=== PATIENT | male | born 1955 | race Caucasian/White ===

== ENCOUNTER 2022-07-02 11:18 | Emergency (ER) | payer OTHER, SELFPAY ==
--- NOTE | ~2022-07-02 | XR_ITS ---
EXAMINATION: XR finger 1st RT min 2V INDICATION: Right first finger pain status post puncture injury TECHNIQUE: Three views of the right first finger are obtained. COMPARISON: None available FINDINGS: Bone alignment is normal. There is no fracture. There is moderate osteoarthritis at the fir st carpometacarpal joint the first interphalangeal joint, and the second metacarpophalangeal joint. T here is soft tissue swelling of the finger. IMPRESSION: 1. Soft tissue swelling without acute osseous abnormality. Reviewed, dictated and finalized at location A.
[2022-07-02 11:32] VITALS: BP 136/74; PULSE 76; RESP 14; TEMP 37.2; O2SAT 98
[2022-07-02 11:39] VITALS: BP 136/74; PULSE 76; RESP 14; TEMP 37.2; O2SAT 98
--- NOTE | 2022-07-02 13:02 | ED.WOUNDLAC ---
HPI - Wound/Laceration General Chief Complaint: Wound/Laceration Stated Complaint: Laceration to Right Hand Time Seen by Provider: 07/02/22 11:35 Source: patient, family, RN notes reviewed and old records reviewed Mode of arrival: ambulatory Limitations: no limitations History of Present Illness HPI narrative: 66 year old male accompanied by presents to express care with complaints of laceration to right hand at the davey aspect of proximal thumb region which occurred at 1000 today when patient was strapping a trailer and handle broke puncturing the palm of right hand near base of thumb. Patient has good mobility of hand and fingers with no tingling or numbness of thumb.Patient has strong right radial pulse. Patient has 2.5cmx 3cm puncture type of laceration bleeding controlled. Patient reports that his tetanus is up to date. Onset (ago): hour(s) (1000 today) Location: other (right hand) Extremity Location: Right: hand Place: outdoors Patient tetanus UTD: Yes Treatments prior to arrival: bandage Related Data Home Medications Medication Instructions Recorded Confirmed lisinopril 20 mg tablet 20 mg PO DAILY 07/02/22 07/02/22 Allergies Allergy/AdvReac Type Severity Reaction Status Date / Time No Known Allergies Allergy Verified 07/02/22 11:37 Review of Systems Review of Systems: CONSTITUTIONAL: Denies fever, chills, or sweats. EYES: Denies visual changes, redness, or discharge. ENT: Denies rhinorrhea, congestion, sore throat, or otalgia. CARDIOVASCULAR: Denies chest pain, palpitations, or edema. RESPIRATORY: Denies cough or dyspnea. GASTROINTESTINAL: Denies abdominal pain, nausea, vomiting, or diarrhea. GENITOURINARY: Denies dysuria or hematuria. SKIN: large laceration to the right davey aspect of right hand near proximal thumb MUSCULOSKELETAL: Denies back pain, joint pain, or myalgia. NEUROLOGIC: Denies headache, numbness, or weakness. PSYCHIATRIC: Positive fro history of anxiety or depression. All systems reviewed & are unremarkable except as noted in HPI and below PMFSH Past Medical History Medical History (Updated 07/05/22 @ 09:40 by Rossana Bustillos NP) COPD (chronic obstructive pulmonary disease) Hypertension Surgical History Surgical History (Updated 07/05/22 @ 09:41 by Rossana Bustillos NP) History of ankle surgery left ankle ORIF Social History Social History (Updated 07/05/22 @ 09:40 by Rossana Bustillos NP) Tobacco type: smokeless tobacco Additional smoking assessment comments: patient smoked for 45 years quit 6 years ago now chews tobacco Alcohol intake: current Alcohol use details: social Substance use type: does not use Living arrangements: with family Occupation/Education: retired Gender identity (if verbalized by the patient): Male Comments At time of signature, agree with nursing past medical, surgical, social and family history. There is no relevant family history pertinent to the presenting complaint Exam Narrative: GENERAL: Well-appearing, well-nourished, and in no acute distress.reports pain level 6/10 HEAD: Normocephalic, atraumatic. EYES: PERRLA and EOMI. ENT: Nares clear, no rhinorrhea or epistaxis. Mucous membranes moist.TM normal with good light reflex, throat pink with no lesions or swelling yers oNECK: Supple.no lymphadenopathy CHEST: Clear to auscultation. No respiratory distress.SAO2 98% HEART: Regular rate and rhythm. No murmur heard. Normal peripheral pulses. ABDOMEN: Soft, nontender, nondistended, normal active bowel sounds. EXTREMITIES: Normal range of motion. No edema. SKIN: Warm, dry, 2.5cm by 3cm laceration with puncture wound and inner tissue laceration surrounded by strips of laceration each side NEURO: No focal deficits. Alert and oriented x3. Course Course Level of Care: Express Care Visit Vital Signs Vital signs: Vital Signs Temperature 37.2 C 07/02/22 11:32 Pulse Rate 76 07/02/22 11:32 Respiratory Rate 14 07/02/22
== END 2022-07-02 13:14 | disposition home or self-care (01) ==
PROVIDERS: Emergency Provider Registered Nurse; PCP Internal Medicine
DX: S61.411A Laceration without foreign body of right hand, initial encounter (principal); T14.90XA Injury, unspecified, initial encounter
CPT/HCPCS: 12001; 73140; 99213; G0463

== ENCOUNTER 2022-08-20 08:47 | Emergency (ER) | payer MEDICARE, SELFPAY ==
--- NOTE | ~2022-08-20 | XR_ITS ---
EXAMINATION: XR chest 2V DATE: 08/20/2022 09:58 INDICATION: Influenza with coarse right lower lung zones TECHNIQUE: PA and lateral views of the chest were obtained. COMPARISON: None FINDINGS: Mild hyperexpansion of lungs. Mild right apical pleural-parenchymal scarring. Perihilar mild bronchia l wall thickening without focal airspace opacities. No pleural effusion or pneumothorax. The cardiome diastinal silhouette is normal. Mild thoracic spondylosis with mild anterior wedging of a few lower t horacic vertebral bodies. IMPRESSION: 1. Mild perihilar bronchial wall thickening without focal airspace opacities which could be seen with bronchitis, viral pneumonia, mild pulmonary edema or reactive airway disease/asthma. Reviewed, dictated and finalized at location B. [employer] IMPRESSION: 1. Mild perihilar bronchial wall thickening without focal airspace opacities wh ich could be seen with bronchitis, viral pneumonia, mild pulmonary edema or heather ctive airway disease/asthma.
[2022-08-20 08:58] VITALS: BP 140/91; PULSE 81; RESP 16; TEMP 37.6; O2SAT 99
--- NOTE | 2022-08-20 09:44 | ED.URI ---
HPI - URI/Sore Throat General Chief Complaint: Upper Respiratory Infection Stated Complaint: Chest Congestion/Cough Time Seen by Provider: 08/20/22 09:44 Source: patient, RN notes reviewed and old records reviewed Mode of arrival: ambulatory Limitations: no limitations History of Present Illness HPI Narrative: 67 year old male presents to [facility] care with complaints of fevers, chills, cough with nasal congestion and drainage since Thursday.Patient reports that he has coughed so much his abdominal muscles are sore, he does have history of COPD. Patient reports that he has had COVID immunizations and also flu shot this year. Patient reports body aches and generalized weakness. MD elicited complaint: fever, cough, rhinorrhea, nasal congestion and other (body aches) Pertinent past history: COPD Onset (ago): day(s) (5) Able to tolerate fluids by mouth: Yes Treatments prior to arrival: acetaminophen, ibuprofen and other (NyQuil and DayQuil) Related Data Home Medications Medication Instructions Recorded Confirmed lisinopril 20 mg tablet 20 mg PO DAILY 07/02/22 08/20/22 budesonide-formoterol HFA 160 2 puff inhalation BID 08/20/22 08/20/22 mcg-4.5 mcg/actuation aerosol inhaler Allergies Allergy/AdvReac Type Severity Reaction Status Date / Time No Known Allergies Allergy Verified 08/20/22 09:22 Review of Systems Review of Systems: CONSTITUTIONAL: reports malaise, chills, sweats, or fever. EYES: Denies visual changes, redness, or discharge. ENT: Reports rhinorrhea, congestion, sinus pain, no otalgia or sore throat. CARDIOVASCULAR: Denies chest pain, palpitations, or edema. RESPIRATORY: Reports cough.? Denies acute dyspnea. GASTROINTESTINAL: Denies abdominal pain, nausea, vomiting, diarrhea SKIN: Denies rash or itching. MUSCULOSKELETAL: Reports myalgia. NEUROLOGIC: Denies headache. All systems reviewed & are unremarkable except as noted in HPI and below [facility] Past Medical History Medical History (Updated 08/21/22 @ 00:00 by Nisha Freeman) COPD (chronic obstructive pulmonary disease) Hypertension Surgical History Surgical History (Updated 07/05/22 @ 09:41 by Rossana Bustillos NP) History of ankle surgery left ankle ORIF Social History Social History (Updated 11/18/22 @ 10:02 by VITALY Bills Tobacco type: smokeless tobacco Additional smoking assessment comments: patient smoked for 45 years quit 2012, now chews tobacco on occasion Alcohol intake: current Alcohol use details: social Substance use type: does not use Gender identity (if verbalized by the patient): Male Comments At time of signature, agree with nursing past medical, surgical, social and family history. There is no relevant family history pertinent to the presenting complaint Exam Narrative: GENERAL: Well-appearing, well-nourished, and in no acute distress. HEAD: Normocephalic EYES: PERRLA, conjunctivae clear ENT: Nares clear, turbinates edematous and erythematous, clear discharge. Mucous membranes moist. TM pearly carr with dull light reflex bilaterally; no tragal tenderness. Oropharynx erythematous without lesions. Tonsils not enlarged and without exudate, no drooling, no hoarseness, no trismus, uvula midline. NECK: Supple. No lymphadenopathy CHEST: Coarse right mid and lower lobe on auscultation, breath sounds equal. No wheezing, rhonchi, rales, or stridor. No respiratory distress, speaks in full sentences.SAO2 99% on room air HEART: Regular rate and rhythm. No murmur heard. SKIN: Warm, dry, no rash. NEURO: Alert and oriented x3. PSYCH: Normal mood and affect Course Course Emergency Course: Patient is aware of diagnosis, understands and agrees to treatment plan.? Anticipatory guidance given.? Patient agrees to follow-up as directed and is aware of reasons to seek care at the emergency department. Portions of this record may have been created with voice recognition software Level
== END 2022-08-20 10:30 | disposition home or self-care (01) ==
PROVIDERS: Emergency Provider Registered Nurse; PCP Internal Medicine
DX: J10.1 Influenza due to other identified influenza virus with other respiratory manifestations (principal); R05.1 Acute cough; J44.9 Chronic obstructive pulmonary disease, unspecified; I10 Essential (primary) hypertension
CPT/HCPCS: 71046; 87804; 99213; G0463

== ENCOUNTER 2025-02-02 09:17 | Emergency (ER) | payer MEDICARE, SELFPAY ==
--- NOTE | ~2025-02-02 | XR_ITS ---
Clinical Indication: Cough PA and lateral views of the chest: Comparison: 08/20/2022 Findings: The lungs are clear, without evidence of focal consolidation or pleural effusion. Cardiome diastinal silhouette is within normal limits. Bones and soft tissues are unremarkable. Impression: Normal chest. Reviewed, dictated and finalized at location . Impression: Normal chest.
--- OUTSIDE RECORDS SUMMARY | 2025-02-02 09:38 | XMS_ITS | Clinical Summary ---
Author Organization [facility] Address [address] [address] Phone Care Team Providers Care Chemical Dependency Professional Name Role Phone Checo Baez MD Primary Care Provider [phone] Allergies No known active allergies Medications budesonide-formo terol fumarate (Symbicort) 160-4.5 MCG/ACT AerosolIndicatio ns:Pulmonary emphysema, unspecified emphysema type (HCC) take 2 Puffs by inhalation 2 times daily. 10.2 g 3 4 Active Additional Information Patient not taking.Reported on 11/23/2024 lisinopril (PRINIVIL, ZESTRIL) 20 MG Tablet TAKE 1 TABLET BY MOUTH EVERY DAY 90 Tablet 1 4 Active Additional Information Patient taking differently: EVERY MORNING, Reported on 12/07/2024 sertraline (ZOLOFT) 100 MG Tablet Take 100 mg by mouth daily. Active atorvastatin (LIPITOR) 40 MG Tablet Take 40 mg by mouth nightly. Active tiotropium-oloda terol (Stiolto Respimat) 2.5-2.5 MCG/ACT Aerosol Solution take 2 Puffs by inhalation every morning. Active ALBUTEROL IN take by inhalation as needed. Active Cyanocobalamin (VITAMIN B12 PO) Take by mouth every other day. Active Cholecalciferol (VITAMIN D3 PO) Take by mouth every other day. Active Active Problems Problem Noted Date Diagnosed Date Adenomatous polyp of sigmoid colon 12/07/2024 Physical exam, annual (Adult) 10/22/2018 Screening for colon cancer 04/12/2018 Panlobular emphysema 08/11/2016 Pulmonary nodules 08/11/2016 Tobacco abuse 02/05/2016 Gastroenteritis 10/17/2015 Hypertension Anxiety Cluster headaches Overview (09/18/2015): 2x week Encounters Date Type Department Care Team Description 12/08/2024 Results Follow-Up [facility] - Gastroenterology - [place] [address] [place] [address] Sukhi Short MD Pathology Surgical 12/07/2024 7:35 AM HEAT TREAT FURNACE OPERATOR Anesthesia Event [facility] Lab Periop [address] [facility] [place] [address] Jesus Washington Jr., [employer] MATE, [employer] OPERATOR 12/07/2024 7:30 AM HEAT TREAT FURNACE OPERATOR - 12/07/2024 8:00 AM HEAT TREAT FURNACE OPERATOR [facility] [address] [facility] [place] [address] Sukhi Short MD COLONOSCOPY- RECTAL POLYPECTOMY AT 10 CM(HOT SNARE), BASE OF RECTAL POLYP AT 10 CM BIOPSY (HOT AND COLD FORCEPS), TATTOO PER INTERJECT AT 10 CM 12/07/2024 6:35 AM HEAT TREAT FURNACE OPERATOR Ancillary [facility] Main [address] [facility] [place] [address] Sukhi Short MD 12/07/2024 6:28 AM HEAT TREAT FURNACE OPERATOR - 12/07/2024 9:02 AM HEAT TREAT FURNACE OPERATOR Hospital Encounter [facility] Lab Preop/Pacu II [address] [facility] [place] [address] Sukhi Short MD Adenomatous polyp of sigmoid colon Discharge Disposition: Discharged to home or Selfcare 12/07/2024 Travel 11/23/2024 Travel 11/08/2024 Telephone [facility] - Gastroenterology - [place] [address] [place] [address] Amina Syed APRN, EDUCATION AND OUTREACH COORDINATOR 11/08/2024 Telephone [facility] - Gastroenterology - [place] [address] [place] [address] Amina Syed APRN, EDUCATION AND OUTREACH COORDINATOR 11/07/2024 Telephone [facility] - Family Medicine - [place] [address] [place] [address] Checo Baez MD 11/07/2024 Telephone [facility] Call Center [address] [place] [address] Checo Baez MD Referral from Last 3 Months Immunizations Immunization Administration Dates Next Due COVID-19, MRNA, LNP-S, BIVAL ENT , PFIZER, 30 MCG/0.3 ML (12+ Y/O) 07/24/2022 Covid-19, Mrna, Lnp-s, Pf, 3 0 Mcg/0.3 Ml Dose (Pfizer) 12/23/2020,12/02/2020 Influenza Vaccine, Quadrivalent, PF 07/05,06/21/2021,06/08/2020,10/22,10/13/2017,08/11/2016,07/02/2015 Influenza, Quadrivalent, Adjuvanted 07/01/2023 Influenza, high-dose, trivalent, PF 10/13/2024 PUR FLU 3+ YRS PRES FREE QUAD IM 08/11/2016 Pneumococcal Vaccine Adult - 23 Valent 4 Pneumococcal conjugate PCV20 , polysaccharide VYD113 conjugate, adjuvant, PF 07/15/2022 Tetanus Toxoid, Unspecified Formulation 11/05/2011 Family History Medical History Relation Name Comments Cancer Father Congestive Heart Failure Mother Relation Name Status Comments Father Mother Alive Social History Tobacco Use Types Packs/Day Years Used Date Smoking Tobacco: Former Cigarettes Q uit: 02/25/2016 Smokeless Tobacco: Current Chew Tobacco Cessation:Ready to Q uit: Not Asked; Counseling Given: Not Answered Alcohol Use Standard Drinks/Week Comments Yes 10 (1 standard drink = 0.6 oz pu re alcohol) a week PHQ-2 Answer Date Recorded Total Score - Questions 1-9 0 12/04 Education Answer Date Recorded What is the highest level of school you have completed or the highest degree you have received? 12th grade 07/01/2023 Sexually Active Control Partners Comments Yes Female Sex and Gender Information Value Date Recorded Sex Assigned at Not on file Legal Sex Male 7:07 PM CDT Gender Identity Not on file Sexual Orientation Not on file Last Filed Vital Signs Vital Sign Reading Time Taken Comments Blood Pressure 112/72 12/07/2024 8:47 AM HEAT TREAT FURNACE OPERATOR Pulse 58 12/07/2024 8:47 AM HEAT TREAT FURNACE OPERATOR Temperature 36 C (96.8 F) 12/07/2024 8:47 AM HEAT TREAT FURNACE OPERATOR Respiratory Rate 18 12/07/2024 8:47 AM HEAT TREAT FURNACE OPERATOR Oxygen Saturation 100% 12/07/2024 8:47 AM HEAT TREAT FURNACE OPERATOR Inhaled Oxygen Concentration - - Weight 75.8 kg (167 lb) 11/23/2024 10:01 AM HEAT TREAT FURNACE OPERATOR Height 180.3 cm (5' 11 ) 11/23/2024 10:01 AM HEAT TREAT FURNACE OPERATOR Body Mass Index 23.29 11/23/2024 10:01 AM HEAT TREAT FURNACE OPERATOR Plan of Treatment Health Maintenance Due Date Last Done Comments Hepatitis C Virus (HCV) Screening 1955 TdaP Immunization 1955 Zoster Immunization (1 of 2) 2007 Respiratory Syncytial Virus (RSV) Immunization (Adult) (1 - Risk 60-74 years 1-dose series) 2017 Immunochemical Fecal Occult Blood 04/16/2019 04/16/2018 AAA Screening Ultrasound 2022 Cologuard 01/06/2025 01/06/2022, 05/16/2019 SARS-COV-2 Immunization ( season) 2025 10/13/2024, 07/29/2023, 07/24/2022, Additional history exists Colonoscopy 12/08/2027 12/07/2024 Colorectal Cancer Screening 12/08/2027 12/07/2024 Pneumococcal Immunization (50+ years) Completed 07/15/2022, 06/05/2014 Pneumococcal Immunization Combined Discontinued 07/15/2022, 06/05/2014 PSA Discussion Completed 07/14/2023, 12/03, 01/28/2016 Influenza Immunization Completed , 07/01/2023, 07/15/2022, Additional history exists Hepatitis B Immunization Aged Out No longer eligible based on patient's age to complete this topic Meningococcal Immunization (ACWY) Aged Out No longer eligible based on patient's age to complete this topic Rotavirus Immunization Aged Out No lo nger eligible based on patient's age to complete this topic Procedures Procedure Name Priority Date/Time Associated Diagnosis Comments PATHOLOGY SURGICAL Routine 12/07/2024 7: 52 AM HEAT TREAT FURNACE OPERATOR COLON CA SCRN NOT HI RSK IND 12/07/2024 7:35 AM HEAT TREAT FURNACE OPERATOR COLONOSCOPY- RECTAL POLYPECTOMY AT 10 CM(HOT SNARE), BASE OF RECTAL POLYP AT 10 CM BIOPSY (HOT AND COLD FORCEPS), TATTOO PER INTERJECT AT 10 CM Special Needs Dx pos cologuard COLORECTAL SCRN; HI RISK IND 12/07/2024 7:35 AM HEAT TREAT FURNACE OPERATOR COLONOSCOPY- RECTAL POLYPECTOMY AT 10 CM(HOT SNARE), BASE OF RECTAL POLYP AT 10 CM BIOPSY (HOT AND COLD FORCEPS), TATTOO PER INTERJECT AT 10 CM Special Needs Dx pos cologuard VA COLONOSCOPY FLX DX W/COLLJ SPEC WHEN PFRMD 12/07/2024 7:35 AM HEAT TREAT FURNACE OPERATOR COLONOSCOPY- RECTAL POLYPECTOMY AT 10 CM(HOT SNARE), BASE OF RECTAL POLYP AT 10 CM BIOPSY (HOT AND COLD FORCEPS), TATTOO PER INTERJECT AT 10 CM Special Needs Dx pos cologuard GI IMAGING - COLONOSCOPY Routine 12/07/2024 6:30 AM HEAT TREAT FURNACE OPERATOR PSA FREE & TOTAL 07/14/2023 12:0 0 AM CDT COLOGUARD Routine 01/06/2022 10:30 AM CDT Screening for colon cancer STOOL, OCCULT BLOOD IMMUNOASSAY (IFOB) Routine 04/16/2018 Screening for colon cancer from Last 3 Months or Most Recently Relevant to Health Maintenance Results * Pathology Surgical (12/07/2024 7:52 AM HEAT TREAT FURNACE OPERATOR) Case Report Surgical Pathology Report Case: [id number] Authorizing Provider: Sukhi Short MD Collected: 12/07/2024 07:52 AM Ordering Location: [facility] Received: 12/07/2024 09:52 [facility] Lab Preop/Pacu II Pathologist: Janie Rivas MD PhD Specimens: A) - Rectal, RECTAL POLYP AT 10 CM B) - Rectal, BASE OF RECTAL POLYP AT 10 CM 12/08/2024 8:48 AM HEAT TREAT FURNACE OPERATOR [facility] FINAL DIAGNOSIS A. Rectal polyp, polypectomy: - Tubular adenoma B. Base of rectal polyp at 10 cm, polypectomy: - Tubular adenoma 12/08/2024 8:48 AM HEAT TREAT FURNACE OPERATOR [facility] at 0848 HEAT TREAT FURNACE OPERATOR Pre-Operative Diagnosis POSITIVE COLOGUARD TEST 12/08/2024 8:48 AM HEAT TREAT FURNACE OPERATOR [facility] Gross Description A. RECTAL POLYP AT 10 CM The specimen presents in two formalin containers for gross and microscopic examination labeled with the patient's name, Emerson Larry. Part A is designated as rectal polyp at 10 cm. The specimen consists of multiple fragments of pink-machado tissue ranging from a fraction of a millimeter up to the largest measuring 1 cm in greatest dimension. The largest tissue will be bisected and submitted in cassette A1 and the remainder of the tissue will be submitted in cassette A2. B. BASE OF RECTAL POLYP AT 10 CM Part B is designated as base of rectal polyp at 10 cm. The specimen consists of four pieces of pink-machado to bright red tissue measuring 0.1 to 0.3 cm in greatest dimension. All submitted cassette B1. Total time of fixation is 13 hours, 54 minutes. KS/sb 12/08/2024 8:48 AM HEAT TREAT FURNACE OPERATOR [facility] Microscopic Description Microscopic examination was performed which supports the final diagnosis. All control tissues stained appropriately. 12/08/2024 8:48 AM HEAT TREAT FURNACE OPERATOR [facility] Tissue (Rectal) 12/07/2024 7 :52 AM HEAT TREAT FURNACE OPERATOR 12/07/2024 9:52 AM HEAT TREAT FURNACE OPERATOR Tissue specimen (specimen) (Rectal) 12/07/2024 8:00 AM HEAT TREAT FURNACE OPERATOR 12/07/2024 9:52 AM HEAT TREAT FURNACE OPERATOR us Sukhi Lj Short MD PATHOLOGY/CYTOLOGY ORDERAB LES Final Result [facility] [address] [facility] [place] [address] * GI IMAGING - COLONOSCOPY (12/07/2024 6:30 AM HEAT TREAT FURNACE OPERATOR) Sukhi Short MD IMG DIAGNOSTIC ORDERABLES Final Result * PSA FREE & TOTAL (07/14/2023 12:00 AM CDT) PSA (PROSTATE SPECIFIC ANTIGEN) 3.13 ng/mL SCAN 07/14/2023 Checo Baez MD CHEMISTRY ORDERABLES Final Re sult Performing Organization Address [facility] Co de Phone Number SCAN * COLOGUARD (01/06/2022 10:30 AM CDT) Cologuard Negative Negative [facility] Comment: NEGATIVE TEST RESULT. A negative Cologuard result indicates a low likelihood that a colorectal cancer (CRC) or advanced adenoma (adenomatous polyps with more advanced pre-malignant features) is present. The chance that a person with a negative Cologuard test has a colorectal cancer is less than 1 in 1500 (negative predictive value >99.9%) or has an advanced adenoma is less than 5.3% (negative predictive value 94.7%). These data are based on a prospective cross-sectional study of 10,000 individuals at average risk for colorectal cancer who were screened with both Cologuard and colonoscopy. (Adri Parra al, N Engl J Med 2014;370(14):2899-3022) The normal value (reference range) for this assay is negative. COLOGUARD RE-SCREENING RECOMMENDATION: Periodic colorectal cancer screening is an important part of preventive healthcare for asymptomatic individuals at average risk for colorectal cancer. Following a negative Cologuard result, the [place] Cancer Society and U.S. Multi-Society Task Force screening guidelines recommend a Cologuard re-screening interval of 3 years. References: [place] Cancer Society Guideline for Colorectal Cancer Screening: https://www.cancer.org/cancer/ovjhz-qjnzdl-vyalgs/qvolrfgna-bqdgzttpr-dvobxho/ acs-recommendations.html.; Tarik DK, Duc CR, Mariaelena CarrizalesK, Colorectal Cancer Screening: Recommendations for Physicians and Patients from the U.S. Multi-Society Task Force on Colorectal Cancer Screening , Am J Gastroenterology 2017; 112:9207-7857. TEST DESCRIPTION: Composite algorithmic analysis of stool DNA-biomarkers with hemoglobin immunoassay. Quantitative values of individual biomarkers are not reportable and are not associated with individual biomarker result reference ranges. Cologuard is intended for colorectal cancer screening of adults of either sex, 45 years or older, who are at average-risk for colorectal cancer (CRC). Cologuard has been approved for use by the U.S. FDA. The performance of Cologuard was established in a cross sectional study of average-risk adults aged 50-84. Cologuard performance in patients ages 45 to 49 years was estimated by sub-group analysis of near-age groups. Colonoscopies performed for a positive result may find as the most clinically significant lesion: colorectal cancer [4.0%], advanced adenoma (including sessile serrated polyps greater than or equal to 1cm diameter) [20%] or non- advanced adenoma [31%]; or no colorectal neoplasia [45%]. These estimates are derived from a prospective cross-sectional screening study of 10,000 individuals at average risk for colorectal cancer who were screened with both Cologuard and colonoscopy. (Adri Mccoy et al, N Engl J Med 2014;370(14):4111-2195.) Cologuard may produce a false negative or false positive result (no colorectal cancer or precancerous polyp present at colonoscopy follow up). A negative Cologuard test result does not guarantee the absence of CRC or advanced adenoma (pre-cancer). The current Cologuard screening interval is every 3 years. ([place] Cancer Society and U.S. Multi-Society Task Force). Cologuard performance data in a 10,000 patient pivotal study using colonoscopy as the reference method can be accessed at the following location: www.[employer]/results. Additional description of the Cologuard test process, warnings and precautions can be found at www.[employer].com. Stool 01/06/2022 10:3 0 AM CDT 01/07/2022 1:42 PM CDT Checo Baez MD BODY FLUIDS & STOOLS ORDERABL ES Final Result [facility] [address] [place] [address], [facility] [address] [place] [address] * STOOL, OCCULT BLOOD IMMUNOASSAY (IFOB) (04/16/2018) Specimen of unknown material (specimen) STOOL SPECIMEN / Unknown Checo Baez MD BODY FLUIDS & STOOLS ORDERABL ES Final Result from Last 3 Months or Most Recently Relevant to Health Maintenance Insurance MEDICARE C AETNA Care Teams Chemical Dependency Professional Relationship Specialty Start Date End Date Checo Baez MD [address] [place] [address] PCP - General Family Medicine 09/05/15
--- OUTSIDE RECORDS SUMMARY | 2025-02-02 09:38 | XMS_ITS | Encounter Summary ---
Author Name [facility] Organization [facility] Address [address] [place] [address] Care Team Providers Care Web Development Consultant Name Role Phone NITHYA CASTILLO Primary Care Provider Unavailab le Insurance Providers: All historical and current Section Date Range: From patient's date of to the date document was created. This section includes the names of all active insurance providers for the patient. Insurance Provider Type of Coverage Plan Name Start of Policy Coverage End of Policy Coverage Group Number Member ID Insurance Provider's Telephone Number Policy Perez's Name Patient's Relationship to Policy Perez AETNA [facility] (WNR) MEDICARE ADVANTAGE [facility] (WNR) Jul 05, 2022 [id number] JITENDRA MOON PATIENT Selected Encounter This section includes the information on record at [place] for the Encounter. Date/Time Encounter Type Encounter Description Reason Provider Source Jan 02, 2025 12:30 PM Outpatient Encounter [facility]AL INTERNAL MEDICINE G[facility]O ADAMS Encounter Template Text not used by [place] Plan of Treatment: Future Appointments (+ 6 months) and Future Tests (+/- 45 days) The Plan of Treatment section includes future care activities for the patient from all [facility] treatment[facility]. This section includes future appointments and future orders which are active, pending or scheduled. Future Appointments This section includes appointments that were scheduled to occur 6 months from the date of the Encounter, up to a maximum of 20 appointments. The data comes from all [facility]. Appointment Date/Time Appointment Type Appointme nt Facility Name Jan 05, 2025 09:00 AM AMBULATORY - MEDICINE [facility] Jan 11, 2025 08:30 AM AMBULATORY - MEDICINE [facility] Jan 13, 2025 11:00 AM AMBULATORY - MEDICINE [facility] February 23, 2025 01:00 PM AMBULATORY - MEDICINE [facility] Apr 13, 2025 02:00 PM AMBULATORY - MEDICINE [facility] Jun 02, 2025 10:30 AM AMBULATORY - SURGERY [facility] Active, Pending, and Scheduled Orders This section includes a listing of several types of active, pending, and scheduled orders, including clinic medications orders, diagnostic test orders, procedure orders and consult orders; where the start date of the order is 45 days before the date of the Encounter or 45 days after the date of theEncounter. The data comes from all [facility]. Test Date/Time Test Type Test Details Facility Name Nov 28, 2024 12:00 AM Laboratory - Chemi stry Order HEPATIC FUNTION PANEL (STL) GREEN LI/HEP BLD/PLAS PLASMA SP [facility] Jan 05, 2025 10:34 AM Procedure Order PFT PROCED URE [facility] PULMONARY FUNCTION TEST (PFT) OUTPT VANGIE Proc Inclusion Teacher's Choice [facility] Lab Results: +/- 30 days of the encounter This section includes the Chemistry and Hematology Lab Results on record with [place] for the patient. Radiology Reports and Pathology Reports are provided separately, in subsequent sections. Lab Results This section contains the Chemistry/Hematology Results that were resulted 30 days before or 30 daysafter the date of the Encounter. Date/Time Source Result Type Result - Unit Interpretation Reference Range Specimen Type Comment Jan 13, 2025 12:00 AM [facility] LIPID PANEL (STL) PLASMA Specimen Type: PLASMA No comment entered. Ordering Provider: NITHYA CASTILLO Report Released Date/Time: Oct 14, 2024 02:56 PM Reporting Lab: [address] [address] Performing Lab: [facility] [address] [facility] [address] CHOLESTEROL 160 mg/dL 0-200 TRIGLYCERIDE 94 mg/dL 0-150 CALCULATED LDL 93 mg/dL HDL(New) 48 mg/dL >40 Jan 13, 2025 12:00 AM [facility] PROST. SPECIFIC AG.(PB-STL) SERUM Specimen Ty pe: SERUM Comment: The listed sex of this patient may not be a typical indication for this test. Therefore, reference ranges or interpretive criteria listed may not be valid. Clinical correlation suggested. Ordering Provider: CHRISTIANO GAMBOA Report Released Date/Time: Jan 05, 2025 05:42 PM Reporting Lab: [address] [address] Performing Lab: [address] [address] PROST. SPECIFIC AG.(PB-STL) 4.366 ng/mL HH 0-4 Vital Signs: All taken on the encounter date This section contains inpatient and outpatient Vital Signs collected on the date of the Encounter. Date/Time Temperature Pulse Blood Pressure Respiratory Rate SP02 Pain Height Weight Body Mass Index Source Jan 02, 2025 12:44 PM 97.6 65 148/88 20 97 0 71 174.7 24 [facility] Radiology Reports: +/- 30 days of the encounter Radiology Reports For cases when an order for radiology services may have been completed prior to the date of the Encounter, the report list includes the Radiology Reports that were completed up to 30 days before dateof the Encounter. For cases when an order for radiology services may have been completed after the date of the Encounter, the report list also includes the Radiology Reports that were completed up to30 days after date of the Encounter. The data comes from all [place] treatment facilities. Date/Time Radiology Report Provider Source Dec 06, 2024 01:30 PM MRI PROSTATE W&W/O CONTRAST: JITENDRA MOON [id number] -[id number] M Exm Date: DEC 06, 2024@13:30 Req Phys: CHRISTIANO GAMBOA Pat Loc: -UROLOGY 1 (Req'g Loc) Img Loc: OUTSIDE [facility]-MRI Service: Unknown (Case [id number] COMPLETE) MRI PROSTATE W&W/O CONTRAST (MRI Detailed) CPT:35171 Reason for Study: OUTSIDE EXAM Clinical History: OUTSIDE EXAM Report Status: Electronically Filed Date Reported: DEC 08, 2024 Report: This study was performed outside the [facility] in another facility and images were uploaded into [employer]. The report has been scanned into [employer]. In order to upload images a case number was needed, therefore this is an administrative report. Impression: This study was performed outside the [facility] in another facility and images were uploaded into [employer]. The report has been scanned into [employer]. In order to upload images a case number was needed, therefore this is an administrative report VERIFIED BY: / *ELECTRONICALLY FILED* [facility] Encounter Notes: All associated encounter notes This section contains the clinical notes associated to the Encounter. Date/Time Encounter Note(s) Provider Source Jan 02, 2025 01:03 PM ENVIRONMENTAL HEAL TH NOTE: LOCAL TITLE: ENVIRONMENTAL EXPOSURE ASSESSMENT STANDARD TITLE: ENVIRONMENTAL HEALTH NOTE DATE OF NOTE: JAN 02, 2025@13:03 ENTRY DATE: JAN 02, 2025@13:03:40 AUTHOR: GATO ADAMS EXP COSIGNER: URGENCY: STATUS: COMPLETED was scheduled for an GERRY asbestos exam, and is NOT service connected. He was notified there may be a charge for the exam, and he declined the appt. He states someone called him and scheduled the exam, but he was not aware of a copay charge with the GERRY f2f exam. The appt. will be cancelled by clinic, at the veterans request. /es/ GATO ADAMS MSN FOOD SERVICE STEWARD ANP-BC Nurse Practitioner Primary Care Signed: 01/02/2025 13:26 GATO AADMS [facility]
--- OUTSIDE RECORDS SUMMARY | 2025-02-02 09:38 | XMS_ITS | Continuity of Care Document ---
Author Organization [facility] Address [id number] [place] [address] [address] [place] [address] Phone Care Team Providers Care Sumo Wrestler Name Role Phone Carolyn Vargas Unavailable Unavailable Advance Directives Directive Yes / No Effective Date File Name No Information Encounters Encounter Description Practice Location Reason(s) For Visit Diagnoses Date Provider Providers Copied on Encounter [facility], [address], [place], [place], [id number], [place] tel:[phone] [facility] No Information 4-[address] Alicia Leon. [address] , [address], [place], [address], [place]. tel:[phone] Family History Family Member Type Diagnosis Age At Onset No Information Payers Payer name Insurance type Covered republican ID Authoriza tiradha(s) Taylor Gonsales [id number] Social History Type Description Quantity Date Captured Comments Sex Male Smoking Status No Information Chief Complaint And Reason For Visit No Information Reason For Referral Reason For Referral No Information History Of Present Illness Encounter Date Complaint History Of Prese nt Illness No Information Functional Status Date Functional Assessmen t No Information Instructions Date Instruction Additional Infor mation No Information Assessments Type Assessment Date No Information Patient Care Teams Name Effective Dates (start - stop) Status Members No Information
--- OUTSIDE RECORDS SUMMARY | 2025-02-02 09:39 | XMS_ITS | Encounter Summary ---
Author Organization [facility] Address [address] [place] [address] Phone Care Team Providers Care Lead Pourer Name Role Phone Checo Baez MD Primary Care Provider [phone] Reason for Visit * Reason Comments Medication Refill Encounter Details Date Type Department Care Team ([facility] st Contact Info) Description 07/02/2021 Refill [facility] [address] [place], [place] [id number] Checo Baez MD [address] [address] Medication Refill Social History Tobacco Use Types Packs/Day Years Used Date Smoking Tobacco: Former Cigarettes Q uit: 02/25/2016 Smokeless Tobacco: Current Chew Alcohol Use Standard Drinks/Week Comments Yes 10 (1 standard drink = 0.6 oz pu re alcohol) PHQ-2 Answer Date Recorded Total Score - Questions 1-9 0 06/05 Sexually Active Control Partners Comments Yes Female Sex and Gender Information Value Date Recorded Sex Assigned at Not on file Legal Sex Male 7:07 PM CDT Gender Identity Not on file Sexual Orientation Not on file COVID-19 Exposure Response Date Recorded In the last month, have you been in contact with someone who was confirmed or suspected to have Coronavirus / COVID-19? No / Unsure 06/21/2021 8:21 AM CDT documented as of this encounter Miscellaneous Notes * Telephone Encounter - Checo Baez MD - 07/02/2021 1:05 PM CDT Prescription approved. Please call in * Telephone Encounter - Hannah Manzo RN - 07/02/2021 1:03 PM CDT Medication failed the protocol, provider to review and approve the medication order if appropriate. Requested Prescriptions Pending Prescriptions Disp Refills lisinopril (PRINIVIL, ZESTRIL) 20 MG Tablet [Pharmacy Med Name: LISINOPRIL 20 MG TAB 20 Tablet] 30 Tablet 1 Sig: TAKE ONE TABLET BY MOUTH EVERY DAY MARIA A Inhibitors Protocol Failed - 07/02/2021 1:03 PM Failed - Serum potassium on record in past 12 months No results found for: POTASSIUM, POCTK Failed - GFR on record in past 12 months No results found for: GFRNA Passed - Blood pressure on record in past 12 months Clinician-entered: BP Readings from Last 3 Encounters: 06/21/21 122/86 12/07/20 128/66 06/08/20 124/82 Patient-entered: No data recorded Passed - Visit with relevant provider in past 12 months or upcoming 90 days Recent Visits Date Type Provider Dept 06/21/21 Office Visit Checo Baez MD [facility] 12/07/20 Office Visit [facility] Showing recent visits within past 365 days and meeting all other requirements Future Appointments No visits were found meeting these conditions. Showing future appointments within next 90 days and meeting all other requirements documented in this encounter Plan of Treatment Not on file documented as of this encounter Visit Diagnoses Not on filedocumented in this encounter Additional Health Concerns Assessment Noted Time PHQ-9 Depression Total Score: 0 06/21/20 21 8:00 AM CDT documented as of this encounter Care Teams Lead Pourer Relationship Specialty Start Date End Date Checo Baez MD [address] [address] PCP - General Family Medicine 09/05/15 documented as of this encounter
--- OUTSIDE RECORDS SUMMARY | 2025-02-02 09:39 | XMS_ITS | Continuity of Care Document ---
Author Name [facility] Organization [facility] Care Team Providers [employer] C[employer] Name Role Phone [facility] Unavailable Unavailable Problems Combined list of problems from Department of Defense and [facility] facilities. It does not include entries that were removed or entered in error. Problem Status Onset Date Problem Type Date of Resolution Comments Source COPD - Chronic Obstructive Pulmonary Disease ([facility] [id number]) Active Condition [facility] Current drinker Active Condition [facility] Depression Active Condition [facility] Erectile Dysfunction ([facility] [id number]) Active Condition [facility] Ex-tobacco user Active Condition [facility] Exposure to potentially hazardous substance ([facility] [id number]) Active Condition Apr 20 4 Entered By: ROMAIN RAO Comment: Entered automatically through [facility] Problem List documentation program [facility] HTN - Hypertension ([facility] [id number]) Active Condition [facility] Obstructive sleep apnea syndrome Active Condition [facility] Diagnosis: ICD-10-CM G47.33 Obstructive sleep apnea (adult) (pediatric) Active Diagnosis [facility] Diagnosis: ICD-10-CM F33.1 Major depressive disorder, recurrent, moderate Active Diagnosis [facility] Diagnosis: ICD-10-CM G47.30 Sleep apnea, unspecified Active Diagnosis [facility] Diagnosis: ICD-10-CM Z12.2 Encntr screen for malignant neoplasm of respiratory organs Active Diagnosis [facility] Diagnosis: ICD-10-CM J44.9 Chronic obstructive pulmonary disease, unspecified Active Diagnosis [facility] Diagnosis: ICD-10-CM R97.20 Elevated prostate specific antigen [PSA] Active Diagnosis [facility] Diagnosis: ICD-10-CM R97.21 Rising PSA fol treatment for malignant neoplasm of prostate Active Diagnosis [facility] Diagnosis: ICD-10-CM R19.5 Other fecal abnormalities Active Diagnosis [facility] Diagnosis: ICD-10-CM Z23 Encounter for immunization Active Diagnosis [facility] Diagnosis: ICD-10-CM I10 Essential (primary) hypertension Active Diagnosis [facility] Diagnosis: ICD-10-CM F32.A Depression, unspecified Active Diagnosis [facility] Diagnosis: ICD-10-CM R91.8 Other nonspecific abnormal finding of lung field Active Diagnosis [facility] Diagnosis: ICD-10-CM F33.0 Major depressive disorder, recurrent, mild Active Diagnosis [facility] Diagnosis: ICD-10-CM R76.0 Raised antibody titer Active Diagnosis [facility] Diagnosis: ICD-10-CM F43.12 Post-traumatic stress disorder, chronic Active Diagnosis [facility] Diagnosis: ICD-10-CM Z53.21 Proc/trtmt not crd out d/t pt lv bef seen by [facility] care prov Active Diagnosis [facility] Diagnosis: ICD-10-CM Z55.9 Problems related to education and literacy, unspecified Active Diagnosis [facility] Diagnosis: ICD-10-CM F41.1 Generalized anxiety disorder Active Diagnosis [facility] Diagnosis: ICD-10-CM Z00.00 Encntr for general adult medical exam w/o abnormal findings Active Diagnosis [facility] Medications Combined list of outpatient medications from Department of Defense and Veterans Affairs facilities.Medications provided include 1) outpatient medications from the last 15 months, and 2) patient-reported medications. Medication Details Route Status Patient Instructions Prescription Expires Prescription Number Last Dispense Date Ordering Provider Order Date Order Qty Source ALBUTEROL SO4 90MCG/ACTUA T (CFC-F) INHL,ORAL,8 .5GM INHALE 2 PUFFS ORAL INHALATI ON FOUR TIMES A DAY NEEDED FOR COPD SHAKE WELL. RINSE MOUTHPIE CE FREQUENT LY TO PREVENT CLOGGING . RESPIR ATORY (INHAL ATION) ACTIVE 01/06/2026 [id number] SENG COKER RRI 2024 4 [facility] N ALBUTEROL SO4 90MCG/ACTUA T (CFC-F) INHL,ORAL,8 .5GM INHALE 2 PUFFS ORAL INHALATI ON FOUR TIMES A DAY NEEDED FOR COPD SHAKE WELL. RINSE MOUTHPIE CE FREQUENT LY TO PREVENT CLOGGING . RESPIR ATORY (INHAL ATION) DISCONT INUED (EDIT) 04/17/2025 [id number] 4 NITHYA CASTILLO 2023 3 [facility] ATORVASTATI N CA 40MG TAB TAKE ONE-HALF TABLET BY MOUTH EVERY EVENING FOR HIGH CHOLESTE ROL ORAL ACTIVE 10/15/2025 [id number] 5 NITHYA CASTILLO 2024 45 [facility] FAMOTIDINE 20MG TAB TAKE ONE TABLET BY MOUTH TWICE A DAY FOR GASTROES OPHAGEAL REFLUX DISEASE ORAL 10/04/2024 [id number] 4 RYANNE STOKES 2023 180 [facility] FLUTICASONE 250MCG/SALM ETEROL 50MCG INHL,ORAL,D ISKUS,60 INHALE 1 INHALATI ON ORAL INHALATI ON TWICE A DAY FOR COPD (OPEN DISKUS; CLICK ONLY ONCE; MAY INHALE TWICE TO COMPLETE DOSE; CLOSE WHEN FINISHED ) RINSE MOUTH AND SPIT AFTER EACH USE. RESPIR ATORY (INHAL ATION) DISCONT INUED BY PROVIDE R 04/17/2025 [id number] 4 NITHYA CASTILLO 2023 3 [facility] LISINOPRIL 40MG TAB TAKE ONE-HALF TABLET BY MOUTH ONCE A DAY FOR HIGH BLOOD PRESSURE ORAL ACTIVE 04/17/2025 [id number] 5 NITHYA CASTILLO 2023 45 [facility] OLODATEROL 2.5MCG/TIOT ROPIUM 2.5MCG/ACTU AT INHL,ORAL,6 0D,4GM INHALE 2 PUFFS BY ORAL INHALATI ON ONCE A DAY FOR COPD ADMINIST ER AT SAME TIME EACH DAY RESPIR ATORY (INHAL ATION) SUSPEND ED 01/06/2026 [id number] SENG COKER RRI 2024 3 [facility] OLODATEROL 2.5MCG/TIOT ROPIUM 2.5MCG/ACTU AT INHL,ORAL,6 0D,4GM INHALE 2 PUFFS BY ORAL INHALATI ON ONCE A DAY FOR COPD ADMINIST ER AT SAME TIME EACH DAY RESPIR ATORY (INHAL ATION) DISCONT INUED 07/07/2025 [id number] 5 RYANNE STOKES 2023 3 [facility] SERTRALINE HCL 100MG TAB TAKE ONE TABLET BY MOUTH EVERY MORNING ORAL SUSPEND ED 10/13/2025 [id number] 5 NITHYA CASTILLO 2024 90 [facility] SERTRALINE HCL 100MG TAB TAKE ONE TABLET BY MOUTH EVERY MORNING ORAL DISCONT INUED (EDIT) 09/01/2025 [id number] 4 NITHYA CASTILLO 2023 30 [facility] SERTRALINE HCL 100MG TAB TAKE ONE-HALF TABLET BY MOUTH EVERY MORNING FOR DEPRESSI ON ORAL DISCONT INUED (EDIT) 05/31/2025 [id number] 4 NITHYA CASTILLO 2023 15 [facility] TADALAFIL 20MG TAB TAKE ONE TABLET BY MOUTH EVERY WEEK NEEDED FOR ERECTILE DYSFUNCT ION (TAKE 30 MINUTES PRIOR TO SEXUAL ACTIVITY ) - LIMIT 18 DOSES PER 90 DAYS ORAL ACTIVE 10/13/2025 [id number] 5 NITHYA CASTILLO 2024 18 [facility] Immunizations Combined list of available immunizations from the Department of Defense and [facility] facilities. Immunization Series Date Given Administered By Site Reaction Lot Number CVX Code Drug Hemodialysis Technician Status Comments Source COVID-19 ([employer]), MRNA, LNP-S, PF, DEVAUGHN-SUCROSE, 30 MCG/0.3 ML (AGES 12+ YEARS) 2024 CELESTE LACEY RIGHT DELTO ID [id number] 309 complet ed Completed Series, [facility] INFLUENZA, HIGH-DOSE, TRIVALENT, PF 2024 CELESTE LACEY LEFT DELTO ID [id number] 135 complet ed Completed Series, [facility] Results Combined list of recent chemistry, hematology and other laboratory results from Department of Defense and Veterans Affairs, ranging from 15 months to all on record, depending upon the facility. Order Name Results Value Reference Range Date Interpretation Specimen Comments Source LIPID PANEL (STL) CHOLESTERO L [MASS/VOLU ME] IN SERUM OR PLASMA 160 mg/dL 0 - 200 01/13 Specimen Type: PLASMA No comment entered. Ordering Provider: YAYA CASTILLO Report Released Date/Time: Oct 14, 2024 02:56 PM Reporting Lab: [facility] [phone] Performing Lab: [facility] [address] [place] [phone] [place] [address] [facility] LIPID PANEL (STL) TRIGLYCERI DE [MASS/VOLU ME] IN SERUM OR PLASMA 94 mg/dL 0 - 150 01/13 Specimen Type: PLASMA No comment entered. Ordering Provider: YAYA CASTILLO Report Released Date/Time: Oct 14, 2024 02:56 PM Reporting Lab: [facility] [address] Performing Lab: [facility] [address] [place] [phone] [facility] LIPID PANEL (STL) CHOLESTERO L IN LDL [MASS/VOLU ME] IN SERUM OR PLASMA BY CALCULABREANNAO N 93 mg/dL 01/13 Specimen Type: PLASMA No comment entered. Ordering Provider: YAYA CASTILLO Report Released Date/Time: Oct 14, 2024 02:56 PM Reporting Lab: [facility] [address] Performing Lab: [facility] [address] [place] [phone] [facility] LIPID PANEL (STL) CHOLESTERO L IN HDL [MASS/VOLU ME] IN SERUM OR PLASMA 48 mg/dL 40 01/13 Specimen Type: PLASMA No comment entered. Ordering Provider: YAYA CASTILLO Report Released Date/Time: Oct 14, 2024 02:56 PM Reporting Lab: [place] [address] [facility] [phone] Performing Lab: [address] [facility] PROST. SPECIFIC AG.(PB-S TL) PROSTATE SPECIFIC AG [MASS/VOLU ME] IN SERUM OR PLASMA 4.366 ng/mL 0 - 4 01/13 Specimen Type: SERUM Comment: The listed sex of this patient may not be a typical indication for this test. Therefore, reference ranges or interpretiv e criteria listed may not be valid. Clinical correlation suggested. Ordering Provider: CHRISTIANO GAMBOA Report Released Date/Time: Jan 05, 2025 05:42 PM Reporting Lab: [address] [phone] Performing Lab: [address] URINALYS IS (STL-PB) COLOR OF URINE Colorles s 10/17 Specimen Type: URINE No comment entered. Ordering Provider: YAYA CASTILLO Report Released Date/Time: Oct 14, 2024 12:15 PM Reporting Lab: [address] [address] Performing Lab: [address] [phone] [place] [address] [facility] URINALYS IS (STL-PB) BILIRUBIN. TOTAL [PRESENCE] IN URINE BY TEST STRIP Negative mg/dL 10/17 Specimen Type: URINE No comment entered. Ordering Provider: YAYA CASTILLO Report Released Date/Time: Oct 14, 2024 12:15 PM Reporting Lab: [address] [phone] Performing Lab: [address] [phone] [place] [address] [facility] URINALYS IS (STL-PB) PH OF URINE BY TEST STRIP 7.0 5.0 - 8.0 10/17 Specimen Type: URINE No comment entered. Ordering Provider: YAYA CASTILLO Report Released Date/Time: Oct 14, 2024 12:15 PM Reporting Lab: [facility] [address] [place], [place] [phone] Performing Lab: [facility] [place] [phone] [place] [address] [facility] URINALYS IS (STL-PB) APPEARANCE OF URINE Clear 10/17 Specimen Type: URINE No comment entered. Ordering Provider: YAYA CASTILLO Report Released Date/Time: Oct 14, 2024 12:15 PM Reporting Lab: [place] [address] Performing Lab: [place] [phone] [facility] URINALYS IS (STL-PB) NITRITE [PRESENCE] IN URINE BY TEST STRIP Negative mg/dL 10/17 Specimen Type: URINE No comment entered. Ordering Provider: YAYA CASTILLO Report Released Date/Time: Oct 14, 2024 12:15 PM Reporting Lab: [facility] [place] [address] Performing Lab: [place] [address] [place] [phone] [facility] URINALYS IS (STL-PB) GLUCOSE [MASS/VOLU ME] IN URINE BY TEST STRIP Normalmg /dL 10/17 Specimen Type: URINE No comment entered. Ordering Provider: YAYA CASTILLO Report Released Date/Time: Oct 14, 2024 12:15 PM Reporting Lab: [facility] [place] [phone] Performing Lab: [facility] [address] [place], [place] [phone] [address] [facility] URINALYS IS (STL-PB) PROTEIN [MASS/VOLU ME] IN URINE BY TEST STRIP Negative mg/dL 10/17 Specimen Type: URINE No comment entered. Ordering Provider: YAYA CASTILLO Report Released Date/Time: Oct 14, 2024 12:15 PM Reporting Lab: [facility] [address]. [facility] [phone] Performing Lab: [facility] [address] [facility] [phone] [facility] URINALYS IS (STL-PB) URN.UROBIL INOGEN Normalmg /dL 10/17 Specimen Type: URINE No comment entered. Ordering Provider: YAYA CASTILLO Report Released Date/Time: Oct 14, 2024 12:15 PM Reporting Lab: [facility] [phone] Performing Lab: [place] [address] [facility] [address] [facility] URINALYS IS (STL-PB) HEMOGLOBIN [MASS/VOLU ME] IN URINE BY TEST STRIP Negative mg/dL 10/17 Specimen Type: URINE No comment entered. Ordering Provider: YAYA CASTILLO Report Released Date/Time: Oct 14, 2024 12:15 PM Reporting Lab: [facility] [phone] Performing Lab: [facility] [address]. [facility] [address] [facility] URINALYS IS (STL-PB) KETONES [MASS/VOLU ME] IN URINE BY TEST STRIP Negative mg/dL 10/17 Specimen Type: URINE No comment entered. Ordering Provider: YAYA CASTILLO Report Released Date/Time: Oct 14, 2024 12:15 PM Reporting Lab: [facility] [address] Performing Lab: [facility] [phone] [facility] URINALYS IS (STL-PB) URN.LEUK.E ST. Negative mg/dL 10/17 Specimen Type: URINE No comment entered. Ordering Provider: YAYA CASTILLO Report Released Date/Time: Oct 14, 2024 12:15 PM Reporting Lab: [facility] [address] Performing Lab: [facility] [address] [place] [phone] [facility] URINALYS IS (STL-PB) SPECIFIC GRAVITY OF URINE 1.004 10/17 L Specimen Type: URINE No comment entered. Ordering Provider: YAYA CASTILLO Report Released Date/Time: Oct 14, 2024 12:15 PM Reporting Lab: [place] [address] [facility] [phone] Performing Lab: [address] [phone] [facility] LIPID PANEL (STL) CHOLESTERO L [MASS/VOLU ME] IN SERUM OR PLASMA 241 mg/dL 0 - 200 10/13 H Specimen Type: PLASMA No comment entered. Ordering Provider: YAYA CASTILLO Report Released Date/Time: Oct 12, 2024 02:07 PM Reporting Lab: [place] [address] [facility] [address] Performing Lab: [address] [phone] [facility] LIPID PANEL (STL) TRIGLYCERI DE [MASS/VOLU ME] IN SERUM OR PLASMA 111 mg/dL 0 - 150 10/13 Specimen Type: PLASMA No comment entered. Ordering Provider: YAYA CASTILLO Report Released Date/Time: Oct 12, 2024 02:07 PM Reporting Lab: [facility] [phone] Performing Lab: [address] [phone] [facility] LIPID PANEL (STL) CHOLESTERO L IN LDL [MASS/VOLU ME] IN SERUM OR PLASMA BY CALCLUANNE N 171 mg/dL 10/13 Specimen Type: PLASMA No comment entered. Ordering Provider: YAYA CASTILLO Report Released Date/Time: Oct 12, 2024 02:07 PM Reporting Lab: [place] [address] [facility] [phone] Performing Lab: [address] [facility] LIPID PANEL (STL) CHOLESTERO L IN HDL [MASS/VOLU ME] IN SERUM OR PLASMA 48 mg/dL 40 10/13 Specimen Type: PLASMA No comment entered. Ordering Provider: YAYA CASTILLO Report Released Date/Time: Oct 12, 2024 02:07 PM Reporting Lab: [address] [phone] Performing Lab: [address] [facility] PROST. SPECIFIC AG.(PB-S TL) PROSTATE SPECIFIC AG [MASS/VOLU ME] IN SERUM OR PLASMA 4.406 ng/mL 0 - 4 10/13 Specimen Type: SERUM Comment: The listed sex of this patient may not be a typical indication for this test. Therefore, reference ranges or interpretiv e criteria listed may not be valid. Clinical correlation suggested. Ordering Provider: YAYA CASTILLO Report Released Date/Time: Oct 12, 2024 02:07 PM Reporting Lab: [place] [address] Performing Lab: [address] [facility] OCCULT BLOOD FIT X1 SCREEN HEMOGLOBIN .GASTROINT ESTINAL.LO WER [PRESENCE] IN STOOL BY IMMUNOASSA Y POSITIVE 09/19 Specimen Type: FECES No comment entered. Ordering Provider: YAYA CASTILLO Report Released Date/Time: Aug 31, 2024 08:29 AM Reporting Lab: [address] [phone] Performing Lab: [place] [address] [facility] [phone] [place] [address] CBOC TSH (MA-PB) THYROTROPI N [UNITS/VOL UME] IN SERUM OR PLASMA 1.667 u[IU]/mL 0.47 - 5 09/19 Specimen Type: SERUM No comment entered. Ordering Provider: YAYA CASTILLO Report Released Date/Time: Aug 31, 2024 08:28 AM Reporting Lab: [facility] [address] [place] [phone] Performing Lab: [facility] [address] [place] [phone] [facility] COMPREHE NSIVE METABOLI C PANEL CREATININE [MASS/VOLU ME] IN SERUM OR PLASMA 1.01 mg/dL 0.7 - 1.3 09/19 Specimen Type: PLASMA Comment: No hemolysis noted. Ordering Provider: YAYA CASTILLO Report Released Date/Time: Aug 31, 2024 08:28 AM Reporting Lab: [address] [phone] Performing Lab: [facility] [address] [place] [phone] [facility] COMPREHE NSIVE METABOLI C PANEL UREA NITROGEN [MASS/VOLU ME] IN SERUM OR PLASMA 7.9 mg/dL 9.0 - 25.0 09/19 L Specimen Type: PLASMA Comment: No hemolysis noted. Ordering Provider: YAYA CASTILLO Report Released Date/Time: Aug 31, 2024 08:28 AM Reporting Lab: [address] [phone] Performing Lab: [facility] [address] [facility] [address] [facility] COMPREHE NSIVE METABOLI C PANEL GLUCOSE [MASS/VOLU ME] IN SERUM OR PLASMA 105 mg/dL 72 - 99 09/19 H Specimen Type: PLASMA Comment: No hemolysis noted. Ordering Provider: YAYA CASTILLO Report Released Date/Time: Aug 31, 2024 08:28 AM Reporting Lab: [facility] [address] [facility] [address] Performing Lab: [facility] [address] [place] [phone] [facility] COMPREHE NSIVE METABOLI C PANEL SODIUM [MOLES/VOL UME] IN SERUM OR PLASMA 137 meq/L 136 - 145 09/19 Specimen Type: PLASMA Comment: No hemolysis noted. Ordering Provider: YAYA CASTILLO Report Released Date/Time: Aug 31, 2024 08:28 AM Reporting Lab: [facility] [phone] Performing Lab: [facility] [address] [facility] [address] [facility] COMPREHE NSIVE METABOLI C PANEL POTASSIUM [MOLES/VOL UME] IN SERUM OR PLASMA 4.1 meq/L 3.5 - 5 09/19 Specimen Type: PLASMA Comment: No hemolysis noted. Ordering Provider: YAYA CASTILLO Report Released Date/Time: Aug 31, 2024 08:28 AM Reporting Lab: [facility] [address] [place] [phone] Performing Lab: [facility] [address] [facility] [phone] [facility] COMPREHE NSIVE METABOLI C PANEL CHLORIDE [MOLES/VOL UME] IN SERUM OR PLASMA 103 meq/L 98 - 107 09/19 Specimen Type: PLASMA Comment: No hemolysis noted. Ordering Provider: YAYA CASTILLO Report Released Date/Time: Aug 31, 2024 08:28 AM Reporting Lab: [facility] [address] [place] [phone] Performing Lab: [facility] [address] [place] [phone] [facility] COMPREHE NSIVE METABOLI C PANEL CARBON DIOXIDE, TOTAL [MOLES/VOL UME] IN SERUM OR PLASMA 25 meq/L 22 - 31 09/19 Specimen Type: PLASMA Comment: No hemolysis noted. Ordering Provider: YAYA CASTILLO Report Released Date/Time: Aug 31, 2024 08:28 AM Reporting Lab: [facility] [address] [facility] [address] Performing Lab: [facility] [address] [facility] [address] [facility] COMPREHE NSIVE METABOLI C PANEL CALCIUM [MASS/VOLU ME] IN SERUM OR PLASMA 9.4 mg/dL 8.4 - 10.4 09/19 Specimen Type: PLASMA Comment: No hemolysis noted. Ordering Provider: YAYA CASTILLO Report Released Date/Time: Aug 31, 2024 08:28 AM Reporting Lab: [place] [address] [facility] [address] Performing Lab: [place] [address] [facility] [address] [facility] COMPREHE NSIVE METABOLI C PANEL PROTEIN [MASS/VOLU ME] IN SERUM OR PLASMA 7.3 g/dL 6 - 8.6 09/19 Specimen Type: PLASMA Comment: No hemolysis noted. Ordering Provider: YAYA CASTILLO Report Released Date/Time: Aug 31, 2024 08:28 AM Reporting Lab: [place] [address] [facility] [address] Performing Lab: [place] [address] [facility] [address] [facility] COMPREHE NSIVE METABOLI C PANEL ALBUMIN [MASS/VOLU ME] IN SERUM OR PLASMA 4.2 g/dL 3.4 - 5 09/19 Specimen Type: PLASMA Comment: No hemolysis noted. Ordering Provider: YAYA CASTILLO Report Released Date/Time: Aug 31, 2024 08:28 AM Reporting Lab: [facility] [address] [place] [phone] Performing Lab: [address] [phone] [facility] COMPREHE NSIVE METABOLI C PANEL BILIRUBIN. TOTAL [MASS/VOLU ME] IN SERUM OR PLASMA 0.7 mg/dL 0.2 - 1.2 09/19 Specimen Type: PLASMA Comment: No hemolysis noted. Ordering Provider: YAYA CASTILLO Report Released Date/Time: Aug 31, 2024 08:28 AM Reporting Lab: [facility] [address] [facility] [address] Performing Lab: [place] [address] [facility] [phone] [facility] COMPREHE NSIVE METABOLI C PANEL ALKALINE PHOSPHATAS E [ENZYMATIC ACTIVITY/V OLUME] IN SERUM OR PLASMA 69 U/L 40 - 150 09/19 Specimen Type: PLASMA Comment: No hemolysis noted. Ordering Provider: YAYA CASTILLO Report Released Date/Time: Aug 31, 2024 08:28 AM Reporting Lab: [place] [address] [facility] [phone] Performing Lab: [address] [phone] [place] [address] [facility]OC COMPREHE NSIVE METABOLI C PANEL ASPARTATE AMINOTRANS FERASE [ENZYMATIC ACTIVITY/V OLUME] IN SERUM OR PLASMA 33 U/L 5 - 34 09/19 Specimen Type: PLASMA Comment: No hemolysis noted. Ordering Provider: YAYA CASTILLO Report Released Date/Time: Aug 31, 2024 08:28 AM Reporting Lab: [address] [phone] Performing Lab: [place] [address] [facility] [phone] [facility] COMPREHE NSIVE METABOLI C PANEL ALANINE AMINOTRANS FERASE [ENZYMATIC ACTIVITY/V OLUME] IN SERUM OR PLASMA 16 U/L 8 - 40 09/19 Specimen Type: PLASMA Comment: No hemolysis noted. Ordering Provider: YAYA CASTILLO Report Released Date/Time: Aug 31, 2024 08:28 AM Reporting Lab: [facility] [address] [place] [phone] Performing Lab: [place] [address] [facility] [id number] [facility] COMPREHE NSIVE METABOLI C PANEL GLOMERULAR FILTRATION RATE/1.73 SQ M.PREDICTE D [VOLUME RATE/AREA] IN SERUM, PLASMA OR BLOOD BY CREATININE -BASED FORMULA (CKD-EPI 2020) 81.5 60 12/16 /2024 Specimen Type: PLASMA Comment: No hemolysis noted. Ordering Provider: YAYA CASTILLO Report Released Date/Time: Aug 31, 2024 08:28 AM Reporting Lab: [facility] [address] [place] [phone] Performing Lab: [address] [address] [facility] CBC LEUKOCYTES [#/VOLUME] IN BLOOD BY AUTOMATED COUNT 5.2 10*3/uL 3.6 - 11.2 09/19 Specimen Type: BLOOD No comment entered. Ordering Provider: YAYA CASTILLO Report Released Date/Time: Aug 31, 2024 08:28 AM Reporting Lab: [address] [address] Performing Lab: [address] [phone] [place] [address] [facility] CBC ERYTHROCYT ES [#/VOLUME] IN BLOOD BY AUTOMATED COUNT 5.01 10*6/uL 4.10 - 5.70 09/19 Specimen Type: BLOOD No comment entered. Ordering Provider: YAYA CASTILLO Report Released Date/Time: Aug 31, 2024 08:28 AM Reporting Lab: [facility] [address] [place] [phone] Performing Lab: [address] [phone] [place] [address] [facility] CBC HEMOGLOBIN [MASS/VOLU ME] IN BLOOD 15.2 g/dL 13.1 - 16.8 09/19 Specimen Type: BLOOD No comment entered. Ordering Provider: YAYA CASTILLO Report Released Date/Time: Aug 31, 2024 08:28 AM Reporting Lab: [address] [address] Performing Lab: [address] [phone] [place] [address] [facility] CBC HEMATOCRIT [VOLUME FRACTION] OF BLOOD 44.5 38.2 - 48.4 09/19 Specimen Type: BLOOD No comment entered. Ordering Provider: YAYA CASTILLO Report Released Date/Time: Aug 31, 2024 08:28 AM Reporting Lab: [place] [address] Performing Lab: [facility] [address] [place] [phone] [facility] CBC MCV [ENTITIC VOLUME] BY AUTOMATED COUNT 88.8 fL 80.0 - 100.0 09/19 Specimen Type: BLOOD No comment entered. Ordering Provider: YAYA ACSTILLO Report Released Date/Time: Aug 31, 2024 08:28 AM Reporting Lab: [place] [address] Performing Lab: [address] [facility] CBC MCH [ENTITIC MASS] BY AUTOMATED COUNT 30.3 pg 27.0 - 34.0 09/19 Specimen Type: BLOOD No comment entered. Ordering Provider: YAYA CASTILLO Report Released Date/Time: Aug 31, 2024 08:28 AM Reporting Lab: [facility] [address] [place] [address] Performing Lab: [address] [facility] CBC MCHC [MASS/VOLU ME] BY AUTOMATED COUNT 34.2 g/dL 33.0 - 36.0 09/19 Specimen Type: BLOOD No comment entered. Ordering Provider: YAYA CASTILLO Report Released Date/Time: Aug 31, 2024 08:28 AM Reporting Lab: [facility] [address] [place] [address] Performing Lab: [address] [facility] CBC PLATELETS [#/VOLUME] IN BLOOD BY AUTOMATED COUNT 247 10*3/uL 150 - 400 09/19 Specimen Type: BLOOD No comment entered. Ordering Provider: YAYA CASTILLO Report Released Date/Time: Aug 31, 2024 08:28 AM Reporting Lab: [facility] [address] [place] [phone] Performing Lab: [facility] [address] [place] [phone] [place] [address] [facility]OC CBC PLATELET MEAN VOLUME [ENTITIC VOLUME] IN BLOOD BY AUTOMATED COUNT 10.0 fL 7.5 - 11.2 09/19 Specimen Type: BLOOD No comment entered. Ordering Provider: YAYA CASTILLO Report Released Date/Time: Aug 31, 2024 08:28 AM Reporting Lab: [facility] [address] [place] [phone] Performing Lab: [address] [facility] CBC ERYTHROCYT E DISTRIBUTI ON WIDTH [RATIO] BY AUTOMATED COUNT 12.1 11.8 - 15.1 09/19 Specimen Type: BLOOD No comment entered. Ordering Provider: YAYA CASTILLO Report Released Date/Time: Aug 31, 2024 08:28 AM Reporting Lab: [facility] [address] [place] [phone] Performing Lab: [facility] [address] [place], [place] [phone] [place] [address] [facility]OC CBC LYMPHOCYTE S/100 LEUKOCYTES IN BLOOD BY AUTOMATED COUNT 36 09/19 Specimen Type: BLOOD No comment entered. Ordering Provider: YAYA CASTILLO Report Released Date/Time: Aug 31, 2024 08:28 AM Reporting Lab: [facility] [address] [place] [phone] Performing Lab: [facility] [address] [place] [address] [phone] [facility] CBC MONOCYTES/ 100 LEUKOCYTES IN BLOOD BY AUTOMATED COUNT 7 09/19 Specimen Type: BLOOD No comment entered. Ordering Provider: YAYA CASTILLO Report Released Date/Time: Aug 31, 2024 08:28 AM Reporting Lab: [facility] [address] [place], [place] [phone] Performing Lab: [facility] [address] [facility] [address] [facility] CBC NEUTROPHIL S/100 LEUKOCYTES IN BLOOD BY AUTOMATED COUNT 55 09/19 Specimen Type: BLOOD No comment entered. Ordering Provider: YAYA CASTILLO Report Released Date/Time: Aug 31, 2024 08:28 AM Reporting Lab: [facility] [address] [facility] [phone] Performing Lab: [facility] [address] [facility] [address] [facility] CBC EOSINOPHIL S/100 LEUKOCYTES IN BLOOD BY AUTOMATED COUNT 1 09/19 Specimen Type: BLOOD No comment entered. Ordering Provider: YAYA CASTILLO Report Released Date/Time: Aug 31, 2024 08:28 AM Reporting Lab: [address] [phone] Performing Lab: [place] [address] [facility] [address] [facility] CBC BASOPHILS/ 100 LEUKOCYTES IN BLOOD BY AUTOMATED COUNT 0 09/19 Specimen Type: BLOOD No comment entered. Ordering Provider: YAYA CASTILLO Report Released Date/Time: Aug 31, 2024 08:28 AM Reporting Lab: [place] [address] [facility] [address] Performing Lab: [address] [phone] [facility] CBC LYMPHOCYTE S [#/VOLUME] IN BLOOD BY AUTOMATED COUNT 1.88 10*3/uL 0.77 - 4.50 09/19 Specimen Type: BLOOD No comment entered. Ordering Provider: YAYA CASTILLO Report Released Date/Time: Aug 31, 2024 08:28 AM Reporting Lab: [address] [address] Performing Lab: [address] [address] [facility] CBC MONOCYTES [#/VOLUME] IN BLOOD BY AUTOMATED COUNT 0.37 10*3/uL 0.19 - 0.80 09/19 Specimen Type: BLOOD No comment entered. Ordering Provider: YAYA CASTILLO Report Released Date/Time: Aug 31, 2024 08:28 AM Reporting Lab: [address] [address] Performing Lab: [address] [phone] [place] [address] [facility] CBC NEUTROPHIL S [#/VOLUME] IN BLOOD BY AUTOMATED COUNT 2.88 10*3/uL 2.10 - 8.00 09/19 Specimen Type: BLOOD No comment entered. Ordering Provider: YAYA CASTILLO Report Released Date/Time: Aug 31, 2024 08:28 AM Reporting Lab: [place] [phone] Performing Lab: [address] [phone] [place] [address] [facility] CBC EOSINOPHIL S [#/VOLUME] IN BLOOD BY AUTOMATED COUNT 0.05 10*3/uL 0.00 - 0.60 09/19 Specimen Type: BLOOD No comment entered. Ordering Provider: YAYA CASTILLO Report Released Date/Time: Aug 31, 2024 08:28 AM Reporting Lab: [address] [phone] Performing Lab: [address] [phone] [facility] CBC BASOPHILS [#/VOLUME] IN BLOOD BY AUTOMATED COUNT 0.02 10*3/uL 0.00 - 0.20 09/19 Specimen Type: BLOOD No comment entered. Ordering Provider: YAYA CASTILLO Report Released Date/Time: Aug 31, 2024 08:28 AM Reporting Lab: [address] [address] Performing Lab: [address] [phone] [facility] CELIAC DISEASE PANEL (STL-MRN ) IGA [MASS/VOLU ME] IN SERUM OR PLASMA 168 mg/dL 70 - 320 05/31 Specimen Type: SERUM Comment: No serological evidence of celiac disease. tTG IgA may normalize in individuals with celiac disease who maintain a gluten-free diet. Consider HLA DQ2 and DQ8 testing to rule out celiac disease. Celiac disease is extremely rare in the absence of DQ2 or DQ8. REFERENCE RANGE: <15.0 U/mL Value Interpretat ion <15.0 Antibody not detected > or = 15.0 Antibody detected Test Performed by [place], [address] [place], [place] Juan David Short M.D., Ph.D., Director of Laboratorie s , CLIA [id number] Ordering Provider: YAYA CASTILLO Report Released Date/Time: May 30, 2024 04:14 PM Reporting Lab: [address] [phone] Performing Lab: [facility] [id number] [place] [address] [facility] CELIAC DISEASE PANEL ([facility] ) TISSUE TRANSGLUTA MINASE IGA AB [UNITS/VOL UME] IN SERUM <1.0 05/31 Specimen Type: SERUM Comment: No serological evidence of celiac disease. tTG IgA may normalize in individuals with celiac disease who maintain a gluten-free diet. Consider HLA DQ2 and DQ8 testing to rule out celiac disease. Celiac disease is extremely rare in the absence of DQ2 or DQ8. REFERENCE RANGE: <15.0 U/mL Value Interpretat ion <15.0 Antibody not detected > or = 15.0 Antibody detected Test Performed by [place], [address] [place], [place] Juan David Short M.D., Ph.D., Director of Laboratorie s , CLIA [id number] Ordering Provider: YAYA CASTILLO Report Released Date/Time: May 30, 2024 04:14 PM Reporting Lab: [facility] [address] [facility] [address] Performing Lab: [facility] [address] [facility] Vital Signs Combined list of inpatient and outpatient Vital Signs from Department of Defense and Veterans Affairs, ranging from 12 months to all on record, depending upon the facility. Vital Sign Value Date Comments Source SYSTOLIC BLOOD PRESSURE 129 01/05/2025 09:03:57 [facility] DIASTOLIC BLOOD PRESSURE 80 01/05/2025 09:03:57 [facility] PULSE OXIMETRY 98 01/05/2025 09:03:57 S D[facility] WEIGHT 174.5 01/05/2025 09:03:57 [facility] BMI 24 kg/m2 01/05/2025 09:03:57 [facility] PAIN 0 01/05/2025 09:03:57 [facility] TEMPERATURE 98.3 01/05/2025 09:03:57 [facility] PULSE 72 01/05/2025 09:03:57 . [facility] RESPIRATION 16 01/05/2025 09:03:57 [facility] SYSTOLIC BLOOD PRESSURE 148 01/02/2025 12:44:16 [facility] DIASTOLIC BLOOD PRESSURE 88 01/02/2025 12:44:16 [facility] PULSE OXIMETRY 97 01/02/2025 12:44:16 S [place] WEIGHT 174.7 01/02/2025 12:44:16 [facility] BMI 24 kg/m2 01/02/2025 12:44:16 [facility] PAIN 0 01/02/2025 12:44:16 [facility] HEIGHT 71 01/02/2025 12:44:16 [facility] TEMPERATURE 97.6 01/02/2025 12:44:16 [facility] PULSE 65 01/02/2025 12:44:16 [facility] Isra PAYNE [facility] RESPIRATION 20 01/02/2025 12:44:16 [facility] SYSTOLIC BLOOD PRESSURE 151 11/09/2024 07:49:52 [facility] DIASTOLIC BLOOD PRESSURE 79 11/09/2024 07:49:52 [facility] PULSE OXIMETRY 98 11/09/2024 07:49:52 [facility] WEIGHT 168.1 11/09/2024 07:49:52 [facility] BMI 24 kg/m2 11/09/2024 07:49:52 [facility] Isra [facility] PAIN 0 11/09/2024 07:49:52 [facility] HEIGHT 70.5 11/09/2024 07:49:52 [facility] TEMPERATURE 97.3 11/09/2024 07:49:52 [facility] PULSE 67 11/09/2024 07:49:52 [facility] Isra [facility] RESPIRATION 18 11/09/2024 07:49:52 [facility] SYSTOLIC BLOOD PRESSURE 134 10/12/2024 13:51:56 [facility] DIASTOLIC BLOOD PRESSURE 78 10/12/2024 13:51:56 [facility] PULSE OXIMETRY 98 10/12/2024 13:51:56 [facility] WEIGHT 171 10/12/2024 13:51:56 [facility] BMI 25 kg/m2 10/12/2024 13:51:56 [facility] PAIN 0 10/12/2024 13:51:56 [facility] TEMPERATURE 97.8 10/12/2024 13:51:56 [facility] PULSE 65 10/12/2024 13:51:56 [facility] RESPIRATION 20 10/12/2024 13:51:56 [facility] SYSTOLIC BLOOD PRESSURE 147 07/06/2024 07:44:44 [facility] DIASTOLIC BLOOD PRESSURE 85 07/06/2024 07:44:44 [facility] PULSE OXIMETRY 97 07/06/2024 07:44:44 S [facility] WEIGHT 164.9 07/06/2024 07:44:44 [facility] BMI 24 kg/m2 07/06/2024 07:44:44 [facility] PAIN 0 07/06/2024 07:44:44 [facility] TEMPERATURE 98.3 07/06/2024 07:44:44 [facility] PULSE 71 07/06/2024 07:44:44 [facility] RESPIRATION 18 07/06/2024 07:44:44 [facility] Encounters Combined list of: 1) Encounters from Department of [facility] facilities going backup to the last 18 months, not all [place] inpatient encounters are included; 2) Encounters from the Department of [facility] facilities going backup to 280 months. Location Location Details Encounter Type Encounter Number Reason For Visit Attending Provider ADM Date DC Date Status Disposition Source [facility] Outpatient Encounter [id number] 04/13 [facility] OFFICE O/P NEW LOW 30 MIN [id number] Diagnos is: ICD-10- CM Z00.00 Encntr for general adult medical exam w/o abnorma l finding s JONATHANT AYSERA L 04/15 [facility] PSYTX W PT 30 MINUTES [id number] Diagnos is: ICD-10- CM F41.1 General ized anxiety disorde Isidoro Pollack 04/15 [facility] FEE [id number] Diagnos is: ICD-10- CM Z55.9 Problem s related to educati on and literac y, unspeci fiLEIDA Hightower O 04/15 [facility] N [facility] Outpatient Encounter [id number] 04/22 [facility] Outpatient Encounter [id number] Roel CASTILLO 04/25 [facility] Outpatient Encounter [id number] Diagnos is: ICD-10- CM Z53.21 Proc/tr tmt not crd out d/t pt lv bef seen by [facility] prov REJI SINGH SA 05/05 [facility] PSYTX W PT 30 MINUTES [id number] Diagnos is: ICD-10- CM F43.12 Post-tr aumatic stress disorde r, chronic Isidoro MARS 05/27 [facility] Outpatient Encounter [id number] Diagnos is: ICD-10- CM F32.A Depress ion, unspeci sabine Roel CASTILLO 05/30 [facility] Outpatient Encounter [id number] Diagnos is: ICD-10- CM R76.0 Raised antibod y titer TOTSHELLY GARCÍA ANDRAENAILA A 06/01 [facility] PSYTX W PT 30 MINUTES [id number] Diagnos is: ICD-10- CM F33.0 Major depress sotero disorde r, recurre nt, mild Isidoro MARS ARVTiffani 06/17 [facility] Outpatient Encounter [id number] 06/22 [facility] PROGRAM INTAKE ASSESSMENT [id number] Diagnos is: ICD-10- CM J44.9 Chronic obstruc tive pulmona ry disease , unspeci filinnette AVILAMILE DAFNE Vásquez 07/06 [facility] OFF/OP CNSLTJ NEW/EST MOD 40 [id number] Diagnos is: ICD-10- CM R91.8 Other nonspec ific abnorma l finding of lung field MIKAYLA,KENDALL MEADE T 07/06 [facility] Outpatient Encounter [id number] 08/16 [facility] Outpatient Encounter [id number] KWABENA LIZ NDRELL 08/16 [facility] Outpatient Encounter [id number] Isidoro MARS 08/16 [facility] Outpatient Encounter [id number] Isidoro MARS 08/16 [facility] Outpatient Encounter [id number] KWABENA LIZ NDOLYN 08/29 [facility] Outpatient Encounter [id number] Diagnos is: ICD-10- CM F32.A Depress ion, unspeci Roel Gooden 08/31 [facility] Outpatient Encounter [id number] OVI GRACIA Y 09/15 [facility] N [facility] Outpatient Encounter [id number] KWABENA LIZN 09/15 [facility] N [facility] Outpatient Encounter [id number] 10/03 [facility] Outpatient Encounter [id number] KWABENA LIZ NDOLYN 10/03 [facility] Outpatient Encounter [id number] 10/10 [facility] Outpatient Encounter [id number] Roel CASTILLO 10/10 [facility] Outpatient Encounter [id number] KWABENA LIZ NDLUISANAN 10/10 [facility] Outpatient Encounter [id number] 10/12 [facility] OFFICE O/P EST LOW 20 MIN [id number] Diagnos is: ICD-10- CM I10 Essenti al (primar y) hyperte nsRoel Dewey 10/12 [facility] ADMN SARSCOV2 VACC 1 DOSE [id number] Diagnos is: ICD-10- CM Z23 Encount er for immuniz JAX Kevin E 10/13 [facility] PSYTX W PT 30 MINUTES [id number] Diagnos is: ICD-10- CM F33.1 Major depress sotero disorde r, recurre nt, Isidoro Romero ARVA 10/31 [facility] OFF/OP CNSLTJ NEW/EST LOW 30 [id number] Diagnos is: ICD-10- CM R19.5 Other fecal abnorma lities Isidoro HEWITT JESSICA 11/03 [facility] OFFICE O/P NEW LOW 30 MIN [id number] Diagnos is: ICD-10- CM R97.21 Rising PSA fol treatme nt for maligna nt neoplas m of prostat e GAMBOA ,CHRISTIANO 11/09 [facility] SYNCH AUDIO-ONLY EST LOW 20 [id number] Diagnos is: ICD-10- CM R97.20 Elevate d prostat e specifi c antigen [PSA] CHRISTIANO GAMBOA 11/14 [facility] Outpatient Encounter [id number] 11/28 [facility] Outpatient Encounter [id number] KWABENA LIZ 11/30 [facility] PSYTX W PT 30 MINUTES [id number] Diagnos is: ICD-10- CM F33.1 Major depress sotero disorde r, recurre nt, Isidoro Romero ARVA 12/02 [facility] Outpatient Encounter [id number] 12/06 [facility] Outpatient Encounter [id number] SHELLY ADAMS 01/02 [facility] OFFICE O/P EST MOD 30 MIN [id number] Diagnos is: ICD-10- CM J44.9 Chronic obstruc tive pulmona ry disease , unspeci fied SHEELAKAIT RI 01/05 [facility] PT EDUCATION NOC INDIVID [id number] Diagnos is: ICD-10- CM Z12.2 Encntr screen for maligna nt neoplas m of respira tory organs LITO ABREU 01/11 [facility] SLEEP STUDY UNATT&RESP EFFT [id number] Diagnos is: ICD-10- CM G47.30 Sleep apnea, unspeci fied EDDIE WASSERMAN MD 01/11 [facility] PSYTX W PT 30 MINUTES [id number] Diagnos is: ICD-10- CM F33.1 Major depress sotero disorde r, recurre nt, moderat e Isidoro MARS ARVA 01/13 [facility] SLEEP STUDY UNATT&RESP EFFT [id number] Diagnos is: ICD-10- CM G47.33 Obstruc tive sleep apnea (adult) (pediat delmar) EDDIE WASSERMAN MD 01/24 [facility] POS AIRWAY PRESSURE CPAP [id number] Diagnos is: ICD-10- CM G47.33 Obstruc tive sleep apnea (adult) (pediat delmar) EDDIE WASSERMAN MD 01/[address] [facility] Outpatient Encounter [id number] 01/26 [facility] Social History Combined list of available smoking, tobacco, and other social history from Department of Defense and Veterans Affairs facilities. Social History Type Response Date Comment Sourc e Tobacco smoking status NHIS VA-TOBACCO USER EVERY DAY 04/15/2024 [facility] History of tobacco use VA-TOBACCO USE WI 30 MIN OF WAKEUP 04/15/2024 [facility] Plan of Care List of future care activities from Department of Veterans Affairs facilities. Additional future care activities may be listed in the Assessment and Plan section. Date/Time Care Activity Care Activity Detail Facili ty 02/23/2025 AMBULATORY - MEDICINE AMBULATORY - MEDICI NE [facility]
--- OUTSIDE RECORDS SUMMARY | 2025-02-02 09:39 | XMS_ITS | Encounter Summary ---
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 Date/Time Encounter Type Encounter Description Reason Provider Source Oct 12, 2024 02:00 PM OFFICE O/P EST LOW 20 MIN PRIMARY CARE/MEDICINE ICD-10-CM I10 Essential (primary) hypertension LAWRENCE CASTILLO OR L IHE Encounter Template Text not used by [facility] Assessments - Encounter Diagnoses This section includes the primary and secondary diagnoses documented for the Encounter. Date/Time Primary/Secondary Diagnosis Diagnosis Name Provider Source Oct 12, 2024 05:35 PM PRIMARY Essential (primary) hypertension GUICHO CASTILLO [facility] Oct 12, 2024 05:35 PM SECONDARY Chronic obstructive pulmonary disease, unspecified GUICHO CASTILLO [facility] Oct 12, 2024 05:35 PM SECONDARY Depression, unspecified GUICHO CASTILLO [facility] Oct 12, 2024 05:35 PM SECONDARY Gastro-esophageal reflux disease without esophagitis GUICHO CASTILLO [facility] Oct 12, 2024 05:35 PM SECONDARY Hyperlipidemia, unspecified GUICHO CASTILLO [facility] Oct 12, 2024 05:35 PM SECONDARY Male erectile dysfunction, unspecified GUICHO CASTILLO [facility] Plan of Treatment: Future Appointments (+ 6 months) and Future Tests (+/- 45 days) The Plan of Treatment section includes future care activities for the patient from all [place] [facility]. This section includes future appointments and future orders which are active, pending or scheduled. Future Appointments This section includes appointments that were scheduled to occur 6 months from the date of the Encounter, up to a maximum of 20 appointments. The data comes from all [place] treatment facilities. Appointment Date/Time Appointment Type Appointme nt Facility Name Oct 13, 2024 10:00 AM AMBULATORY - MEDICINE [facility] Oct 31, 2024 10:00 AM AMBULATORY - MEDICINE [facility] Nov 03, 2024 09:00 AM AMBULATORY - MEDICINE [facility] Nov 09, 2024 08:00 AM AMBULATORY - SURGERY [facility] Dec 02, 2024 10:00 AM AMBULATORY - MEDICINE [facility] Dec 06, 2024 09:45 AM AMBULATORY - NONE [facility] Jan 05, 2025 09:00 AM AMBULATORY - MEDICINE [facility] Jan 11, 2025 08:30 AM AMBULATORY - MEDICINE [facility] Jan 13, 2025 11:00 AM AMBULATORY - MEDICINE [facility] February 23, 2025 01:00 PM AMBULATORY - MEDICINE [facility] Lab Results: +/- 30 days of the encounter This section includes the Chemistry and Hematology Lab Results on record with [place] for the patient. Radiology Reports and Pathology Reports are provided separately, in subsequent sections. Lab Results This section contains the Chemistry/Hematology Results that were resulted 30 days before or 30 daysafter the date of the Encounter. Date/Time Source Result Type Result - Unit Interpretation Reference Range Specimen Type Comment Oct 17, 2024 10:05 AM [facility] URINALYSIS (STL-PB) URINE Specimen Type: URINE No comment entered. Ordering Provider: NITHYA CASTILLO Report Released Date/Time: Oct 14, 2024 12:15 PM Reporting Lab: [address] [address] Performing Lab: [address] [address] URINE COLOR Colorless Yellow U.BILIRUBIN Negative mg/dL Negative U.PH 7.0 5.0-8.0 APPEARANCE Clear Clear U.NITRITE Negative mg/dL Negative URN.GLUCOSE Normal mg/dL Negative URN.PROTEIN Negative mg/dL URN.UROBILINOGEN Normal mg/dL Normal URN.BLOOD Negative mg/dL Negative-Trace URN.KETONES Negative mg/dL Negative-Trac e URN.LEUK.EST. Negative mg/dL Negative-Tr mere URN.SPECIFIC GRAVITY 1.004 L Oct 13, 2024 12:00 AM [facility] LIPID PANEL (STL) PLASMA Specimen Ty pe: PLASMA No comment entered. Ordering Provider: NITHYA CASTILLO Report Released Date/Time: Oct 12, 2024 02:07 PM Reporting Lab: [address] [address] Performing Lab: [address] [address] CHOLESTEROL 241 mg/dL H 0-200 TRIGLYCERIDE 111 mg/dL 0-150 CALCULATED LDL 171 mg/dL HDL(New) 48 mg/dL >40 Oct 13, 2024 12:00 AM [facility] PROST. SPECIFIC AG.(PB-STL) SERUM Specimen Ty pe: SERUM Comment: The listed sex of this patient may not be a typical indication for this test. Therefore, reference ranges or interpretive criteria listed may not be valid. Clinical correlation suggested. Ordering Provider: NITHYA CASTILLO Report Released Date/Time: Oct 12, 2024 02:07 PM Reporting Lab: [facility] [address] [place] [phone] Performing Lab: [address] [address] PROST. SPECIFIC AG.(PB-STL) 4.406 ng/mL HH 0-4 Sep 19, 2024 11:00 AM [facility] OCCULT BLOOD FIT X1 SCREEN FECES Sp ecimen Type: FECES No comment entered. Ordering Provider: NITHYA CASTILLO Report Released Date/Time: Aug 31, 2024 08:29 AM Reporting Lab: [address] [address] Performing Lab: [address] [address] OCCULT BLOOD (FIT) #1 OF 1 POSITIVE HH Nega tive Sep 19, 2024 09:52 AM [facility] TSH (MA-PB) SERUM Specimen Type: SERUM No comment entered. Ordering Provider: NITHYA CASTILLO Report Released Date/Time: Aug 31, 2024 08:28 AM Reporting Lab: [address] [address] Performing Lab: [address] [address] TSH 1.667 u[IU]/mL 0.47-5 Sep 19, 2024 09:52 AM [facility] COMPREHENSIVE METABOLIC PANEL PLASMA Specimen Type: PLASMA Comment: No hemolysis noted. Ordering Provider: NITHYA CASTILLO Report Released Date/Time: Aug 31, 2024 08:28 AM Reporting Lab: [address] [address] Performing Lab: [address] [address] CREATININE 1.01 mg/dL 0.7-1.3 UREA NITROGEN 7.9 mg/dL L 9.0-25.0 GLUCOSE 105 mg/dL H 72-99 SODIUM 137 meq/L 136-145 POTASSIUM 4.1 meq/L 3.5-5 CHLORIDE 103 meq/L 98-107 CARBON DIOXIDE 25 meq/L 22-31 CALCIUM 9.4 mg/dL 8.4-10.4 PROTEIN 7.3 g/dL 6-8.6 ALBUMIN 4.2 g/dL 3.4-5 TOTAL BILIRUBIN 0.7 mg/dL 0.2-1.2 ALKALINE PHOSPHATASE 69 U/L 40-150 AST/SGOT 33 U/L 5-34 ALT/SGPT 16 U/L 8-40 EGFR (CKD-EPI 2020) 81.5 >60 Sep 19, 2024 09:52 AM [facility] CBC BLOOD Specimen Type: BLOOD No comment entered. Ordering Provider: NITHYA CASTILLO Report Released Date/Time: Aug 31, 2024 08:28 AM Reporting Lab: [facility] [address] [facility] [address] Performing Lab: [facility] [address] [facility] [address] WBC 5.2 10*3/uL 3.6-11.2 RBC 5.01 10*6/uL 4.10-5.70 HGB 15.2 g/dL 13.1-16.8 HCT 44.5 38.2-48.4 MCV 88.8 fL 80.0-100.0 MCH 30.3 pg 27.0-34.0 MCHC 34.2 g/dL 33.0-36.0 PLT 247 10*3/uL 150-400 MPV 10.0 fL 7.5-11.2 RDW 12.1 11.8-15.1 LYMPHOCYTES, AUTO % 36 MONOCYTES, AUTO % 7 NEUTROPHILS, AUTO % 55 EOSINOPHILS, AUTO % 1 BASOPHILS, AUTO % 0 LYMPHOCYTES, ABSOLUTE 1.88 10*3/uL 0.77- 4.50 MONOCYTES, ABSOLUTE 0.37 10*3/uL 0.19-0. 80 NEUTROPHILS, ABSOLUTE 2.88 10*3/uL 2.10- 8.00 EOSINOPHILS, ABSOLUTE 0.05 10*3/uL 0.00- 0.60 BASOPHILS, ABSOLUTE 0.02 10*3/uL 0.00-0. 20 Vital Signs: All taken on the encounter date This section contains inpatient and outpatient Vital Signs collected on the date of the Encounter. Date/Time Temperature Pulse Blood Pressure Respiratory Rate SP02 Pain Height Weight Body Mass Index Source Oct 12, 2024 01:51 PM 97.8 65 134/78 20 98 0 171 25 [facility] Social History: Smoking Status (Most current) and Tobacco Use (All prior to encounter date) This section includes the most current, and the historical, smoking and tobacco- related health factors from the [place] facility where the Encounter took place. Current Smoking Status This section includes the most current smoking, or tobacco-related health factor, from the [place] facility where the Encounter took place. Date/Time Current Smoking Status Comment Facil ity Apr 15, 2024 08:30 AM VA-TOBACCO USER EVERY DAY [facility] Tobacco Use History This section includes a history of the smoking, or tobacco-related health factors, that were collected on or before the date of the Encounter. The data comes from the [place] facility where the Encounter took place. Date/Time Smoking Status/Tobacco Use Comment F acility Apr 15, 2024 08:30 AM VA-TOBACCO USE ADVICE [facility] Apr 15, 2024 08:30 AM VA-TOBACCO USE IS CONSULTANT NO [facility] Apr 15, 2024 08:30 AM VA-TOBACCO USE MED NO [facility] Apr 15, 2024 08:30 AM VA-TOBACCO USE WI 30 MIN OF WAKE UP [facility] Apr 15, 2024 08:30 AM VA-TOBACCO USER EVERY DAY [facility] Pathology Reports: +/- 30 days of the encounter Pathology Reports For cases when an order for pathology services may have been completed prior to the date of the Encounter, the report list includes the Pathology Reports that were completed up to 30 days before dateof the Encounter. For cases when an order for pathology services may have been completed after the date of the Encounter, the report list also includes the Pathology Reports that were completed up to30 days after date of the Encounter. The data comes from all [place] treatment facilities. Date/Time Pathology Report Provider Source Oct 13, 2024 12:00 AM LR MICROBIOLOGY RE PORT: Accession [UID]: [id number] [[id number]] Received: Oct 13, 2024@17:49 Collection sample: STOOL Collection date: Oct 13, 2024 Site/Specimen: FECES Provider: NITHYA CASTILLO Test(s) ordered: C&S STOOL..................... completed: Oct 16, 2024 14:31 * BACTERIOLOGY FINAL REPORT => Oct 16, 2024 14:55 TECH CODE: [id number] Bacteriology Remark(s): 10.14.24 KAA 10/15/24 CMG CULTURE SHOWS HEAVY GROWTH USUAL ENTERIC JAY 10/16/24 CMG CULTURE GREW USUAL ENTERIC JAY- NO ENTERIC PATHOGENS ISOLATED. NO Aeromonas, Campylobacter, E.coli 0157, Plesiomonas, Salmonella, Shigella, or Yersinia isolated. =--=--=--=--=--=--=--=--=--=--=-- =--=--=--=--=--=--=--=--=--=--=-- =--=--=--=-- Performing Laboratory: Bacteriology Report [facility] [address] [place] [address] CLIA# [id number] [address] [address] PARMJIT PRINCE [facility] Encounter Notes: All associated encounter notes This section contains the clinical notes associated to the Encounter. Date/Time Encounter Note(s) Provider Source Jan 16, 2025 10:35 AM PHYSICIAN LETTERS: LOCAL TITLE: TEST RESULT GENERAL LETTER STL STANDARD TITLE: PHYSICIAN LETTERS DATE OF NOTE: JAN 16, 2025@10:35 ENTRY DATE: JAN 16, 2025@10:35:49 AUTHOR: NITHYA CASTILLO EXP COSIGNER: URGENCY: STATUS: COMPLETED [facility] [address] [place] [address] JAN 16, 2025 JITENDRA LARRY [address] [place] [address] Dear Jitendra Larry, I would like to update you on your recent test results. LIPID PROFILE - High cholesterol and triglycerides (lipids) are risk factors for heart disease. Your cholesterol should fall between 140 and 200, and your triglycerides levels should be less than or equal to 150. HDL is the good cholesterol and should ideally be greater than 40. LDL is the bad cholesterol and optimal levels should be less than 100 (near optimal is between 100 and 129). TRIGLYCERIDE 94 mg/dL 01/13/2025 00:00 CHOLESTEROL 160 mg/dL 01/13/2025 00:00 HDL(New) 48 mg/dL 01/13/2025 00:00 CALCULATED LDL 93 mg/dL 01/13/2025 00:00 These readings are within normal limits. Your cholesterol is at an optimal level. Please continue to take atorvastatin as prescribed in addition to following a heart healthy lifestyle. PLAN Please continue your treatment as we discussed during your visit. If you have any questions please call your community case manager. I look forward to seeing you at your next clinic appointment. Thank you for choosing the [facility] for your healthcare. FUTURE APPOINTMENTS: 02/23/2025 13:00 [facility]IE-NOCO PCMHI BH PSO IND 03/08/2025 14:30 VANGIE-UROLOGY 1 04/13/2025 14:00 [facility]IE-NOCO PACT 7 PCP 01/09/2026 08:00 VANGIE-PULM PA 1 01/09/2026 09:00 VANGIE-PFT-VANGIE Sincerely, NITHYA CASTILLO, MSN, AGNP-C NURSE PRACTITIONER JITENDRA LARRY [facility] Oct 18, 2024 08:04 AM PHYSICIAN LETTERS: LOCAL TITLE: TEST RESULT GENERAL LETTER ST STANDARD TITLE: PHYSICIAN LETTERS DATE OF NOTE: OCT 18, 2024@08:04 ENTRY DATE: OCT 18, 2024@08:04:53 AUTHOR: NITHYA CASTILLO EXP COSIGNER: URGENCY: STATUS: COMPLETED [facility] [address] [place] [address] OCT 18, 2024 JITENDRA LARRY [address], [place] [address] Dear Jitendra Larry, I would like to update you on your recent test results. URINALYSIS - A urinalysis (or UA ) is an array of tests performed on urine and one of the most common methods of medical diagnosis. URINALYSIS URINE COLOR Colorless 10/17/2024 10:05 APPEARANCE Clear 10/17/2024 10:05 U.PH 7.0 10/17/2024 10:05 U.BILIRUBIN Negative mg/dL 10/17/2024 10:05 U.NITRITE Negative mg/dL 10/17/2024 10:05 These readings are within normal limits. PLAN Please continue your treatment as we discussed during your visit. If you have any questions please call your community case manager. I look forward to seeing you at your next clinic appointment. Thank you for choosing the [facility] for your healthcare. FUTURE APPOINTMENTS: 10/31/2024 10:00 NAMRATA PC BRANDON NLENORA [facility] 11/03/2024 09:00 VANGIE-VVC GI PRE-ENDO 01/05/2025 09:00 VANGIE-PULM PA 1 04/13/2025 14:00 [facility]IE-NOCO PACT 7 PCP Sincerely, NITHYA CASTILLO, MSN, AGNP-C NURSE PRACTITIONER JITENDRA LARRY [facility] Oct 14, 2024 02:57 PM PHYSICIAN LETTERS: LOCAL TITLE: TEST RESULT GENERAL LETTER STL STANDARD TITLE: PHYSICIAN LETTERS DATE OF NOTE: OCT 14, 2024@14:57 ENTRY DATE: OCT 14, 2024@14:57:39 AUTHOR: NITHYA CASTILLO EXP COSIGNER: URGENCY: STATUS: COMPLETED [facility] [address] [place] [address] OCT 14, 2024 JITENDRA LARRY [address], [place] [address] Dear Jitendra Larry, I would like to update you on your recent test results. OTHER TEST RESULTS Collection date: Oct 13, 2024 Test(s) ordered: C&S STOOL CULTURE SHOWS HEAVY GROWTH USUAL ENTERIC JAY NO Aeromonas, Campylobacter, E.coli 0157, Plesiomonas, Salmonella, Shigella, or Yersinia isolated. Your stool culture was negative for infection. PLAN Please continue your treatment as we discussed during your visit. Would advise you keep your scheduled appointment with the enrollment management coordinator for further evaluation of your diarrhea and blood in stool. If you have any questions please call your community case manager. I look forward to seeing you at your next clinic appointment. Thank you for choosing the [facility] for your healthcare. FUTURE APPOINTMENTS: 10/31/2024 10:00 [facility]-BH [facility] 11/03/2024 09:00 VANGIE-VVC GI PRE-ENDO 01/05/2025 09:00 VANGIE-PULM PA 1 04/13/2025 14:00 VANGIE-NOCO PACT 7 PCP Sincerely, NITHYA CASTILLO, MSN, AGNP-C NURSE PRACTITIONER JITENDRA LARRY [facility] Oct 14, 2024 12:20 PM PHYSICIAN LETTERS: LOCAL TITLE: TEST RESULT GENERAL LETTER STL STANDARD TITLE: PHYSICIAN LETTERS DATE OF NOTE: OCT 14, 2024@12:20 ENTRY DATE: OCT 14, 2024@07:47:56 AUTHOR: NITHYA CASTILLO EXP COSIGNER: URGENCY: STATUS: COMPLETED [facility] [address] [place] [address] OCT 14, 2024 JITENDRA LARRY [address], [place] [address] Dear Jitendra Larry, I would like to update you on your recent test results. LIPID PROFILE - High cholesterol and triglycerides (lipids) are risk factors for heart disease. Your cholesterol should fall between 140 and 200, and your triglycerides levels should be less than or equal to 150. HDL is the good cholesterol and should ideally be greater than 40. LDL is the bad cholesterol and optimal levels should be less than 100 (near optimal is between 100 and 129). TRIGLYCERIDE 111 mg/dL 10/13/2024 CHOLESTEROL 241 H mg/dL 10/13/2024 HDL(New) 48 mg/dL 10/13/2024 CALCULATED LDL 171 mg/dL 10/13/2024 These results are abnormal. Your bad cholesterol (ldl) and total cholesterol levels are elevated putting you at increased risk for cardiovascular events in the future. To reduce this risk, we recommend starting a cholesterol medication called atorvastatin. Your prescription was ordered and will arrive in the mail soon. Please review the label for dosing instructions. We will plan to repeat your labs in 3 months. In addition to your medication, you can improve these values by changing your diet and exercise regimen. Please review the following recommendations: -Incorporate 30-minutes of exercise with walking 5 days per week. Increasing your physical activity can help with weight management and improve your cholesterol levels. -Carefully review nutrition labels. Decrease intake of saturated fats or trans-fats. Monitor your salt intake. -Reduce your intake of sugars such as cake or candy. Additional hidden sugars are found foods such as pastries, breads, and pasta. Monitor your intake of these items as well and try not to consume on a daily basis. -Increase your intake of fresh or frozen fruits and vegetables which is preferred over canned or processed items. Canned foods have high amounts of sugar and salt. -Low fat dairy products are encouraged. -Leaner meats such as chicken or fish can have less fat that beef or pork. PSA - Prostate-specific antigen is a protein produced by cells of the prostate gland. The PSA test measures the level of PSA in the blood. PSA PROST. SPECIFIC AG.(PB-STL) 4.406 H* ng/mL 10/13/2024 00:00 These results are abnormal. Your PSA level is higher than your previous value. I ordered a urinalysis to rule out a urinary tract infection as a possible contributor to this elevation in your lab work. Please come into the clinic to complete the urinalysis as soon as possible. If your urinalysis is normal, we discussed referring you to a urologist for further evaluation. PLAN I have reviewed your test results and we need to adjust your medication as follows: Start atorvastatin 20 mg/day for treatment of high cholesterol. Please remember that the same medication may have two different names. We ask that you compare your bottle with your paperwork before taking the medication. FUTURE APPOINTMENTS: 10/31/2024 10:00 [facility]IE-BH PC IND N[facility] 11/03/2024 09:00 VANGIE-VVC GI PRE-ENDO 01/05/2025 09:00 VANGIE-PULM PA 1 04/13/2025 14:00 VANGIE-NOCO PACT 7 PCP Sincerely, NITHYA CASTILLO, MSN, AGNP-C NURSE PRACTITIONER JITENDRA LARRY,NITHYA Dhaliwal [facility] Oct 12, 2024 01:54 PM NURSING NOTE: LOCAL TITLE: V15 PACT FACE TO FACE NOTE STL STANDARD TITLE: NURSING NOTE DATE OF NOTE: OCT 12, 2024@13:54 ENTRY DATE: OCT 12, 2024@13:54:09 AUTHOR: ALIRIO BRAVO COSIGNER: URGENCY: STATUS: COMPLETED Provider Visit: Patient Identifiers : Full Name Date of Reason for visit: Established Follow-Up Mode of Arrival: Ambulatory Allergy Review: Patient has answered NKA Allergy list reviewed and remains current. Recent Vital Signs: Temperature: 97.8 F [36.6 C] (10/12/2024 13:51) Pulse: 65 (10/12/2024 13:51) Respiration: 20 (10/12/2024 13:51) B/P: 134/78 (10/12/2024 13:51) Pain: 0 (10/12/2024 13:51) Wt: 171 lb [77.56 kg] (10/12/2024 13:51) Ht: 70 in [177.8 cm] (04/15/2024 08:25) BMI: 24.6 POX: 98% (10/12/2024 13:51) PERSONAL HEALTH INVENTORY Notes: No data available for PHI note titles PERSONAL HEALTH INVENTORY - MAP: 04/15/2024 Personal Health Plan [place], [place], Purpose (MAP) Happiness What matters most to you in your life right now? 's Response: staying well Would you like to discuss any personal problem, family problem, alcohol use, drug use, or a mental or emotional illness? No My [facility] ([facility]), please select appointment type: Face to face: Yes- Done Contact provided Primary Care phone number and encouraged to call if any questions or concerns. Review that after hours nurse line [phone] and emergency room are available 27/04 for patient use. Contact verbalized good understanding. No notification required for this note. /delmy/ ALIRIO BRAVO Licensed Practical Nurse Signed: 10/12/2024 13:56 ALIRIO BRAVO [facility] Oct 12, 2024 01:47 PM PRIMARY CARE NOTE: LOCAL TITLE: PRIMARY CARE PROVIDER ESTABLISHED VISIT [facility] STANDARD TITLE: PRIMARY CARE NOTE DATE OF NOTE: OCT 12, 2024@13:47 ENTRY DATE: OCT 12, 2024@13:47:13 AUTHOR: NITHYA CASTILLO COSIGNER: URGENCY: STATUS: COMPLETED PRIMARY CARE PROVIDER ESTABLISHED VISIT [facility] Has ADDENDA ESTABLISHED PATIENT [id number] REASON FOR VISIT/CHIEF COMPLAINT: follow up HPI: PM, see problem list 69 y/o male who presents to the medical clinic for his scheduled follow up visit. The purpose of the visit today is to follow up on the veterans chronic medical conditions. Denies new concerns or complaints. Last PCP visit: 08/31/2024 (phone) Community PCP: [facility] planning to transition primary care services to the [place]. HTN. Home BP readings: Not monitoring often. BP at home today was 120/74 per monitor. WHAT IS YOUR GOAL FOR TODAY? F/U chronic medical conditions SOURCE(S) OF HISTORY: -Patient, JLV PAST MEDICAL HISTORY: 1) HTN - Hypertension ([facility] [id number]) 2) COPD - Chronic Obstructive Pulmonary Disease ([facility] [id number]) 3) Erectile Dysfunction ([facility] [id number]) 4) Ex-tobacco user 5) Current drinker 6) Exposure to potentially hazardous substance ([facility] [id number]) comment: Entered automatically through [facility] Problem List documentation prog 7) Depression SURGICAL HISTORY: -Left ankle ORIF with subsequent screw removal -Right shoulder rotator cuff repair -Right ear surgery FAMILY MEDICAL HISTORY: Mother: CAD MGM: HTN, aortic valve calcification, Maternal Aunt: HTN SOCIAL HISTORY: Nicotine: former user, quit in 2016, smoked 1.5 PPD x > 30 years Alcohol: consumes 5-6 beers per week Illicit Drugs: former use, cocaine, heroin, 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 MEDICATIONS: Active Outpatient Medications (including Supplies): Active Outpatient Medications Status 1) ALBUTEROL 90MCG (CFC-F) 200D ORAL INHL INHALE 2 PUFFS ORAL ACTIVE INHALATION FOUR TIMES A DAY NEEDED SHAKE WELL. RINSE MOUTHPIECE FREQUENTLY TO PREVENT CLOGGING. Indication: FOR COPD 2) LISINOPRIL 40MG TAB TAKE ONE-HALF TABLET BY MOUTH ONCE A DAY ACTIVE Indication: FOR HIGH BLOOD PRESSURE 3) OLODATEROL/TIOTROP 2.5MCG/ACTUAT 60D INH INHALE 2 PUFFS BY ACTIVE ORAL INHALATION ONCE A DAY ADMINISTER AT SAME TIME EACH DAY Indication: FOR COPD 4) SERTRALINE HCL 100MG TAB TAKE ONE TABLET BY MOUTH EVERY ACTIVE MORNING Indication: FOR DEPRESSION MEDICATION RECONCILIATION: completed REVIEW OF SYSTEMS: See HPI for further details of positive complaints. All 10 systems reviewed and otherwise negative. PHYSICAL EXAMINATION: VITALS (most recent, as listed in the electronic record): Temperature: 97.8 F [36.6 C] (10/12/2024 13:51) BP: 134/78 (10/12/2024 13:51) Pulse: 65 (10/12/2024 13:51) Resp: 20 (10/12/2024 13:51) PulsOx: 98% (10/12/2024 13:51) Pain: 0 (10/12/2024 13:51) Weight: Measurement DT WEIGHT LB(KG)[BMI] 10/12/2024 13:51 171(77.56)[25] 07/06/2024 07:44 164.9(74.80)[24] 04/15/2024 08:25 165.3(74.98)[24] PHYSICAL EXAMINATION: General appearance: well-groomed, well-nourished, in no distress HEENT: sclera/conjunctiva clear, TMs pearly carr, nares patent no secretions or inflammation, oropharynx WNL Neck: supple, no lymphadenopathy or thyromegaly Cardiovascular: RRR, no murmur, no gallop Respiratory: CTA, no wheezes, crackles or rhonchi ABD/GI: normal contour, bs + in all quads, non-tender M/S: normal gait and posture Extremities: radial/PT pulses 2+, warm, well-perfused Psych: normal affect Neuro: Alert and oriented x 3 Skin: warm, dry, normal color and texture, skin intact DATA REVIEW: HGA1C 5.4 % 04/15/2024 10:10 Lipid Panel: TRIGLYCERIDE 97 mg/dL 04/15/2024 10:10 CHOLESTEROL 218 H mg/dL 04/15/2024 10:10 HDL(New) 59 mg/dL 04/15/2024 10:10 CALCULATED LDL 140 mg/dL 04/15/2024 10:10 CMP: SODIUM 137 mEq/L 09/19/2024 09:52 POTASSIUM 4.1 mEq/L 09/19/2024 09:52 CHLORIDE 103 mEq/L 09/19/2024 09:52 UREA NITROGEN 7.9 L mg/dL 09/19/2024 09:52 CREATININE 1.01 mg/dL 09/19/2024 09:52 CALCIUM 9.4 mg/dL 09/19/2024 09:52 PROTEIN 7.3 g/dL 09/19/2024 09:52 ALBUMIN 4.2 g/dL 09/19/2024 09:52 ALKALINE PHOSPHATASE 69 U/L 09/19/2024 09:52 ALT/SGPT 16 U/L 09/19/2024 09:52 AST/SGOT 33 U/L 09/19/2024 09:52 TOTAL BILIRUBIN 0.7 mg/dL 09/19/2024 09:52 CARBON DIOXIDE 25 mEq/L 09/19/2024 09:52 GLUCOSE 105 H mg/dL 09/19/2024 09:52 EGFR (CKD-EPI 2020) 81.5 09/19/2024 09:52 CBC: WBC 5.2 10*3/uL 09/19/2024 09:52 RBC 5.01 10*6/uL 09/19/2024 09:52 HGB 15.2 g/dL 09/19/2024 09:52 HCT 44.5 % 09/19/2024 09:52 MCV 88.8 fL 09/19/2024 09:52 MCH 30.3 pg 09/19/2024 09:52 MCHC 34.2 g/dL 09/19/2024 09:52 RDW 12.1 % 09/19/2024 09:52 PLT 247 10*3/uL 09/19/2024 09:52 MPV 10.0 fL 09/19/2024 09:52 NEUTROPHILS, AUTO % 55 % 09/19/2024 09:52 LYMPHOCYTES, AUTO % 36 % 09/19/2024 09:52 MONOCYTES, AUTO % 7 % 09/19/2024 09:52 EOSINOPHILS, AUTO % 1 % 09/19/2024 09:52 BASOPHILS, AUTO % 0 % 09/19/2024 09:52 NEUTROPHILS, ABSOLUTE 2.88 10*3/uL 09/19/2024 09:52 LYMPHOCYTES, ABSOLUTE 1.88 10*3/uL 09/19/2024 09:52 MONOCYTES, ABSOLUTE 0.37 10*3/uL 09/19/2024 09:52 EOSINOPHILS, ABSOLUTE 0.05 10*3/uL 09/19/2024 09:52 BASOPHILS, ABSOLUTE 0.02 10*3/uL 09/19/2024 09:52 PSA: PROST. SPECIFIC AG.(PB-STL) 4.123 H* ng/mL 04/15/2024 10:10 TSH: TSH 1.667 uIU/mL 09/19/2024 09:52 Micral: CREATuF: 15.1 (04/15/24 10:10) M/CREAT: comment (04/15/24 10:10) MICRAL: <5.0 (04/15/24 10:10) ASSESSMENT/PLAN: # HTN: - Blood pressure controlled. Continue lisinopril 20mg/day. Trend renal function # HLD: - Vet declined statin in 04/2024. Requested to trial lifestyle modifications alone. Repeat lipid panel. Will make further recommendations based on repeat results # COPD: - Mild per PFT in 07/2024. Managed by Pulmonology. Respiratory symptoms stable on Stiolto # GERD: - Reports symptoms are stable on famotidine 20mg. Avoid dietary triggers # ED: - Trial sildenafil in the past with inadequate response to Tx. - Requesting refill on tadalafil 20mg. Rx renewed. # Depression: - Mood is stable on sertraline 100mg. Denies SI, low risk for self-harm. # Positive FOBT: - CBC WNL, referred to GI, appt scheduled 11/03/2023 HM: AAA screen: AAA US completed 01/22/2023, No abdominal aortic aneurysm (reviewed per JLLeticia) Colorectal cancer screening: Last completed: declined c-scope in the past, completed Cologuard one year ago with his outside PCP. Will request records Prostate cancer screening: Last completed: 4.123 H* ng/mL 04/15/2024 10:10 Lung cancer screening: Eligibility: quit smoking 8 years ago. LDLCT ordered ADMINISTERED No data available REFUSED ======= Immunization Date Facility Info COVID-19 (PFIZER), MRNA, LNP-S, * 04/15/2024 [facility]* <I> PNEUMOCOCCAL CONJUGATE, UNSPECIF* 10/10/2024 No Site <I> PNEUMOCOCCAL CONJUGATE, UNSPECIF* 04/15/2024 [facility]* <I> TDAP 10/10/2024 No Site <I> TDAP 04/15/2024 [facility]* <I> ZOSTER RECOMBINANT 10/10/2024 No Site <I> ZOSTER RECOMBINANT 04/15/2024 [facility]* <I> clinical reminders completed; educated on continuing to avoid salt, conc sweets; benefits of continued exercise, reg PCP visits, routine eyes exams Plan of care has been discussed with including expected therapeutic benefits and potential side effects of prescribed medications and treatments. Current medication list has been reconciled with and updated accordingly. [place] was instructed to keep all scheduled appointments and to contact complex human resources manager for any additional problems. [place] verbalizes understanding and is in agreement with the plan of care. RTC: 6m or sooner PRN PREVENTION & SCREENING: ALCOHOL: Clinical Reminder not due now or within a month BLOOD PRESSURE: Clinical Reminder not due now or within a month HEMOGLOBIN A1C: Clinical Reminder not due now or within a month MST Screening - V: Patient denies experiencing sexual trauma (MST). RHS Screen - VS: RHS Screen Environmental Check Upon inquiry, the individual reports that the environment is safe to proceed. Informed Consent to Screen and Document The individual consents to proceed with screening. The individual consents to documentation of responses. PRIMARY SCREEN: In the past 12 months, how often did a current or former intimate partner (e.g., boyfriend, girlfriend, , , sexual partner): 1. Scream or curse at you Rarely 2. Insult or talk down to you Rarely 3. Threaten you with harm Never 4. Physically hurt you Never 5. Force or pressure you to have sexual contact against your will, or when you were unable to say no Never The HITS tool (items 1-4 above) is US copyright protected by Washington Luna MD, and the user has full rights to use it throughout the [place] system. PRIMARY SCREEN RESULT: The Primary Screen is POSITIVE. The individual reported a response besides never to at least 1 of the 5 items SECONDARY SCREEN: Has the IPV behavior increased in frequency/severity in the past 6 months? Yes Has your partner ever choked or strangled you? No Do you believe your partner may kill you? No SECONDARY SCREEN RESULTS: The Secondary Risk Screen is NEGATIVE (i.e., answered no to all 3 items above) RESOLUTION: Individual declines consult or referral The individual accepts education and/or resources: No EDUCATION: The individual indicated readiness to learn. Education offered during this session as noted above. The individual indicated understanding by asking relevant questions and making appropriate comments. No barriers to learning were observed or identified. Diagnostic Colonoscopy - L,N,P,PH: (+) FIT/FOBT identified. A diagnostic Colonoscopy is due based on information available to this reminder. Defer diagnostic reminder for 1 month. Reason for deferral: GI consult placed. Appt scheduled 11/03/2024 /delmy/ GELA HODGES, AGNP-C NURSE PRACTITIONER Signed: 10/12/2024 17:37 10/14/2024 ADDENDUM STATUS: COMPLETED lab results review Contacted the patient to interpret the labs results and update the plan of care. Verified I.D. with full name and Date of . # Elevated PSA. Check UA, if normal refer to Urology. # HLD. ASCVD score 20.9%. Start atorvastatin 20mg/day. repeat LFT in 6 weeks. Lifestyle modifications encouraged. /GELA Davey, AGNP-C NURSE PRACTITIONER Signed: 10/14/2024 14:52 NITHYA CASTILLO [facility]
--- OUTSIDE RECORDS SUMMARY | 2025-02-02 09:39 | XMS_ITS ---
Author Name [facility] Address [address] [place] [address] Care Team Providers Care Brand Advisor Name Role Phone NITHYA CASTILLO Primary Care [...] Name Patient's Relationship to Policy Perez [employer] [facility] (WNR) MEDICARE ADVANTAGE [facility] (WNR) Jul 05, 2022 [id number] [id number] JITENDRA LARRY PATIENT Selected Encounter This section includes the information on record at [place] for the Encounter. Date/Time Encounter Type Encounter Description Reason Provider Source Jul 06, 2024 09:00 AM OFF/OP CNSLTJ NEW/EST MOD 40 PULMONARY/CHEST ICD-10-CM R91.8 Other nonspecific abnormal finding of lung field CHIRAG HURD Encounter Template Text not used by [facility] Assessments - Encounter Diagnoses This section includes the primary and secondary diagnoses documented for the Encounter. Date/Time Primary/Secondary Diagnosis Diagnosis Name Provider Source Jul 06, 2024 04:55 PM PRIMARY Other nonspecific abnormal finding of lung field CHIRAG HURD [facility] Jul 06, 2024 04:55 PM SECONDARY Chronic obstructive pulmonary disease, unspecified CHIRAG HURD [facility] Jul 06, 2024 04:55 PM SECONDARY Personal history of nicotine dependence CHIRAG HURD [facility] Plan of Treatment: Future Appointments (+ 6 months) and Future Tests (+/- 45 days) The Plan of Treatment section includes future care activities for the patient from all [place] [facility]. This section includes future appointments and future orders which are active, pending or scheduled. Future Appointments This section includes appointments that were scheduled to occur 6 months from the date of the Encounter, up to a maximum of 20 appointments. The data comes from all [facility]. Appointment Date/Time Appointment Type Appointme nt Facility Name Aug 31, 2024 04:00 PM AMBULATORY - MEDICINE [facility] Oct 12, 2024 02:00 PM AMBULATORY - MEDICINE [facility] Oct 13, 2024 10:00 AM AMBULATORY - MEDICINE [facility] Oct 31, 2024 10:00 AM AMBULATORY - MEDICINE [facility] Nov 03, 2024 09:00 AM AMBULATORY - MEDICINE [facility] Nov 09, 2024 08:00 AM AMBULATORY - SURGERY [facility] Dec 02, 2024 10:00 AM AMBULATORY - MEDICINE [facility] Dec 06, 2024 09:45 AM AMBULATORY - NONE [facility] Active, Pending, and Scheduled Orders This section includes a listing of several types of active, pending, and scheduled orders, including clinic medications orders, diagnostic test orders, procedure orders and consult orders; where the start date of the order is 45 days before the date of the Encounter or 45 days after the date of theEncounter. The data comes from all [facility]. Test Date/Time Test Type Test Details Facility Name Jul 05, 2024 12:00 AM Laboratory - Chemi stry Order LIPID PANEL (STL) GREEN LI/HEP BLD/PLAS PLASMA SP ONCE [facility] Vital Signs: All taken on the encounter date This section contains inpatient and outpatient Vital Signs collected on the date of the Encounter. Date/Time Temperature Pulse Blood Pressure Respiratory Rate SP02 Pain Height Weight Body Mass Index Source Jul 06, 2024 07:44 AM 148/88 [facility] Jul 06, 2024 07:44 AM 98.3 71 147/85 18 97 0 164.9 24 [facility] Encounter Notes: All associated encounter notes This section contains the clinical notes associated to the Encounter. Date/Time Encounter Note(s) Provider Source Jul 06, 2024 04:56 PM PULMONARY CONSULT: LOCAL TITLE: PULMONARY OUTPATIENT CONSULT NOTE [facility] STANDARD TITLE: PULMONARY CONSULT DATE OF NOTE: JUL 06, 2024@16:56 ENTRY DATE: JUL 06, 2024@16:56:45 AUTHOR: CHIRAG HURD EXP COSIGNER: URGENCY: STATUS: COMPLETED Patient seen and examined with the resident. I agree with the assessment and plan as documented above. Please see PULMONARY OUTPATIENT FOLLOW UP note from same date. 68 yo M w/ PMH of tobacco use (now abstinent for 8 years), COPD, and findings of biapical scarring on CT. - Reassurance provided re: biapical scarring - Continue yearly LDCT screening - Will change the patients current ICS/LABA and LAMA to Stiolto (LABA/LAMA) - [facility] to [facility] /delmy/ Chirag Hurd MD Pulmonary and Critical Care Physician Signed: 07/06/2024 17:01 CHIRAG HURD [facility] Jul 06, 2024 12:00 PM PULMONARY OUTPATIE NT NOTE: LOCAL TITLE: PULMONARY OUTPATIENT FOLLOW UP [facility] STANDARD TITLE: PULMONARY OUTPATIENT NOTE DATE OF NOTE: JUL 06, 2024@12:00 ENTRY DATE: JUL 06, 2024@12:01:51 AUTHOR: JACQUES STOKES EXP COSIGNER: CHIRAG HURD URGENCY: STATUS: COMPLETED PULMONOLOGY CLINIC HISTORY AND PHYSICAL CC: changes of fibrosis on CT scan HPI: Pt. is a 68 y/o WHITE MALE presenting for evaluation after recent CT chest showed concern for fibrosis. Patient's pulmonary history begins 7-8 years prior when he sought care for 1-2 days of hemoptysis. Hemoptysis self- resolved. Work-up made note of COPd/emphysem for which he was prescribed inhalers. CT at that time showed pulmonary nodules, for which he follows with yearly CT scans. He smoked from the age of 17 until 7-8 years prior when he first expperienced hemoptysis. Max use was 3 ppd. Patient notes his symptoms have been largely stable on his current routine of albuterol and fluticasone/salmeterol. He does note cough worsening in the past 2 months that is related to diet and worse with laying flat. Still able to walk 1-2 miles without dyspnea. ROS: Review of systems is as per HPI and additionally notable for Constitutional: No fever, No weakness/ fatigue Cardiovascular: No chest pain, No palpitations Respiratory: No shortness of breath, Positive for cough Genitourinary: No dysuria, No polyuria Neurology: No headache, No tremors Musculoskeletal: No joint pain, No back pain Skin: No rash, No itching Psychiatric: No anxiety, No depression 10-point ROS is otherwise negative. PMHx: Reviewed. Notable for COPD MEDS: Reviewed. 1) HTN - Hypertension ([facility] [id number]) 2) COPD - Chronic Obstructive Pulmonary Disease ([facility] [id number]) 3) Erectile Dysfunction ([facility] [id number]) 4) Ex-tobacco user 5) Current drinker 6) Exposure to potentially hazardous substance ([facility] [id number]) 7) Depression Active Outpatient Medications (excluding Supplies): Issue Date Status Last Fill Active Outpatient Medications Refills Expiration 1) ALBUTEROL 90MCG (CFC-F) 200D ORAL INHL ACTIVE Issu:04-16-24 Qty: 3 for 90 days Sig: INHALE 2 Refills: 2 Last:07-05-24 PUFFS ORAL INHALATION FOUR TIMES A DAY Expr:04-17-25 NEEDED FOR COPD SHAKE WELL. RINSE MOUTHPIECE FREQUENTLY TO PREVENT CLOGGING. 2) LISINOPRIL 40MG TAB Qty: 45 for 90 days ACTIVE Issu:04-16-24 Sig: TAKE ONE-HALF TABLET BY MOUTH Refills: 2 Last:07-05-24 ONCE A DAY FOR HIGH BLOOD PRESSURE Expr:04-17-25 3) SERTRALINE HCL 100MG TAB Qty: 15 for 30 ACTIVE Issu:05-30-24 days Sig: TAKE ONE-HALF TABLET BY Refills: 5 Last:06-29-24 MOUTH EVERY MORNING FOR DEPRESSION Expr:05-31-25 Issue Date Status Last Fill Pending Outpatient Medications Refills Expiration 1) FAMOTIDINE 20MG TAB Qty: 180 Sig: TAKE PENDING ONE TABLET BY MOUTH TWICE A DAY Refills: 0 2) OLODATEROL/TIOTROP 2.5MCG/ACTUAT 60D INH PENDING Qty: 1 Sig: INHALE 2 PUFFS BY ORAL Refills: 0 INHALATION ONCE A DAY ADMINISTER AT SAME TIME EACH DAY 5 Total Medications FHx: SHx: Smoking- EtOH- Drugs- Occupation- Lives with- Branch of - Vitals-98.3 F [36.8 C] (07/06/2024 07:44)71 (07/06/2024 07:44)148/88 (07/06/2024 07:44)18 (07/06/2024 07:44) Measurement DT POx (L/MIN)(%) 07/06/2024 07:44 97 04/15/2024 08:25 100 04/15/2024 08:25 100 Gen: NAD HEENT: NA/AT, EOMI, MMM Neck: No thyromegaly, no LAD Chest: CTAB, equal expansion b/l Cardiac: RRR, no m/r/g Abd: Soft, NTND, NABS Ext: WWP, no c/c/e Neuro: CN II-XII grossly intact, no focal deficits Psych: Appropriate mood and affect Hemoccult:No FOBT EO data found LABS: Hgb HGB 15.8 g/dL 04/15/2024 10:10 Hct 45.9 % (04/15/24 10:10) MCV 88.3 fL (04/15/24 10:10) Plt PLT 259 10*3/uL 04/15/2024 10:10 Iron, TIBC IRON 154 ug/dL 05/31/2024 09:07 TIBC 359 ug/dL 05/31/2024 09:07 Stef FERRITIN 216.49 ng/mL 05/31/2024 09:07 BUN 9.8 mg/dL (04/15/24 10:10) Cr CREATININE 1.14 mg/dL 04/15/2024 10:10 Alb ALBUMIN 4.7 g/dL 05/31/2024 09:07 Ca 9.5 mg/dL (04/15/24 10:10) TSH TSH 1.793 uIU/mL 04/15/2024 10:10 Vit D No VITAMIN D 25 HYDROXY EO data found ALT 13 U/L (05/31/24 09:07) AST 19 U/L (05/31/24 09:07) TB TOTAL BILIRUBIN 1.2 mg/dL 05/31/2024 09:07 AP ALKALINE PHOSPHATASE 61 U/L 05/31/2024 09:07 INR No INR EO data found IMAGING: No Impressions found Impression for US ABDOMEN LTD, SINGLE ORG OR QUADRANT, 05/31/24, case 902 Borderline hepatomegaly otherwise normal liver. Normal gallbladder with no bile duct dilatation. No Impressions found Assessment and Plan: Mr. Larry presents for evaluation of recent CT scan findings. On review, CT with findings of mild apical fibrosis. No concern at this time and recommend routine CT screening for lung cancer given smoking history. CT also shows mild emphysema, with PFTs showing findings of mild COPD. With regards to his cough, he notes that it is worse with foods known to classicly provoke acid reflux. Also worse with laying flat. Discussed initiating omeprazole. Patient hesitant given possible side effects with long term acute care registered nurse use. He is amenable to famotidine. With regards to COPD management, will transition from ICS to stialto given stability of his COPD with no history of frequent exacerbations. Will follow up with patient in clinic. /delmy/ JACQUES STOKES Technical Testing Engineer Signed: 07/06/2024 12:08 /delmy/ Chirag Hurd MD Pulmonary and Critical Care Physician Cosigned: 07/06/2024 16:56 JACQUES STOKES [facility]
--- OUTSIDE RECORDS SUMMARY | 2025-02-02 09:39 | XMS_ITS | Encounter Summary ---
Author Organization [facility] Address [address] [place] [address] Phone Care Team Providers Care Skiver Machine Operator Name Role Phone Checo Baez MD Primary Care Provider [phone] Reason for Visit * Reason Comments Medication Refill Encounter Details Date Type Department Care Team ([facility] st Contact Info) Description 02/28/2023 Refill [facility] - Family Medicine [facility] [address] [place] [address] Checo Baez MD [address] [address] Medication Refill Social History Tobacco Use Types Packs/Day Years Used Date Smoking Tobacco: Former Cigarettes Q uit: 02/25/2016 Smokeless Tobacco: Current Chew Alcohol Use Standard Drinks/Week Comments Yes 10 (1 standard drink = 0.6 oz pu re alcohol) PHQ-2 Answer Date Recorded Total Score - Questions 1-9 0 12/04 Sexually Active Control Partners Comments Yes Female Sex and Gender Information Value Date Recorded Sex Assigned at Not on file Legal Sex Male 7:07 PM CDT Gender Identity Not on file Sexual Orientation Not on file documented as of this encounter Miscellaneous Notes * Telephone Encounter - Alicia Felton RN - 03/03/2023 7:29 AM CDT Medication failed the protocol, provider to review and approve the medication order if appropriate. Requested Prescriptions Pending Prescriptions Disp Refills lisinopril (IVIL, ZESTRIL) 20 MG Tablet [Pharmacy Med Name: LISINOPRIL 20 MG TABLET] 90 Tablet 1 Sig: TAKE 1 TABLET BY MOUTH EVERY DAY MARIA A Inhibitors Protocol Failed - 02/28/2023 7:48 AM Failed - Serum potassium on record in past 12 months No results found for: POTASSIUM, POCTK Failed - GFR on record in past 12 months No results found for: GFRNA Passed - Blood pressure on record in past 12 months Clinician-entered: BP Readings from Last 3 Encounters: 01/13/23 112/68 07/15/22 132/82 12/27/21 110/68 Patient-entered: No data recorded Passed - Visit with relevant provider in past 12 months or upcoming 90 days Recent Visits Date Type Provider Dept 01/13/23 Office Visit Checo Baez MD [facility] 07/15/22 Office Visit Checo Baez MD [facility] Showing recent visits within past 365 days [...] documented as of this encounter Care Teams Skiver Machine Operator Relationship Specialty Start Date End Date Checo Baez MD [address] [address] PCP - General Family Medicine 09/05/15 documented as of this encounter
--- OUTSIDE RECORDS SUMMARY | 2025-02-02 09:39 | XMS_ITS | Encounter Summary ---
Author Name [facility] [place] [facility] [place] Address [address] [place] [address] Care Team Providers Care Field Project Manager Name Role Phone NITHYA CASTILLO Primary Care [...] Name Patient's Relationship to Policy Perez AETNA [facility] (WNR) MEDICARE ADVANTAGE [facility] (WNR) Jul 05, 2022 [id number] JITENDRA MOON PATIENT Selected Encounter This section includes the information on record at [place] for the Encounter. Date/Time Encounter Type Encounter Description Reason Provider Source Dec 02, 2024 10:00 AM PSYTX W PT 30 MINUTES PCMHI INDIV ICD-10-CM F33.1 Major depressive disorder, recurrent, moderate MARS,MELLO IHE Encounter Template Text not used by [facility] Assessments - Encounter Diagnoses This section includes the primary and secondary diagnoses documented for the Encounter. Date/Time Primary/Secondary Diagnosis Diagnosis Name Provider Source Dec 07, 2024 01:21 PM PRIMARY Major depressive disorder, recurrent, moderate MARS,MELLO [facility] Dec 07, 2024 01:21 PM SECONDARY Pathological gambling JERADMELLO [facility] Plan of Treatment: Future Appointments (+ 6 months) and Future Tests (+/- 45 days) The Plan of Treatment section includes future care activities for the patient from all [place] [facility]. This section includes future appointments and future orders which are active, pending or scheduled. Future Appointments This section includes appointments that were scheduled to occur 6 months from the date of the Encounter, up to a maximum of 20 appointments. The data comes from all [facility]. Appointment Date/Time Appointment Type Appointme nt Facility Name Dec 06, 2024 09:45 AM AMBULATORY - NONE [facility] Jan 05, 2025 09:00 AM AMBULATORY - MEDICINE [facility] Jan 11, 2025 08:30 AM AMBULATORY MEDICINE [facility] Jan 13, 2025 11:00 AM AMBULATORY - MEDICINE [facility] February 23, 2025 01:00 PM AMBULATORY - MEDICINE [facility] Apr 13, 2025 02:00 PM AMBULATORY MEDICINE [facility] Active, Pending, and Scheduled Orders This section includes a listing of several types of active, pending, and scheduled orders, including clinic medications orders, diagnostic test orders, procedure orders and consult orders; where the start date of the order is 45 days before the date of the Encounter or 45 days after the date of theEncounter. The data comes from all [facility]. Test Date/Time Test Type Test Details Facility Name Nov 28, 2024 12:00 AM Laboratory - Chemi stry Order HEPATIC FUNTION PANEL (STL) GREEN LI/HEP BLD/PLAS PLASMA SP [facility] Jan 05, 2025 10:34 AM Procedure Order PFT PROCED URE [facility] PULMONARY FUNCTION TEST (PFT) OUTPT [facility] Proc Lard Mixer's Choice [facility] Social History: Smoking Status (Most current) and Tobacco Use (All prior to encounter date) This section includes the most current, and the historical, smoking and tobacco- related health factors from the [place] facility where the Encounter took place. Current Smoking Status This section includes the most current smoking, or tobacco-related health factor, from the [facility] facility where the Encounter took place. Date/Time Current Smoking Status Comment Facil ity Apr 15, 2024 08:30 AM VA-TOBACCO USER EVERY DAY [facility] Tobacco Use History This section includes a history of the smoking, or tobacco-related health factors, that were collected on or before the date of the Encounter. The data comes from the [place] facility where the Encounter took place. 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 The data comes from all [place] treatment facilities. Date/Time Radiology Report Provider Source Dec 06, 2024 01:30 PM MRI PROSTATE W&W/O CONTRAST: JITENDRA MOON [id number] -[id number] M Ex Date: DEC 06, 2024@13:30 Req Phys: CHRISTIANO GAMBOA Loc: [facility] 1 (Req'g Loc) Img Loc: OUTSIDE [facility] Service: Unknown (Case [id number] COMPLETE) MRI PROSTATE W&W/O CONTRAST (MRI Detailed) CPT:25348 Reason for Study: OUTSIDE EXAM Clinical History: OUTSIDE EXAM Report Status: Electronically Filed Date Reported: DEC 08, 2024 Report: This study was performed outside the [facility] in another facility and images were uploaded into [employer]. The report has been scanned into [employer]. In order to upload images a case number was needed, therefore this is an administrative report. Impression: This study was performed outside the [facility] in another facility and images were uploaded into [employer]. The report has been scanned into [employer]. In order to upload images a case number was needed, therefore this is an administrative report VERIFIED BY: / *ELECTRONICALLY FILED* [facility] Encounter Notes: All associated encounter notes This section contains the clinical notes associated to the Encounter. Date/Time Encounter Note(s) Provider Source Dec 02, 2024 10:36 AM PSYCHOLOGY OUTPATI ENT NOTE: LOCAL TITLE: PRIMARY CARE PSYCHOLOGY NOTE [facility] STANDARD TITLE: PSYCHOLOGY OUTPATIENT NOTE DATE OF NOTE: DEC 02, 2024@10:36 ENTRY DATE: DEC 02, 2024@10:36:29 AUTHOR: MELLO MARS EXP COSIGNER: URGENCY: STATUS: COMPLETED Follow-up Template NAME: JITENDRA MOON DATE OF : Jul TIME SPENT WITH PATIENT: 30 minutes DIAGNOSIS BEING TREATED: MDD, Recurrent, Mod; gambling addiction CPT Code: 97090 NATURE OF ENCOUNTER: follow up visit SESSION FORMAT: [X] [id number] [ ] Video Telehealth [ ]Phone Confirmed Sullivan's location and phone number for virtual appointment. [ ]Yes [ ]N/A NOTE: Use separate CVT template, if appropriate SESSION NUMBER: 4 INTERVENTION/TREATMENT PROVIDED [X] Rapport Building [X] Shared decision-making regarding goals of care [X] Supportive Psychotherapy [ ] Solution-Focused Psychotherapy [ ] Insight Oriented Psychotherapy [ ] Cognitive Behavioral Therapy Skills [ ] Acceptance and Commitment Therapy Skills [ ] Interpersonal Therapy Skills [ ] Motivational Interviewing [ ] Culture-based Interventions [ ] Health Psychology Interventions [ ] Evidence Based Psychotherapy: [ ] Psychosocial Interventions [ x] Other: Behavior Modification Description of Interventions Provided by Therapist: Decrease gambling addiction by removing stimulus (discussed Do Not Enter paperwork) Psychoeducation provided regarding [facility] ALCOHOL LAW ENFORCEMENT AGENT services. Revisited med options for mood. MO- to make connection between alcohol and gambling and subsequent consequence. RELEVANT HISTORICAL DEVELOPMENTS SINCE LAST CONTACT: NOTE: Describe relevant historical developments below Sullivan reported things between he and his are going really well. Vet reported this was until recently when he had another slip up . Annie reported he and his had a date night, and went out for dinner. Amanda reported afterwards he drove the couple to their casino for drinks. Amanda reported his was not protest of this, but because he was driving he decided to drive the couple there in spite of. Annie reported after having drinks, they ended up gambling, in which he gambled excessively. Annie reported they are currently not speaking, and have not spoken for several days. Annie reported this is a typical cycle for the relationship. Amanda was asked multiple questions in order to increase his level of insight into how his choices played a role in their conflict. Amanda admitted he drove a couple to the casino for drinks, in spite of his 's protests, knowing she would not drive and leave them at the casino. Amanda reported he also sat at the table, talking with friends for prolonged period of time, waiting for his to be the first 1 to jo at a machine. Amanda reported he knew if she would gambler the machine first, this could be used as a tactic to blame her for his subsequent gambling behaviors. Amanda was able to make several critical connections. 1: He had plan to jo while the patient was having dinner. 2: He knew his would not drive their vehicle alone, which is why he drove into the casino. 3: If he waited long enough and made the environment boring enough for his , she would eventually use a slot machine. 4: Waiting for his to jo first would then be his excuse to make it okay for him to do the same. A discussion and ways of removing the stimulus from Amanda was had given his repeated notion of just wanting to quit. Discussed the option of adding his name to the casinos do not allow entry list. This option would allow the casino to help the and staying away from gambling by not allowing him to enter. Annie considered this thought, but ultimately did not commit to this. Amanda brought up the option of starting medication, given a close friend of his is currently taking buspirone and homeless indicating significant progress with his mood and gambling addiction. This provider offered to set up a an appointment with psychiatry, Amanda did not commit to this. Also discussed ALCOHOL LAW ENFORCEMENT AGENT services in which a clinician can help assist a couple on their communication styles. Sullivan indicated he would consider this, Sullivan did not commit to this. Discussed the option of modifying behaviors after date night to not include drinks in a public setting. Discussed the likelihood that this would decrease the frequency of gambling. Sullivan indicated his gambling is almost always linked with the couple starting out at the casino for just drinks . ASSESSMENT MEASURES USED: [ ] Measure in Mental Health Cake Maker. See accompanying Mental Health Diagnostic Study for details. [x ] Measure(s) sent via [facility], electronically following visit. agrees to asynchronous electronic administration; when returned, measure results will be included in a note or addendum in CPRS [ ] Other Measures: Measure: Score: Measure: Score: [ ] N/A: Not administered this session Date/Score of last administration: [ ]Functional/Symptom Assessment: Symptom(s)/Function(s) tracked by Changes in frequency, intensity or duration since last visit: Collaboratively discussed outcomes related to assessment and treatment progress and measures will continue to be monitored. MEASURABLE TREATMENT GOALS FOR THIS EPISODE OF CARE: 1. GOAL/OBJECTIVES: improve mood by utilizing CBT skills and meds PROGRESS TOWARDS GOAL: some regression and also some progress since last session. still no decision regarding meds. although he went more than a week with abstaining from the larger casino, and carrying limited haq, he recently relapsed. 2. GOAL/OBJECTIVES: PROGRESS TOWARDS GOAL: 3. GOAL/OBJECTIVES: PROGRESS TOWARDS GOAL: RESPONSE TO INTERVENTIONS: Veterans participation/engagement: [x ]The Sullivan participated actively in the current interventions. [ ]Other: The Sullivan continues to consent to the current plan of care: Yes Comments: RISK ASSESSMENT: [ x] NO CHANGE IN RISK FACTORS Related to Suicide or Homicide. Sullivan did not report any current suicidal/homicidal ideation, plan, or intent. did not appear to be at imminent risk for suicide or homicide at this time and is considered sustainable at the current level of care. [ ] NEW/UPDATED RISK ASSESSMENT: -RELEVANT RISK AND PROTECTIVE FACTORS: -IDEATION: [ ] Sullivan denied current suicidal or homicidal ideation, plan, or intent. [ ] Suicidal or homicidal ideation/behavior WAS identified: -CLINICAL JUDGMENT AND DISPOSITION: [ ] In consideration of relevant risk and protective factors, the Sullivan did NOT appear to be at imminent risk for suicide or homicide at this time and IS sustainable at the current level of care. [ ] Sullivan IS considered to be at INCREASED RISK for suicide or homicide based upon: -Actions/interventions taken to address risk and prevent harm include: -Emergency protocols initiated were: ASSIGNED WORK: Vet will discuss with his if she is interested in ALCOHOL LAW ENFORCEMENT AGENT services. Also notified vet of services that specifically address gambling addiction to include meds only, gambling therapy with an addiction counselor, and/or groups. Vet still considering. Vet to removing having casual drinks in the casino as an option and choose a restaurant (that doesn't have a slot machine) instead. COLLABORATIVE RECOMMENDATIONS/PLAN: Collaboratively discussed outcomes related to assessment and treatment progress. Based on this discussion: [ x] No changes to plan of care. Sullivan expressed agreement with therapy tasks and [id number] plan. [ ] Using shared decision making, Sullivan and provider agreed to the following change in plan: Educated on the risks, benefits, and possible complications related to changes to treatment plan. Sullivan agreed to proceed with the change. [ x]YES [ ]NO It should be noted, this note was typed using a dictation software and there may be misspellings by mistake, as a result. /delmy/ Mello Mars Psy.D. Staff Psychologist Signed: 12/07/2024 13:22 MELLO MARS [facility]
--- OUTSIDE RECORDS SUMMARY | 2025-02-02 09:39 | XMS_ITS | Encounter Summary ---
Author Name [facility] [place] [facility] [place] Address [address] [place] [address] Care Team Providers Care Layaway Clerk Name Role Phone NITHYA CASTILLO Primary Care [...] Name Patient's Relationship to Policy Perez [employer] [facility] (WNR) MEDICARE ADVANTAGE [facility] (WNR) Jul 05, 2022 [id number] JITENDRA MOON PATIENT Selected Encounter This section includes the information on record at [place] for the Encounter. Date/Time Encounter Type Encounter Description Reason Provider Source Jan 25, 2025 09:36 AM POS AIRWAY PRESSURE CPAP SLEEP MEDICINE ICD-10-CM G47.33 Obstructive sleep apnea (adult) (pediatric) CANDACE SMYTH MD IHE Encounter Template Text not used by [place] Assessments - Encounter Diagnoses This section includes the primary and secondary diagnoses documented for the Encounter. Date/Time Primary/Secondary Diagnosis Diagnosis Name Provider Source Jan 25, 2025 09:55 AM PRIMARY Obstructive sleep apnea (adult) (pediatric) MERCEDEZ DONNELLY [facility] Plan of Treatment: Future Appointments (+ 6 months) and Future Tests (+/- 45 days) The Plan of Treatment section includes future care activities for the patient from all [place] [facility] This section includes future appointments and future orders which are active, pending or scheduled. Future Appointments This section includes appointments that were scheduled to occur 6 months from the date of the Encounter, up to a maximum of 20 appointments. The data comes from all [facility]. Appointment Date/Time Appointment Type Appointme nt Facility Name February 23, 2025 01:00 PM AMBULATORY - MEDICINE [facility] Apr 13, 2025 02:00 PM AMBULATORY - MEDICINE [facility] Jun 02, 2025 10:30 AM AMBULATORY - SURGERY [facility] Active, Pending, and Scheduled Orders This section includes a listing of several types of active, pending, and scheduled orders, including clinic medications orders, diagnostic test orders, procedure orders and consult orders; where the start date of the order is 45 days before the date of the Encounter or 45 days after the date of theEncounter. The data comes from all [facility]. Test Date/Time Test Type Test Details Facility Name Jan 05, 2025 10:34 AM Procedure Order PFT PROCED URE PULMONARY FUNCTION TEST (PFT) OUTPT Proc Child Care Education Coordinator's Choice [facility] Lab Results: +/- 30 days of the encounter This section includes the Chemistry and Hematology Lab Results on record with [place] for the patient. Radiology Reports and Pathology Reports are provided separately, in subsequent sections. Lab Results This section contains the Chemistry/Hematology Results that were resulted 30 days before or 30 daysafter the date of the Encounter. Date/Time Source Result Type Result - Unit Interpretation Reference Range Specimen Type Comment Jan 13, 2025 12:00 AM [facility] LIPID PANEL (STL) PLASMA Specimen Type: PLASMA No comment entered. Ordering Provider: NITHYA CASTILLO Report Released Date/Time: Oct 14, 2024 02:56 PM Reporting Lab: [place] [address] [facility] [id number] Performing Lab: [place] [address] [facility] [id number] CHOLESTEROL 160 mg/dL 0-200 TRIGLYCERIDE 94 mg/dL 0-150 CALCULATED LDL 93 mg/dL HDL(New) 48 mg/dL >40 Jan 13, 2025 12:00 AM [facility] PROST. SPECIFIC AG.(PB-STL) SERUM Specimen Ty pe: SERUM Comment: The listed sex of this patient may not be a typical indication for this test. Therefore, reference ranges or interpretive criteria listed may not be valid. Clinical correlation suggested. Ordering Provider: CHRISTIANO GAMBOA Report Released Date/Time: Jan 05, 2025 05:42 PM Reporting Lab: [facility] [address] [facility] [address] Performing Lab: [address] [phone] PROST. SPECIFIC AG.(PB-STL) 4.366 ng/mL HH 0-4 Encounter Notes: All associated encounter notes This section contains the clinical notes associated to the Encounter. Date/Time Encounter Note(s) Provider Source Jan 25, 2025 09:36 AM SLEEP MEDICINE NOT E: LOCAL TITLE: POSITIVE AIRWAY PRESSURE NOTE STL STANDARD TITLE: SLEEP MEDICINE NOTE DATE OF NOTE: JAN 25, 2025@09:36 ENTRY DATE: JAN 25, 2025@09:37:09 AUTHOR: CHRISTINE DONNELLY EXP COSIGNER: URGENCY: STATUS: COMPLETED Placed call to [facility] to provide HSAT results. NEYDA 28.0, low SaO2 82%. Explained HASEEB and the effect of HASEEB on the body. Dr. Smyth recommends Auto bilevel positive airway pressre, min EPAP4, max IPAP 14. PS 4 Machine, mask, and supplies ordered through [employer], [facility]. CPAP Brochure and replacement/cleaning regimen mailed to [facility]. If has questions regarding APAP, please call the CPAP clinic at [phone]. [phone]. /delmy/ CHRISTINE DONNELLY Respiratory Dairy Powder Mixer Operator Signed: 01/25/2025 09:55 Receipt Acknowledged By: 01/25/2025 10:05 /delmy/ NITHYA CASTILLO, GELA, AGNP-C NURSE PRACTITIONER CHRISTINE DONNELLY [facility]
--- OUTSIDE RECORDS SUMMARY | 2025-02-02 09:39 | XMS_ITS | Encounter Summary ---
Author Name [facility] [place] Organization [facility] [place] Address [address] [place] [address] Care Team Providers Care Rehabilitation Construction Specialist Name Role Phone NITHYA CASTILLO Primary Care [...] Name Patient's Relationship to Policy Perez [employer] [facility] (WNR) MEDICARE ADVANTAGE [facility] (WNR) Jul 05, 2022 [id number] JITENDRA MOON PATIENT Selected Encounter This section includes the information on record at [place] for the Encounter. Date/Time Encounter Type Encounter Description Reason Provider Source Oct 31, 2024 10:00 AM PSYTX W PT 30 MINUTES PCMHI INDIV ICD-10-CM F33.1 Major depressive disorder, recurrent, moderate MARS,MELLO IHE Encounter Template Text not used by [facility] Assessments - Encounter Diagnoses This section includes the primary and secondary diagnoses documented for the Encounter. Date/Time Primary/Secondary Diagnosis Diagnosis Name Provider Source Nov 06, 2024 10:35 PM PRIMARY Major depressive disorder, recurrent, moderate MARS,MELLO [facility] Plan of Treatment: Future Appointments (+ 6 months) and Future Tests (+/- 45 days) The Plan of Treatment section includes future care activities for the patient [facility] [place] [facility] This section includes future appointments and future orders which are active, pending or scheduled. Future Appointments This section includes appointments that were scheduled to occur 6 months from the date of the Encounter, up to a maximum of 20 appointments. The data comes from all [facility]. Appointment Date/Time Appointment Type Appointme nt Facility Name Nov 03, 2024 09:00 AM AMBULATORY - MEDICINE [facility] Nov 09, 2024 08:00 AM AMBULATORY - SURGERY [facility] Dec 02, 2024 10:00 AM AMBULATORY - MEDICINE [facility] Dec 06, 2024 09:45 AM AMBULATORY - NONE [facility] Jan 05, 2025 09:00 AM AMBULATORY - MEDICINE [facility] Jan 11, 2025 08:30 AM AMBULATORY - MEDICINE [facility] Jan 13, 2025 11:00 AM AMBULATORY - MEDICINE [facility] February 23, 2025 01:00 PM AMBULATORY - MEDICINE [facility] Apr 13, 2025 02:00 PM [facility] Active, Pending, and Scheduled Orders This section includes a listing of several types of active, pending, and scheduled orders, including clinic medications orders, diagnostic test orders, procedure orders and consult orders; where the start date of the order is 45 days before the date of the Encounter or 45 days after the date of theEncounter. The data comes from all [facility]. Test Date/Time Test Type Test Details Facility Name Nov 28, 2024 12:00 AM Laboratory - Chemi stry Order HEPATIC FUNTION PANEL (STL) GREEN LI/HEP BLD/PLAS PLASMA SP [facility] Results: +/- 30 days of the encounter This section includes the Chemistry and Hematology Lab Results on record with [place] for the patient. Radiology Reports and Pathology Reports are provided separately, in subsequent sections. Lab Results This section contains the Chemistry/Hematology Results that were resulted 30 days before or 30 daysafter the date of the Encounter. Date/Time Source Result Type Result - Unit Interpretation Reference Range Specimen Type Comment Oct 17, 2024 10:05 AM [facility] URINALYSIS (STL-PB) URINE Specimen Type: URINE No comment entered. Ordering Provider: NITHYA CASTILLO Report Released Date/Time: Oct 14, 2024 12:15 PM Reporting Lab: [address] [id number] Performing Lab: [address] [id number] URINE COLOR Colorless Yellow U.BILIRUBIN Negative mg/dL Negative U.PH 7.0 5.0-8.0 APPEARANCE Clear Clear U.NITRITE Negative mg/dL Negative URN.GLUCOSE Normal mg/dL Negative URN.PROTEIN Negative mg/dL URN.UROBILINOGEN Normal mg/dL Normal URN.BLOOD Negative mg/dL Negative-Trace URN.KETONES Negative mg/dL Negative-Trac e URN.LEUK.EST. Negative mg/dL Negative-Tr mere URN.SPECIFIC GRAVITY 1.004 L Oct 13, 2024 12:00 AM [facility] LIPID PANEL (STL) PLASMA Specimen Ty pe: PLASMA No comment entered. Ordering Provider: NITHYA CASTILLO Report Released Date/Time: Oct 12, 2024 02:07 PM Reporting Lab: [facility] [address] [place] [phone] Performing Lab: [address] [phone] CHOLESTEROL 241 mg/dL H 0-200 TRIGLYCERIDE 111 mg/dL 0-150 CALCULATED LDL 171 mg/dL HDL(New) 48 mg/dL >40 Oct 13, 2024 12:00 AM [facility] PROST. SPECIFIC AG.(PB-STL) SERUM Specimen Ty pe: SERUM Comment: The listed sex of this patient may not be a typical indication for this test. Therefore, reference ranges or interpretive criteria listed may not be valid. Clinical correlation suggested. Ordering Provider: NITHYA CASTILLO Report Released Date/Time: Oct 12, 2024 02:07 PM Reporting Lab: [facility] [address] [place] [phone] Performing Lab: [facility] [address] [facility] [phone] PROST. SPECIFIC AG.(PB-STL) 4.406 ng/mL HH 0-4 Social History: Smoking Status (Most current) and Tobacco Use (All prior to encounter date) This section includes the most current, and the historical, smoking and tobacco- related health factors from the [place] facility where the Encounter took place. Current Smoking Status This section includes the most current smoking, or tobacco-related health factor, from the [place] facility where the Encounter took place. Date/Time Current Smoking Status Comment Facil ity Apr 15, 2024 08:30 AM VA-TOBACCO USER EVERY DAY [facility] Tobacco Use History This section includes a history of the smoking, or tobacco-related health factors, that were collected on or before the date of the Encounter. The data comes from the [place] facility where the Encounter took place. 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 The data comes from all [place] treatment facilities. Date/Time Pathology Report Provider Source Oct 13, 2024 12:00 AM LR MICROBIOLOGY RE PORT: Accession [UID]: [id number] [[id number]] Received: Oct 13, 2024@17:49 Collection sample: STOOL Collection date: Oct 13, 2024 Site/Specimen: [facility] Provider: NITHYA CASTILLO Test(s) ordered: C&S STOOL..................... completed: Oct 16, 2024 14:31 * BACTERIOLOGY FINAL REPORT => Oct 16, 2024 14:55 TECH CODE: [id number] Bacteriology Remark(s): 10.14.24 KAA 10/15/24 [facility] CULTURE SHOWS HEAVY GROWTH USUAL ENTERIC JAY 10/16/24 [facility] CULTURE GREW USUAL ENTERIC JAY- NO ENTERIC PATHOGENS ISOLATED. NO Aeromonas, Campylobacter, E.coli 0157, Plesiomonas, Salmonella, Shigella, or Yersinia isolated. =--=--=--=--=--=--=--=--=--=--=-- =--=--=--=--=--=--=--=--=--=--=-- =--=--=--=-- Performing Laboratory: Bacteriology Report [facility] CLIA# [id number] [facility] [address] [place] [address] [facility] Encounter Notes: All associated encounter notes This section contains the clinical notes associated to the Encounter. Date/Time Encounter Note(s) Provider Source Oct 31, 2024 10:10 AM PSYCHOLOGY OUTPATI ENT NOTE: LOCAL TITLE: PRIMARY CARE PSYCHOLOGY NOTE STL STANDARD TITLE: PSYCHOLOGY OUTPATIENT NOTE DATE OF NOTE: OCT 31, 2024@10:10 ENTRY DATE: OCT 31, 2024@10:10:38 AUTHOR: MELLO MARS EXP COSIGNER: URGENCY: STATUS: COMPLETED Follow-up Template NAME: JITENDRA MOON DATE OF : Jul TIME SPENT WITH PATIENT: 30 minutes DIAGNOSIS BEING TREATED: MDD, Recurrent, Mod CPT Code: 16853 NATURE OF ENCOUNTER: follow up visit SESSION FORMAT: [X] [id number] [ ] Video Telehealth [ ]Phone Confirmed Watson's location and phone number for virtual appointment. [ ]Yes [ ]N/A NOTE: Use separate CVT template, if appropriate SESSION NUMBER: 3 INTERVENTION/TREATMENT PROVIDED [X] [place] [X] Shared [...] Based Psychotherapy: [ ] Psychosocial Interventions [ ] Other: Description of Interventions Provided by Therapist: med check and follow up RELEVANT HISTORICAL DEVELOPMENTS SINCE LAST CONTACT: NOTE: Describe relevant historical developments below Annie processed a myriad of things which have increased his stress as of lately. Annie had things written down, as he reported these are things which bother him often. 1- gambling (1x every 1-2 months will spend up to $500 2- slow down on drinking 3- marriage 4- stop being in my mind and thinking 5- stop being hopeless and depressed 6- take charge of my life and eat better 7-stop being withdrawn (not feeling productive- if I'm not watching TV I'm not talking. We can go a whole day without talking). 8- stop feeling like a failure 9- try to forget the past. 10- try to be more positive. Annie has been for 45 years. Annie also shared that there is zero intimacy in his relationship- no hugging, kissing, holding hands, or intercourse. Annie estimates it has been this way for the past couple years. Annie says she blames it on his gambling and drinking, but also reported she is having female issues which appear to also contribute to things. Annie also added his has anxiety, and panic attacks. Annie reported his biggest stressor is his marriage- when my marriage is good, I feel like everything else is good . ASSESSMENT MEASURES USED: [ ] Measure in Mental Health Music Publicist. See accompanying Mental Health Diagnostic Study for details. [x ] Measure(s) sent via [facility], electronically following visit. Watson agrees to asynchronous electronic administration; when returned, [...] CBT skills and meds PROGRESS TOWARDS GOAL: regression since last session. 2. GOAL/OBJECTIVES: PROGRESS TOWARDS GOAL: 3. GOAL/OBJECTIVES: PROGRESS TOWARDS GOAL: RESPONSE TO INTERVENTIONS: Veterans participation/engagement: [x ]The participated actively in the current interventions. [ ]Other: The Watson continues to consent to the current plan of care: Yes Comments: RISK ASSESSMENT: [ x] NO CHANGE IN RISK FACTORS Related to Suicide or Homicide. did not report any current suicidal/homicidal ideation, plan, or intent. Watson did not appear to be at imminent risk for suicide or homicide at this time and is considered sustainable at the current level of care. [ ] NEW/UPDATED RISK ASSESSMENT: -RELEVANT RISK AND PROTECTIVE FACTORS: -IDEATION: [ ] denied current suicidal or homicidal ideation, plan, or intent. [ ] Suicidal or homicidal ideation/behavior WAS identified: -CLINICAL JUDGMENT AND DISPOSITION: [ ] In consideration of relevant risk and protective factors, the Watson did NOT appear to be at imminent risk for suicide or homicide at this time and IS sustainable at the current level of care. [ ] IS considered to be at INCREASED RISK for suicide or homicide based upon: -Actions/interventions taken to address risk and prevent harm include: -Emergency protocols initiated were: ASSIGNED WORK: Vet will discuss with his if she is interested in [employer] services. Also notified vet of services that specifically address sexual intimacy. Vet to only take haq when going out, leave his debit card at home to minimize excessive gambling. COLLABORATIVE RECOMMENDATIONS/PLAN: Collaboratively discussed outcomes related to assessment and treatment progress. Based on this discussion: [ x] No changes to plan of care. Watson expressed agreement with therapy tasks and [id number]-[id number] plan. [ ] Using shared decision making, and provider agreed to the following change in plan: Educated on the risks, benefits, and possible complications related to changes to treatment plan. agreed to proceed with the change. [ x]YES [ ]NO /es/ Mello Mars Psy.D. Staff Psychologist Signed: 11/06/2024 22:35 MELLO MARS [facility]
--- OUTSIDE RECORDS SUMMARY | 2025-02-02 09:39 | XMS_ITS | Encounter Summary ---
Author Organization [facility] Address [address] [place] [address] Phone Care Team Providers Care Event Marketing Specialist Name Role Phone Checo Baez MD Primary Care Provider [phone] Encounter Details Date Type Department Care Team (Latest Contact Info) Description 12/08/2024 Results Follow-Up [facility] - Gastroenterology - [facility] [address] [place] [id number] Sukhi Short MD [address] [address] Pathology Surgical Social History Tobacco Use Types Packs/Day Years [...] on file documented as of this encounter Plan of Treatment Not on file documented as of this encounter Visit Diagnoses Not on filedocumented in this encounter Additional Health Concerns Assessment Noted Time PHQ-9 Depression Total Score: 0 06/21/20 21 8:00 AM CDT documented as of this encounter Care Teams Event Marketing Specialist Relationship Specialty Start Date End Date Checo Baez MD [address] [place] [phone] PCP - General Family Medicine 09/05/15 documented as of this encounter
--- OUTSIDE RECORDS SUMMARY | 2025-02-02 09:39 | XMS_ITS | Encounter Summary ---
Author Name [facility] [facility] Address [address] [place] [address] Care Team Providers Care Watch Assembly Inspector Name Role Phone NITHYA CASTILLO Primary Care [...] Name Patient's Relationship to Policy Perez [employer] [facility] (WNR) MEDICARE ADVANTAGE [facility] (WNR) Jul 05, 2022 [id number] [id number] JITENDRA MOON PATIENT Selected Encounter This section includes the information on record at [place] for the Encounter. Date/Time Encounter Type Encounter Description Reason Pro vider Source Nov 03, 2024 09:00 AM OFF/OP CNSLTJ NEW/EST LOW 30 GASTROENTEROLOGY ICD-10-CM R19.5 Other fecal abnormalities KITTY HEWITT Encounter Template Text not used by [facility] Assessments - Encounter Diagnoses This section includes the primary and secondary diagnoses documented for the Encounter. Date/Time Primary/Secondary Diagnosis Diagnosis Name Provider Source Nov 03, 2024 09:21 AM PRIMARY Other fecal abnormalities REJI HEWITT [facility] Nov 03, 2024 09:21 AM SECONDARY Change in bowel habit REJI HEWITT [facility] Plan of Treatment: Future Appointments (+ 6 months) and Future Tests (+/- 45 days) The Plan of Treatment section includes future care activities for the patient [facility] This section includes future appointments and future orders which are active, pending or scheduled. Future Appointments This section includes appointments that were scheduled to occur 6 months from the date of the Encounter, up to a maximum of 20 appointments. The data comes from all [facility]. Appointment Date/Time Appointment Type Appointme nt Facility Name Nov 09, 2024 08:00 AM AMBULATORY - SURGERY [facility] Dec 02, 2024 10:00 AM AMBULATORY - MEDICINE [facility] Dec 06, 2024 09:45 AM AMBULATORY - NONE [facility] Jan 05, 2025 09:00 AM AMBULATORY - MEDICINE [facility] Jan 11, 2025 08:30 AM AMBULATORY - MEDICINE [facility] Jan 13, 2025 11:00 AM AMBULATORY - MEDICINE [facility] February 23, 2025 01:00 PM AMBULATORY - MEDICINE [facility] Apr 13, 2025 02:00 PM AMBULATORY [facility] Active, Pending, and Scheduled Orders This section includes a listing of several types of active, pending, and scheduled orders, including clinic medications orders, diagnostic test orders, procedure orders and consult orders; where the start date of the order is 45 days before the date of the Encounter or 45 days after the date of theEncounter. The data comes from all [facility]. Test Date/Time Test Type Test Details Facility Name Nov 28, 2024 12:00 AM Laboratory - Chemi stry Order HEPATIC FUNTION PANEL (STL) GREEN LI/HEP BLD/PLAS PLASMA SP [facility] Lab Results: +/- 30 days of the encounter This section includes the Chemistry and Hematology Lab Results on record with [place] for the patient. Radiology Reports and Pathology Reports are provided separately, in subsequent sections. Lab Results This section contains the Chemistry/Hematology Results that were resulted 30 days before or 30 daysafter the date of the Encounter. Date/Time Source Result Type Result - Unit Interpretation Reference Range Specimen Type Comment Oct 17, 2024 10:05 AM [facility] URINALYSIS (STL-PB) URINE Specimen Type: URINE No comment entered. Ordering Provider: NITHYA CASTILLO Report Released Date/Time: Oct 14, 2024 12:15 PM Reporting Lab: [address] [id number] Performing Lab: [address] [address] URINE COLOR Colorless Yellow U.BILIRUBIN Negative mg/dL Negative U.PH 7.0 5.0-8.0 APPEARANCE Clear Clear U.NITRITE Negative mg/dL Negative URN.GLUCOSE Normal mg/dL Negative URN.PROTEIN Negative mg/dL URN.UROBILINOGEN Normal mg/dL Normal URN.BLOOD Negative mg/dL Negative-Trace URN.KETONES Negative mg/dL Negative-Trac e URN.LEUK.EST. Negative mg/dL Negative-Tr mere URN.SPECIFIC GRAVITY 1.004 L Oct 13, 2024 12:00 AM [facility] LIPID PANEL (STL) PLASMA Specimen Ty pe: PLASMA No comment entered. Ordering Provider: NITHYA CASTILLO Report Released Date/Time: Oct 12, 2024 02:07 PM Reporting Lab: [address] [address] Performing Lab: [address] [address] CHOLESTEROL 241 mg/dL H 0-200 TRIGLYCERIDE 111 mg/dL 0-150 CALCULATED LDL 171 mg/dL HDL(New) 48 mg/dL >40 Oct 13, 2024 12:00 AM [facility] PROST. SPECIFIC AG.(PB-STL) SERUM Specimen Ty pe: SERUM Comment: The listed sex of this patient may not be a typical indication for this test. Therefore, reference ranges or interpretive criteria listed may not be valid. Clinical correlation suggested. Ordering Provider: NITHYA CASTILLO Report Released Date/Time: Oct 12, 2024 02:07 PM Reporting Lab: [facility] [address] [facility] [address] Performing Lab: [address] [address] PROST. SPECIFIC AG.(PB-STL) 4.406 ng/mL 0-4 Pathology Reports: +/- 30 days of the [...] the Encounter. The data comes from all [facility] facilities. Date/Time Pathology Report Provider Source Oct 13, 2024 12:00 AM LR MICROBIOLOGY RE PORT: Accession [UID]: [id number] [[id number]] Received: Oct 13, 2024@17:49 Collection sample: STOOL Collection date: Oct 13, 2024 Site/Specimen: [facility] Provider: NITHYA CASTILLO Test(s) ordered: C&S STOOL..................... completed: Oct 16, 2024 14:31 * BACTERIOLOGY FINAL REPORT => Oct 16, 2024 14:55 TECH CODE: [id number] Bacteriology Remark(s): 1.07.29 KAA 10/15/24 [facility] CULTURE SHOWS HEAVY GROWTH USUAL ENTERIC JAY 10/16/24 [facility] CULTURE GREW USUAL ENTERIC JAY- NO ENTERIC PATHOGENS ISOLATED. NO Aeromonas, Campylobacter, E.coli 0157, Plesiomonas, Salmonella, Shigella, or Yersinia isolated. =--=--=--=--=--=--=--=--=--=--=-- =--=--=--=--=--=--=--=--=--=--=-- =--=--=--=-- Performing Laboratory: Bacteriology Report Performed By: [facility] JESSICA [address] [facility] CLIA# [id number] [address] [facility] [address] [place] [address] [facility] PRIN[facility] Encounter Notes: All associated encounter notes This section contains the clinical notes associated to the Encounter. Date/Time Encounter Note(s) Provider Source Nov 03, 2024 08:54 AM GASTROENTEROLOGY C ONSULT: LOCAL TITLE: GASTROENTEROLOGY OUTPATIENT CONSULT [facility] STANDARD TITLE: GASTROENTEROLOGY CONSULT DATE OF NOTE: NOV 03, 2024@08:54 ENTRY DATE: NOV 03, 2024@08:55:03 AUTHOR: EARLE HEWITT COSIGNER: URGENCY: STATUS: COMPLETED Modality of Care: Clinical Video Telehealth Visit conducted by Clinical Video Telehealth. Patient/surrogate provided verbal consent for video telehealth. Patient location confirmed. Emergency number confirmed. [facility] Informed Consent: Group Telehealth Agreement Form with Confidentiality, Risks and Consequences, Privacy, Dignity and Behavior, was reviewed and participants orally consented to those conditions to participate in this [facility] Group Visit. Kendy is a 69 year old [place] who was referred to GI for + FIT. Patient denies prior colonoscopy. He reports routine cologuard testing always negative. GI ROS: Currently denies blood in stool, BRBPR. + change in bowel habits over the last several months described as loose stool. Reports he had negative stool testing and it seems to be better, but stools have not returned to normal. Denies abdominal or rectal pain. ROS: General: denies weight loss Neuro: denies dizziness/LOC Cardio: denies chest pain Respiratory: + BAPTISTE, stable No recent hospitalizations. Past Medical History: 1) HTN - Hypertension ([facility] [id number]) 2) COPD - Chronic Obstructive Pulmonary Disease ([facility] [id number]) 3) Erectile Dysfunction ([facility] [id number]) 4) Ex-tobacco user 5) Current drinker 6) Exposure to potentially hazardous substance ([facility] [id number]) 7) Depression Pertinent Surgical History: denies prior abd surgeries Medication list was reviewed with the patient or care-pet caregiver, any discrepancies were resolved. On the following Active Medications: Active Outpatient Medications (including Supplies): Active Outpatient Medications Status 1) ALBUTEROL 90MCG (CFC-F) 200D ORAL INHL INHALE 2 PUFFS ORAL ACTIVE INHALATION FOUR TIMES A DAY NEEDED SHAKE WELL. RINSE MOUTHPIECE FREQUENTLY TO PREVENT CLOGGING. Indication: FOR COPD 2) ATORVASTATIN CALCIUM 40MG TAB TAKE ONE-HALF TABLET BY MOUTH ACTIVE EVERY EVENING Indication: FOR HIGH CHOLESTEROL 3) LISINOPRIL 40MG TAB TAKE ONE-HALF TABLET BY MOUTH ONCE A DAY ACTIVE Indication: FOR HIGH BLOOD PRESSURE 4) OLODATEROL/TIOTROP 2.5MCG/ACTUAT 60D INH INHALE 2 PUFFS BY ACTIVE ORAL INHALATION ONCE A DAY ADMINISTER AT SAME TIME EACH DAY Indication: FOR COPD 5) SERTRALINE HCL 100MG TAB TAKE ONE TABLET BY MOUTH EVERY ACTIVE MORNING Indication: FOR DEPRESSION 6) TADALAFIL 20MG TAB TAKE ONE TABLET BY MOUTH EVERY WEEK ACTIVE NEEDED (TAKE 30 MINUTES PRIOR TO SEXUAL ACTIVITY) - LIMIT 18 DOSES PER 90 DAYS Indication: FOR ERECTILE DYSFUNCTION Allergies Reported: Patient has answered NKA Social History: Tobacco use- quit 2015 ETOH- 3 drinks per week Illicit drugs- denies Pertinent Family History: denies FH of colon ca. Most Recent Labs: WBC:5.2 10*3/uL (09/19/24 09:52) RBC:5.01 10*6/uL (09/19/24 09:52) HGB:HGB 15.2 g/dL 09/19/2024 09:52 HCT:44.5 % (09/19/24 09:52) PLT:PLT 247 10*3/uL 09/19/2024 09:52 Hemoccult: OCCULT BLOOD (FIT) #1 OF 1 POSITIVE H* 09/19/2024 11:00 Diagnosis: + FIT, change in bowel habits Hx significant for: HTN, hyperlipidemia, COPD, depression Assessment/Plan: Discussed ddx of + FIT and indication for a colonoscopy. Explained colonscopy prep/procedure and discussed sedation. Reminded patient that they must have a auto haulaway driver to bring them to the appointment and take them home. Pt reports he has medicare and might try and get the colonoscopy done closer to home as long as he is able to get it done in a timely manner. Pt was provided with my contact information and will call to let me know if he is going [facility]. Pt not currently taking anticoagulants that need to be held prior to testing. All questions answered. Pt was agreeable to this plan. Time spent on encounter, including time spent speaking with the pt, chart review, and placing orders: 25 minutes /delmy/ EARLE HEWITT PAC PHYSICIAN CORE MAN GI Signed: 11/03/2024 09:21 Receipt Acknowledged By: 11/10/2024 13:58 /delmy/ NITHYA CASTILLO, MSN, AGNP-C NURSE PRACTITIONER [facility]
--- OUTSIDE RECORDS SUMMARY | 2025-02-02 09:39 | XMS_ITS | Encounter Summary ---
Author Name [facility] [place] [facility] [place] Address [address] [place] [id number] Care Team Providers Care Denture Finisher Name Role Phone JONATHAN NITHYA Primary Care Provider Unavailab le Insurance Providers: [...] Name Patient's Relationship to Policy Perez [employer] [facility] (WNR) MEDICARE ADVANTAGE [facility] (WNR) Jul 05, 2022 [id number] [id number] JITENDRA MOON PATIENT Selected Encounter This section includes the information on record at [place] for the Encounter. Date/Time Encounter Type Encounter Description Reason Provider Source Nov 09, 2024 08:00 AM OFFICE O/P NEW LOW 30 MIN UROLOGY CLINIC ICD-10-CM R97.21 Rising PSA fol treatment for malignant neoplasm of prostate MARIZA GAMBOA Encounter Template Text not used by [facility] Assessments - Encounter Diagnoses This section includes the primary and secondary diagnoses documented for the Encounter. Date/Time Primary/Secondary Diagnosis Diagnosis Name Provider Source Nov 09, 2024 10:48 PM PRIMARY Rising PSA fol treatment for malignant neoplasm of prostate GAMBOA,AND [facility] Nov 09, 2024 10:48 PM SECONDARY Male erectile dysfunction, unspecified GAMBOA,AND [facility] Plan of Treatment: Future Appointments (+ 6 months) and Future Tests (+/- 45 days) The Plan of Treatment section includes future care activities for the patient from all [place] [facility] This section includes future appointments and future orders which are active, pending or scheduled. Future Appointments This section includes appointments that were scheduled to occur 6 months from the date of the Encounter, up to a maximum of 20 appointments. The data comes from all [facility]. Appointment Date/Time Appointment Type Appointme nt Facility Name Dec 02, 2024 10:00 AM AMBULATORY - MEDICINE [facility] Dec 06, 2024 09:45 AM AMBULATORY - [facility] Jan 05, 2025 09:00 AM AMBULATORY - MEDICINE [facility] Jan 11, 2025 08:30 AM AMBULATORY - MEDICINE [facility] Jan 13, 2025 11:00 AM AMBULATORY - MEDICINE [facility] February 23, 2025 01:00 PM AMBULATORY - [facility] Apr 13, 2025 02:00 PM AMBULATORY - [facility] Active, Pending, and Scheduled Orders This section includes a listing of several types of active, pending, and scheduled orders, including clinic medications orders, diagnostic test orders, procedure orders and consult orders; where the start date of the order is 45 days before the date of the Encounter or 45 days after the date of theEncounter. The data comes from all [facility]. Test Date/Time Test Type Test Details Facility Name Nov 28, 2024 12:00 AM Laboratory - Chemi stry Order HEPATIC FUNTION PANEL (STL) GREEN LI/HEP BLD/PLAS PLASMA SP [facility] Lab Results: +/- 30 days of the encounter This section includes the Chemistry and Hematology Lab Results on record with [facility] for the patient. Radiology Reports and Pathology Reports are provided separately, in subsequent sections. Lab Results This section contains the Chemistry/Hematology Results that were resulted 30 days before or 30 daysafter the date of the Encounter. Date/Time Source Result Type Result - Unit Interpretation Reference Range Specimen Type Comment Oct 17, 2024 10:05 AM [facility] URINALYSIS (STL-PB) URINE Specimen Type: URINE No comment entered. Ordering Provider: NITHYA CASTILLO Report Released Date/Time: Oct 14, 2024 12:15 PM Reporting Lab: [address] [address] Performing Lab: [address] [address] URINE COLOR Colorless Yellow U.BILIRUBIN Negative mg/dL Negative U.PH 7.0 5.0-8.0 APPEARANCE Clear Clear U.NITRITE Negative mg/dL Negative URN.GLUCOSE Normal mg/dL Negative URN.PROTEIN Negative mg/dL URN.UROBILINOGEN Normal mg/dL Normal URN.BLOOD Negative mg/dL Negative-Trace URN.KETONES Negative mg/dL Negative-Trac e URN.LEUK.EST. Negative mg/dL Negative-Tr mere URN.SPECIFIC GRAVITY 1.004 L Oct 13, 2024 12:00 AM [facility] LIPID PANEL (STL) PLASMA Specimen Ty pe: PLASMA No comment entered. Ordering Provider: NITHYA CASTILLO Report Released Date/Time: Oct 12, 2024 02:07 PM Reporting Lab: [address] [address] Performing Lab: [address] [address] CHOLESTEROL 241 mg/dL H 0-200 TRIGLYCERIDE 111 mg/dL 0-150 CALCULATED LDL 171 mg/dL HDL(New) 48 mg/dL >40 Oct 13, 2024 12:00 AM [facility] PROST. SPECIFIC AG.(PB-STL) SERUM Specimen Ty pe: SERUM Comment: The listed sex of this patient may not be a typical indication for this test. Therefore, reference ranges or interpretive criteria listed may not be valid. Clinical correlation suggested. Ordering Provider: NITHYA CASTILLO Report Released Date/Time: Oct 12, 2024 02:07 PM Reporting Lab: [address] [address] Performing Lab: [facility] [address] [facility] [address] PROST. SPECIFIC AG.(PB-STL) 4.406 ng/mL HH 0-4 Vital Signs: All taken on the encounter date This section contains inpatient and outpatient Vital Signs collected on the date of the Encounter. Date/Time Temperature Pulse Blood Pressure Respiratory Rate SP02 Pain Height Weight Body Mass Index Source Nov 09, 2024 07:49 AM 97.3 67 151/79 18 98 0 70.5 168.1 24 [facility] N Radiology Reports: [...] the Encounter. The data comes from all [place] treatment facilities. Date/Time Radiology Report Provider Source Dec 06, 2024 01:30 PM MRI PROSTATE W&W/O CONTRAST: JITENDRA MOON [id number] -[id number] M Exm Date: DEC 06, 2024@13:30 Req Phys: CHRISTIANO GAMBOA Loc: [facility] 1 (Req'g Loc) Img Loc: OUTSIDE [facility] Service: Unknown (Case [id number] COMPLETE) MRI PROSTATE W&W/O CONTRAST (MRI Detailed) CPT:01559 Reason for Study: OUTSIDE EXAM Clinical History: OUTSIDE EXAM Report Status: Electronically Filed Date Reported: DEC 08, 2024 Report: This study was performed outside the [place] in another facility and images were uploaded into [email or web address]. The report has been scanned into [employer]. In order to upload images a case number was needed, therefore this is an administrative report. Impression: This study was performed outside the [place] in another facility and images were uploaded into [email or web address]. The report has been scanned into [employer]. In order to upload images a case number was needed, therefore this is an administrative report VERIFIED BY: / *ELECTRONICALLY FILED* [facility] Pathology Reports: +/- 30 days of the [...] the Encounter. The data comes from all [place] treatment facilities. Date/Time Pathology Report Provider Source Oct 13, 2024 12:00 AM LR MICROBIOLOGY RE PORT: Accession [UID]: [id number] [[id number]] Received: Oct 13, 2024@17:49 Collection sample: STOOL Collection date: Oct 13, 2024 Site/Specimen: [facility] Provider: NITHYA CASTILLO Test(s) ordered: C&S STOOL..................... completed: Oct 16, 2024 14:31 * BACTERIOLOGY FINAL REPORT => Oct 16, 2024 14:55 TECH CODE: [id number] Bacteriology Remark(s): 1.. KAA 10/15/24 [facility] CULTURE SHOWS HEAVY GROWTH USUAL ENTERIC JAY 10/16/24 [facility] CULTURE GREW USUAL ENTERIC JAY- NO ENTERIC PATHOGENS ISOLATED. NO Aeromonas, Campylobacter, E.coli 0157, Plesiomonas, Salmonella, Shigella, or Yersinia isolated. =--=--=--=--=--=--=--=--=--=--=-- =--=--=--=--=--=--=--=--=--=--=-- =--=--=--=-- Performing Laboratory: Bacteriology Report Performed By: [facility]FIQ [address] [facility] CLIA# [id number] [address] [facility] [address] [place] [address] PARMJIT PRINCE [facility] Encounter Notes: All associated encounter notes This section contains the clinical notes associated to the Encounter. Date/Time Encounter Note(s) Provider Source Jan 05, 2025 10:42 AM ADDENDUM: LOCAL TITLE: Addendum STANDARD TITLE: ADDENDUM DATE OF NOTE: JAN 05, 2025@10:42:26 ENTRY DATE: JAN 05, 2025@10:42:28 AUTHOR: SARAH COKER COSIGNER: URGENCY: STATUS: COMPLETED Dr. Ann seen in pul clinic today. Had outside MRI at [facility] on 12/06/24 for elevated PSA. Results in [place]. Scheduled for f/u in urology in March. Pt asking for someone in urology to review test findings with him. Thank you. /delmy/ SARAH COKER PHYSICIAN DRUG SAFETY ASSOCIATE Signed: 01/05/2025 10:45 Receipt Acknowledged By: 01/05/2025 11:03 /delmy/ CHRISTIANO GAMBOA MD Staff Physician, Urology === --- Original Document --- 11/08/24 UROLOGY CONSULT STL: CHIEF COMPLAINT, HPI, EXAM & DATA CC: elevated PSA HPI: 69 yo M with hx of HTN and COPD referred for elevated PSA. - PSA trend as below, most recent 4.4 (10/2024) - currently prescribed tadalafil for ED with good effect - notes mild LUTS with minimal bother - denies hematuria, dysuria, UTIs, negative UA on 10/17 - not currently taking any meds for BPH - denies prior pMRI or TRUS, no axial pelvic imaging available - denies FH of CaP, former smoker ROS/PMH Denies F/C/N/V/CP/SOB Remainder of PMH listed below and reviewed? Yes TARGETED PHYSICAL EXAM: Gen: NAD HEENT: NC/AT Resp: NLB Abd: s/nt/nd, no rebound or guarding Back: No CVAT bilaterally Ext: WWP MSK: SANDI Neuro: non-focal Skin: warm and dry : deferred CREATININE:CREATININE 1.01 mg/dL 09/19/2024 09:52 PSA: PROST. SPECIFIC AG.(PB-STL) 4.406 H* ng/mL 10/13/2024 00:00 AKIRA BRADY AND PLAN ----- 69 yo M with hx of HTN, COPD and ED presents with elevated PSA. FOLLOW-UP: - CC referral for pMRI - RTC in 2-3 months with repeat PSA to discuss pMRI results (MORE INFORMATION) ---- * LABS---- PSA Trend: PROST. SPECIFIC AG.(PB-STL) 4.406 H* ng/mL 10/13/2024 00:00 PROST. SPECIFIC AG.(PB-STL) 4.123 H* ng/mL 04/15/2024 10:10 BMP: SODIUM 137 mEq/L 09/19/2024 09:52 POTASSIUM 4.1 mEq/L 09/19/2024 09:52 CHLORIDE 103 mEq/L 09/19/2024 09:52 UREA NITROGEN 7.9 L mg/dL 09/19/2024 09:52 CREATININE 1.01 mg/dL 09/19/2024 09:52 CALCIUM 9.4 mg/dL 09/19/2024 09:52 CARBON DIOXIDE 25 mEq/L [...] 09:52 BASOPHILS, ABSOLUTE 0.02 10*3/uL 09/19/2024 09:52 UA: URINE COLOR Colorless 10/17/2024 10:05 APPEARANCE Clear 10/17/2024 10:05 U.PH 7.0 10/17/2024 10:05 U.BILIRUBIN Negative mg/dL 10/17/2024 10:05 U.NITRITE Negative mg/dL 10/17/2024 10:05 PAST MEDICAL, SOCIAL, FAMILY HX AND ROS 1) HTN - Hypertension ([facility] [id number]) 2) COPD - Chronic Obstructive Pulmonary Disease ([facility] [id number]) 3) Erectile Dysfunction ([facility] [id number]) 4) Ex-tobacco user 5) Current drinker 6) Exposure to potentially hazardous substance ([facility] [id number]) 7) Depression MEDICATIONS: Active Outpatient Medications (including Supplies): Active Outpatient Medications Status === 1) ALBUTEROL 90MCG (CFC-F) 200D ORAL INHL [...] PER 90 DAYS Indication: FOR ERECTILE DYSFUNCTION Allergies: Patient has answered NKA /es/ CHRISTIANO GAMBOA MD Staff Physician, Urology Signed: 11/09/2024 22:48 SARAH COKER [facility] Nov 08, 2024 09:08 PM UROLOGY CONSULT: LOCAL TITLE: UROLOGY CONSULT ST STANDARD TITLE: UROLOGY CONSULT DATE OF NOTE: NOV 08, 2024@21:08 ENTRY DATE: NOV 08, 2024@21:08:18 AUTHOR: CHRISTIANO GAMBOA EXP COSIGNER: URGENCY: STATUS: COMPLETED UROLOGY CONSULT ST Has ADDENDA CHIEF COMPLAINT, HPI, EXAM & DATA CC: elevated PSA HPI: 69 yo M with hx of HTN and COPD referred for elevated PSA. - PSA trend as below, most recent 4.4 (10/2024) - currently prescribed tadalafil for ED with good effect - notes mild LUTS with minimal bother - denies hematuria, dysuria, UTIs, negative UA on 10/17 - not currently taking any meds for BPH - denies prior pMRI or TRUS, no axial pelvic imaging available - denies FH of CaP, former smoker ROS/PMH Denies F/C/N/V/CP/SOB Remainder of PMH listed below and reviewed? Yes TARGETED PHYSICAL EXAM: Gen: NAD HEENT: NC/AT Resp: NLB Abd: s/nt/nd, no rebound or guarding Back: No CVAT bilaterally Ext: WWP MSK: MAEW Neuro: non-focal Skin: warm and dry : deferred CREATININE:CREATININE 1.01 mg/dL 09/19/2024 09:52 PSA: PROST. SPECIFIC AG.(PB-STL) 4.406 H* ng/mL 10/13/2024 00:00 ASSES SMENT AND PLAN ----- 69 yo M with hx of HTN, COPD and ED presents with elevated PSA. FOLLOW-UP: - CC referral for pMRI - RTC in 2-3 months with repeat PSA to discuss pMRI results (MORE INFORMATION) ---- * LABS---- PSA Trend: PROST. SPECIFIC AG.(PB-STL) 4.406 H* ng/mL 10/13/2024 00:00 PROST. SPECIFIC AG.(PB-STL) 4.123 H* ng/mL 04/15/2024 10:10 BMP: SODIUM 137 mEq/L 09/19/2024 09:52 POTASSIUM 4.1 mEq/L 09/19/2024 09:52 CHLORIDE 103 mEq/L 09/19/2024 09:52 UREA NITROGEN 7.9 L mg/dL 09/19/2024 09:52 CREATININE 1.01 mg/dL 09/19/2024 09:52 CALCIUM 9.4 mg/dL 09/19/2024 09:52 CARBON DIOXIDE 25 mEq/L [...] 09:52 BASOPHILS, ABSOLUTE 0.02 10*3/uL 09/19/2024 09:52 UA: URINE COLOR Colorless 10/17/2024 10:05 APPEARANCE Clear 10/17/2024 10:05 U.PH 7.0 10/17/2024 10:05 U.BILIRUBIN Negative mg/dL 10/17/2024 10:05 U.NITRITE Negative mg/dL 10/17/2024 10:05 PAST MEDICAL, SOCIAL, FAMILY HX AND ROS 1) HTN - Hypertension ([facility] [id number]) 2) COPD - Chronic Obstructive Pulmonary Disease ([facility] [id number]) 3) Erectile Dysfunction ([facility] [id number]) 4) Ex-tobacco user 5) Current drinker 6) Exposure to potentially hazardous substance ([facility] [id number]) 7) Depression MEDICATIONS: Active Outpatient Medications (including Supplies): Active Outpatient Medications Status === 1) ALBUTEROL 90MCG (CFC-F) 200D ORAL INHL [...] PER 90 DAYS Indication: FOR ERECTILE DYSFUNCTION Allergies: Patient has answered NKA /delmy/ CHRISTIANO GAMBOA MD Staff Physician, Urology Signed: 11/09/2024 22:48 01/05/2025 ADDENDUM STATUS: COMPLETED Dr. Ann [place] seen in pulm clinic today. Had outside MRI at [facility] on 12/06/24 for elevated PSA. Results in [place]. Scheduled for f/u in urology in March. Pt asking for someone in urology to review test findings with him. Thank you. /delmy/ SARAH COKER PHYSICIAN DRUG SAFETY ASSOCIATE Signed: 01/05/2025 10:45 Receipt Acknowledged By: * AWAITING SIGNATURE * CHRISTIANO GAMBOA [facility] [place] [facility]
--- OUTSIDE RECORDS SUMMARY | 2025-02-02 09:39 | XMS_ITS ---
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 Date/Time Encounter Type Encounter Description Reason Provider Source Jan 11, 2025 08:30 AM PT EDUCATION NOC INDIVID PULMONARY/CHEST ICD-10-CM Z12.2 Encntr screen for malignant neoplasm of respiratory organs ZAC ABREU Encounter Template Text not used by [facility] Assessments - Encounter Diagnoses This section includes the primary and secondary diagnoses documented for the Encounter. Date/Time Primary/Secondary Diagnosis Diagnosis Name Provider Source Jan 11, 2025 08:59 AM PRIMARY Encntr screen for malignant neoplasm of respiratory organs [facility] Jan 11, 2025 08:59 AM SECONDARY Personal history of nicotine dependence [facility] Plan of Treatment: Future Appointments (+ 6 months) and Future Tests (+/- 45 days) The Plan of Treatment section includes future care activities for the patient from all [place] treatmentfaunc health rexities. This section includes future appointments and future orders which are active, pending or scheduled. Future Appointments This section includes appointments that were scheduled to occur 6 months from the date of the Encounter, up to a maximum of 20 appointments. The data comes from all [facility]. Appointment Date/Time Appointment Type Appointme nt Facility Name Jan 13, 2025 11:00 AM AMBULATORY - MEDICINE [facility] February 23, 2025 01:00 PM AMBULATORY - MEDICINE [facility] Apr 13, 2025 02:00 PM AMBULATORY - MEDICINE [facility] Jun 02, 2025 10:30 AM AMBULATORY - SURGERY [facility] Active, Pending, and Scheduled Orders This section includes a listing of several types of active, pending, and scheduled orders, including clinic medications orders, diagnostic test orders, procedure orders and consult orders; where the start date of the order is 45 days before the date of the Encounter or 45 days after the date of theEncounter. The data comes from all [facility]. Test Date/Time Test Type Test Details Facility Name Nov 28, 2024 12:00 AM Laboratory - Chemi stry Order HEPATIC FUNTION PANEL (STL) GREEN LI/HEP BLD/PLAS PLASMA SP [facility] Jan 05, 2025 10:34 AM Procedure Order PFT PROCED URE [place] PULMONARY FUNCTION TEST (PFT) OUTPT [facility] Proc Bomb Squad Officer's Choice [facility] Lab Results: +/- 30 days of the encounter This section includes the Chemistry and Hematology Lab Results on record with [place] for the patient. Radiology Reports and Pathology Reports are provided separately, in subsequent sections. Lab Results This section contains the Chemistry/Hematology Results that were resulted 30 days before or 30 daysafter the date of the Encounter. Date/Time Source Result Type Result - Unit Interpretation Reference Range Specimen Type Comment Jan 13, 2025 12:00 AM [facility] LIPID PANEL (STL) PLASMA Specimen Type: PLASMA No comment entered. Ordering Provider: NITHYA CASTILLO Report Released Date/Time: Oct 14, 2024 02:56 PM Reporting Lab: [facility] [address] [facility] [id number] Performing Lab: [facility] [address] [facility] [id number] CHOLESTEROL 160 mg/dL 0-200 TRIGLYCERIDE 94 mg/dL 0-150 CALCULATED LDL 93 mg/dL HDL(New) 48 mg/dL >40 Jan 13, 2025 12:00 AM [facility] PROST. SPECIFIC AG.(PB-STL) SERUM Specimen Ty pe: SERUM Comment: The listed sex of this patient may not be a typical indication for this test. Therefore, reference ranges or interpretive criteria listed may not be valid. Clinical correlation suggested. Ordering Provider: CHRISTIANO GAMBOA Report Released Date/Time: Jan 05, 2025 05:42 PM Reporting Lab: [facility] [address] [facility] [phone] Performing Lab: [facility] [address] [facility] [id number] PROST. SPECIFIC AG.(PB-STL) 4.366 ng/mL HH 0-4 Encounter Notes: All associated encounter notes This section contains the clinical notes associated to the Encounter. Date/Time Encounter Note(s) Provider Source Jan 11, 2025 08:31 AM CONSULT: LOCAL TITLE: LUNG CANCER SCREENING CONSULT STL STANDARD TITLE: CONSULT DATE OF NOTE: JAN 11, 2025@08:31 ENTRY DATE: JAN 11, 2025@08:31:40 AUTHOR: ZAC ABREU EXP COSIGNER: URGENCY: STATUS: COMPLETED LUNG CANCER SCREENING OUTPATIENT CLINIC NOTE JAN 11, 2025 [place] identified by full name, SSN, and . This is a PHONE visit. Reason for visit/CC: LCS Consult; LCS Shared Decision making HPI: This is a 69 year old MALE with history of HTN, HLD, GERD, COPD, tobacco use. [facility] provider consulted Lung Cancer Screening to enroll [place]. [place] previously completed LDCT for LCS ordered by PCP. Most recent LDCT completed 05/2024 demonstrated sub-6mm pulmonary nodules; LungRADS 2. A one year f/u LDCT was recommended. Mr. Larry denies recent fever/illness, new/changing cough, hemoptysis, unintentional weight loss. He is prescribed albuterol MDI (reports using 1-2x/day) and Stiolto once daily. Most recent PFT 07/2024 demonstrated minimal obstructive abnormality that did not improve after inhaled bronchodilator. He endorses moderate activity. SOB does not hinder his daily activity. [place] reports he quit smoking 8 years ago. I discussed with Amanda that quitting smoking is one of the best ways to improve/maintain his health. We discussed Amanda's smoking history including quit attempts in the past. He started smoking around age 19, 0.5-1ppd; 42 years (approx 31 py hx). I educated Amanda on the different modalities of treatment to aide smoking cessation. Congratulated on cessation and encouraged continued cessation. I encouraged him to contact myself or their PCP with any questions related to smoking cessation and/or interest in smoking cessation. Amadna is eligible and agrees to continue lung cancer screening after shared decision making discussion with Lung Cancer Screening Coordinator. Lung Cancer Screening Risk Calculator estimates his/her risk: 2.86% * Low dose CT Chest will be ordered. * Discussed potential benefits of lung cancer screening: - Reduce mortality from lung cancer - Screening looks for disease before you have symptoms. It can help find lung cancer in an earlier, more treatable stage. * Discussed potential harms of lung cancer screening: - Anxiety and stress from false-positive results - Complications from invasive procedures if an abnormality is found - The low-dose radiation from lung cancer screening increases your risk of developing cancer years later by a small amount. * Discussed possibility of overdiagnosis: - Potentially finding a lung cancer that would have never been a clinical problem * Discussed other issues: - Impact of comorbidities on screening: The benefit is reduced in patients in poor health - Patients' willingness and/or ability to undergo invasive diagnostic procedures/treatments should results warrant further follow-up. - Quitting smoking is the most important thing you can do to lower your chance of dying from a variety of disease, not just lung cancer. 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 Current Medications: Active Outpatient Medications (including Supplies): ALBUTEROL 90MCG (CFC-F) 200D ORAL INHL INHALE 2 PUFFS ORAL ACTIVE INHALATION FOUR TIMES A DAY NEEDED SHAKE WELL. RINSE MOUTHPIECE FREQUENTLY TO PREVENT CLOGGING. Indication: FOR COPD ATORVASTATIN CALCIUM 40MG TAB TAKE ONE-HALF TABLET BY ACTIVE MOUTH EVERY EVENING Indication: FOR HIGH CHOLESTEROL LISINOPRIL 40MG TAB TAKE ONE-HALF TABLET BY MOUTH ONCE A ACTIVE DAY Indication: FOR HIGH BLOOD PRESSURE OLODATEROL/TIOTROP 2.5MCG/ACTUAT 60D INH INHALE 2 PUFFS BY ACTIVE (S) ORAL INHALATION ONCE A DAY ADMINISTER AT SAME TIME EACH DAY Indication: FOR COPD SERTRALINE HCL 100MG TAB TAKE ONE TABLET BY MOUTH EVERY ACTIVE MORNING Indication: FOR DEPRESSION TADALAFIL 20MG TAB TAKE ONE TABLET BY MOUTH EVERY WEEK ACTIVE NEEDED (TAKE 30 MINUTES PRIOR TO SEXUAL ACTIVITY) - LIMIT 18 DOSES PER 90 DAYS Indication: FOR ERECTILE DYSFUNCTION All meds were reviewed/reconciled with patient. Patient verbalizes taking medications as prescribed. Inhaler use per patient: n/a REVIEW OF SYSTEMS: Constitutional: Denies weight loss/weight gain; Denies fevers, night sweats HEENT: Denies frequent headaches; Denies blurred vision, diplopia; Denies difficulty hearing; Denies epistaxis, rhinorrhea, dysphagia Respiratory: Denies chronic cough; Denies dyspnea on exertion, SOB, orthopnea CV: Denies chest pain, palpitations, dizziness : denies hematuria Diagnostic data: Most recent PFT DATA: 07/06/24 --SPIROMETRY-- ACTUAL (%PRED) FVC (L) : 5.23 (114%) FEV1 (L): 3.27 (96%) FEV1/FVC: 63 (83%) --LUNG VOLUMES--(%PRED) RV(L) : 109% TLC(L): 118% DLCO: 59% Bronchodilator Response: - 6MW: NO DATA REPORTED Labs: No BRAIN NATRIURETIC PEPTIDE data found SODIUM 137 mEq/L 09/19/2024 09:52 POTASSIUM 4.1 [...] 09:52 EGFR (CKD-EPI 2020) 81.5 09/19/2024 09:52 WBC 5.2 10*3/uL 09/19/2024 09:52 RBC 5.01 [...] 09:52 BASOPHILS, ABSOLUTE 0.02 10*3/uL 09/19/2024 09:52 PROST. SPECIFIC AG.(PB-STL) 4.406 H* ng/mL 10/13/2024 00:00 ____ No PTT EO data found No INR EO data found Imaging: CXR: No Impressions found No data available for: LDCT LCS 1, 3 OR 6 MONTH FOLLOW UP ZZLDCT LUNG CANCER SCREENING LDCT LUNG CANCER SCREENING Assessment and Plan: #Lung Cancer Screening #Right perifissural nodules, small, 5.1mm -most recent LDCT 05/2024 stable; LungRADS 2 -SDM completed -CPY hx up to date - enrolled in LCS/added to platform -annual LDCT ordered for 05/2025 #Personal History of Tobacco Use, former smoker- - is not interested in quitting at this time -Informed that quitting smoking is one of the best things to improve and maintain health -Congratulated on continued cessation -Education provided regarding tobacco use, specifically multifactorial health risks, including but limited to Lung Cancer, Stroke, NC, Poor Wound Healing -Education provided on available smoking cessation treatments including OTC and/or prescription medications, and/or counseling -Self-referring resources provided to [place]: *[facility] SMOKING CESSATION PROGRAM: [phone] *[phone] ( ) RTC: as needed All patients are counseled on the risks of smoking at every visit including patients with no history of smoking in order to dissuade them from starting the use of tobacco products; former smokers to minimize recidivism of nicotine dependence; and current smokers in an effort to help them cease the use of nicotine products. HEALTH PROMOTION/HEALTH MAINTENANCE & EDUCATION DISEASE: Discussed treatment options & counseled on exacerbating factors. DIAGNOSTIC TESTING AND LABORATORY DATA: Pertinent labs and diagnostic tests (both normal and abnormal) are included above and were reviewed and discussed with the patient within 7-days of the test and during this visit. DISEASE: Coordinated care; discussed treatment options, & counseled on exacerbating factors. - Encouraged participation in regular exercise program 3-5 days/week - Discussed at length about lifestyle modifications in regard to diet, exercise, and medication compliance. - Assessed smoking habits and whether actively using tobacco products or a past history of nicotine dependence, smoking cessation strategies were reinforced. The patient verbalized understanding of information regarding: labs, meds, and plans for care. Time Spent: 30 minutes Thank you for allowing me to participate in this patient's care. Please don't hesitate to call with any questions or concerns. The patient previously used cigarettes and quit smoking less than 15 years ago. Year the patient quit smoking: Date: 2012 ? Exact date is unknown How many years have you smoked cigarettes? # of years: 42 Average number of packs/day over the entire time patient smoked: Packs/day: 0.75 Lung Cancer Screening Patient Management *REPEAT ANNUAL SCREENING* - remains eligible for lung cancer screening based on age, smoking history and the absence of signs or symptoms of lung cancer. - informed of the interventions to reduce the risk of dying from lung cancer, including quitting smoking and annual lung cancer screening. - informed of the potential harms of screening including: false positives and false negatives, follow-up diagnostic testing, over-diagnosis and radiation exposure. - counseled on the importance of adherence to annual lung cancer LDCT screening, impact of comorbidities and ability or willingness to undergo diagnosis and treatment. - After shared decision making discussion, has agreed to lung cancer screening. Decision aid reviewed with patient. /delmy/ ZAC ABREU DNP, STORE CLERK, AGNP- NURSE PRACTITIONER-LUNG CANCER SCREENING Signed: 01/11/2025 09:00 ZAC ABREU [facility]
--- OUTSIDE RECORDS SUMMARY | 2025-02-02 09:39 | XMS_ITS | Encounter Summary ---
Author Organization [facility] Address [address] [place] [address] Phone Care Team Providers Care Medical I D Sales Name Role Phone Checo Baez MD Primary Care Provider [phone] Reason for Visit * Reason Comments Medication Refill Encounter Details Date Type Department Care Team ([facility] st Contact Info) Description 11/27/2022 Refill [facility] - Family Medicine [facility] [address] [place] [address] Checo Baez MD [address] [address] Medication Refill Social History Tobacco Use Types [...] encounter Miscellaneous Notes * Telephone Encounter - Alanna Villegas RN - 11/27/2022 11:55 AM 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 Requested Prescriptions Pending Prescriptions Disp Refills lisinopril (IVIL ZESTRIL) 20 MG Tablet [Pharmacy Med Name: LISINOPRIL 20 MG TABLET] 30 Tablet 4 Sig: TAKE 1 TABLET BY MOUTH EVERY DAY MARIA A Inhibitors Protocol Failed - 11/27/2022 11:31 AM Failed - Serum potassium on record in past 12 months No results found for: POTASSIUM, POCTK Failed - GFR on record in past 12 months No results found for: GFRNA Passed - Blood pressure on record in past 12 months Clinician-entered: BP Readings from Last 3 Encounters: 07/15/22 132/82 12/27/21 110/68 06/21/21 122/86 Patient-entered: No data recorded Passed - Visit with relevant provider in past 12 months or upcoming 90 days Recent Visits Date Type Provider Dept 07/15/22 Office Visit Checo Baez MD [facility] 12/27/21 Office Visit Checo Baez MD [facility] Showing recent visits within past 365 days and meeting all other requirements Future Appointments Date Type Provider Dept 01/13/23 Appointment Checo Baez MD [facility] Showing future appointments within next 90 days and meeting all other requirements ET PROFESSOR documented in this encounter Plan of Treatment Not on file documented as of this encounter Visit Diagnoses Not on filedocumented in this encounter Additional Health Concerns Assessment Noted Time PHQ-9 Depression Total Score: 0 06/21/20 21 8:00 AM CDT documented as of this encounter Care Teams Medical I D Sales Relationship Specialty Start Date End Date Checo Baez MD [address] [address] PCP - General Family Medicine 09/05/15 documented as of this encounter
--- OUTSIDE RECORDS SUMMARY | 2025-02-02 09:39 | XMS_ITS | Encounter Summary ---
Author Name [facility] Organization [facility] Address [address] [place] [address] Care Team Providers Care Sleeping Bag Filler Name Role Phone NITHYA CASTILLO Primary Care [...] Name Patient's Relationship to Policy Perez [employer] [facility] (WNR) MEDICARE ADVANTAGE [facility] (WNR) Jul 05, 2022 [id number] JITENDRA MOON PATIENT Selected Encounter This section includes the information on record at [place] for the Encounter. Date/Time Encounter Type Encounter Description Reason Provider Source Jun 17, 2024 01:00 PM PSYTX W PT 30 MINUTES PCMHI INDIV ICD-10-CM F33.0 Major depressive disorder, recurrent, mild MARS,MELLO IHE Encounter Template Text not used by [facility] Assessments - Encounter Diagnoses This section includes the primary and secondary diagnoses documented for the Encounter. Date/Time Primary/Secondary Diagnosis Diagnosis Name Provider Source Jun 23, 2024 08:24 PM PRIMARY Major depressive disorder, recurrent, mild MARS,MELLO [facility] Plan of Treatment: Future Appointments (+ 6 months) and Future Tests (+/- 45 days) The Plan of Treatment section includes future care activities for the [facility] This section includes future appointments and future orders which are active, pending or scheduled. Future Appointments This section includes appointments that were scheduled to occur 6 months from the date of the Encounter, up to a maximum of 20 appointments. The data comes from all [facility]. Appointment Date/Time Appointment Type Appointme nt Facility Name Jul 06, 2024 08:00 AM AMBULATORY - MEDICINE [facility] Jul 06, 2024 09:00 AM AMBULATORY - MEDICINE [facility] Aug 31, 2024 04:00 PM AMBULATORY - MEDICINE [facility] Oct 12, 2024 02:00 PM AMBULATORY - MEDICINE [facility] Oct 13, 2024 10:[address] [facility] Oct 31, 2024 10:00 AM AMBULATORY - MEDICINE [facility] Nov 03, 2024 09:00 AM AMBULATORY - MEDICINE [facility] Nov 09, 2024 08:00 AM AMBULATORY - SURGERY [facility] Dec 02, 2024 10:00 AM AMBULATORY - MEDICINE [facility] Dec 06, 2024 09:45 AM AMBULATORY - NONE [facility] Active, Pending, and Scheduled Orders This section includes a listing of several types of active, pending, and scheduled orders, including clinic medications orders, diagnostic test orders, procedure orders and consult orders; where the start date of the order is 45 days before the date of the Encounter or 45 days after the date of theEncounter. The data comes from all [facility]. Test Date/Time Test Type Test Details Facility Name Jul 05, 2024 12:00 AM Laboratory - Chemi stry Order LIPID PANEL (STL) GREEN LI/HEP BLD/PLAS PLASMA SP ONCE [facility] Lab Results: +/- 30 days of the encounter This section includes the Chemistry and Hematology Lab Results on record with [place] for the patient. Radiology Reports and Pathology Reports are provided separately, in subsequent sections. Lab Results This section contains the Chemistry/Hematology Results that were resulted 30 days before or 30 daysafter the date of the Encounter. Date/Time Source Result Type Result - Unit Interpretation Reference Range Specimen Type Comment May 31, 2024 09:07 AM [facility] CELIAC DISEASE PANEL (STL-MRN) SERUM Specimen Type: SERUM Comment: No serological evidence of celiac disease. tTG IgA may normalize in individuals with celiac disease who maintain a gluten-free diet. Consider HLA DQ2 and DQ8 testing to rule out celiac disease. Celiac disease is extremely rare in the absence of DQ2 or DQ8. REFERENCE RANGE: <15.0 U/mL Value Interpretation <15.0 Antibody not detected > or = 15.0 Antibody detected Test Performed by [facility], [address] [place] [address] Juan David Short M.D., Ph.D., Director of Laboratories , CLIA [id number] Ordering Provider: NITHYA CASTILLO Report Released Date/Time: May 30, 2024 04:14 PM Reporting Lab: [facility] [address] [place] [phone] Performing Lab: [address] IMMUNOGLOBULIN A (PB-MA) 168 mg/dL 70-32 0 TTG-IGA <1.0 SEE BELOW May 31, 2024 09:07 AM [facility] CERULOPLASMIN (STL-PB) SERUM Specimen Type: S TONY Comment: Test Performed by [facility], [address] [place] [address] Juan David Short M.D., Ph.D., Director of Laboratories , CLIA [id number] Ordering Provider: NITHYA CASTILLO Report Released Date/Time: May 30, 2024 04:14 PM Reporting Lab: [facility] [address] [place] [phone] Performing Lab: [address] CERULOPLASMIN (STL-PB) 25 mg/dL 14-30 May 31, 2024 09:07 AM [facility] ANTI-NUCLEAR ANTIBODY (STL-PB) SERUM Specimen Type: SERUM No comment entered. Ordering Provider: NITHYA CASTILLO Report Released Date/Time: May 30, 2024 04:14 PM Reporting Lab: [address] [address] Performing Lab: [address] [address] ANTI-NUCLEAR ANTIBODY (STL-PB) NEGATIVE May 31, 2024 09:07 AM [facility] ANTI-MITOCHONDRIAL AB (STL) SERUM Specimen Ty pe: SERUM No comment entered. Ordering Provider: NITHYA CASTILLO Report Released Date/Time: May 30, 2024 04:14 PM Reporting Lab: [address] [address] Performing Lab: [address] [address] ANTI-MITOCHONDRIAL AB (STL) NEGATIVE {titer} May 31, 2024 09:07 AM [facility] ACTIN (SMOOTHMUSCLE) ANTIBODY IGG SERUM Speci men Type: SERUM No comment entered. Ordering Provider: NITHYA CASTILLO Report Released Date/Time: May 30, 2024 04:14 PM Reporting Lab: [address] [address] Performing Lab: [address] [address] ACTIN (SMOOTHMUSCLE) ANTIBODY IGG NEGATIVE {tite r} <20.1 May 31, 2024 09:07 AM [facility] HEP HB S Ag ([place]RI[place]) (STL) SERUM Sp ecimen Type: SERUM No comment entered. Ordering Provider: NITHYA CASTILLO Report Released Date/Time: May 30, 2024 04:14 PM Reporting Lab: [address] [address] Performing Lab: [address] [address] HEP HB S Ag ([place]) (STL) Nonreactive N onreactive May 31, 2024 09:07 AM [facility] HEPATITIS B SURFACE AB PNL SERUM Specimen Typ e: SERUM No comment entered. Ordering Provider: NITHYA CASTILLO Report Released Date/Time: May 30, 2024 04:14 PM Reporting Lab: [address] [address] Performing Lab: [address] [address] HEP B Surface Ab-HBsAB (STL) Nonreactive m[IU]/m L Nonreactive May 31, 2024 09:07 AM [facility] HEP B CORE AB TOTAL. (STL) SERUM Sp ecimen Type: SERUM No comment entered. Ordering Provider: NITHYA CASTILLO Report Released Date/Time: May 30, 2024 04:14 PM Reporting Lab: [address] [address] Performing Lab: [address] [address] HEP B CORE AB TOTAL. (STL) Nonreactive N onreactive May 31, 2024 09:07 AM [facility] HEPATITIS A IGG AB (STL) SERUM Specimen Type: SERUM No comment entered. Ordering Provider: NITHYA CASTILLO Report Released Date/Time: May 30, 2024 04:14 PM Reporting Lab: [address] [address] Performing Lab: [address] [address] HEPATITIS A IGG AB (STL) Nonreactive Non reactive May 31, 2024 09:07 AM [facility] FERRITIN SERUM Specimen Type: SERUM No comment entered. Ordering Provider: NITHYA CASTILLO Report Released Date/Time: May 30, 2024 04:14 PM Reporting Lab: [address] [address] Performing Lab: [address] [address] FERRITIN 216.49 ng/mL 22-275 May 31, 2024 09:07 AM [facility] ALPHA-1 ANTITRYPSIN (STL-PB) SERUM Specimen T ype: SERUM No comment entered. Ordering Provider: NITHYA CASTILLO Report Released Date/Time: May 30, 2024 04:14 PM Reporting Lab: [facility] [address] [facility] [address] Performing Lab: [facility] [address] [place] [phone] ALPHA-1 ANTITRYPSIN (STL-PB) 152 mg/dL 8 4-200 May 31, 2024 09:07 AM [facility] HEPATIC FUNTION PANEL (STL) PLASMA S pecimen Type: PLASMA No comment entered. Ordering Provider: NITHYA CASTILLO Report Released Date/Time: May 30, 2024 04:14 PM Reporting Lab: [address] [address] Performing Lab: [address] [address] PROTEIN 7.6 g/dL 6-8.6 ALBUMIN 4.7 g/dL 3.4-5 TOTAL BILIRUBIN 1.2 mg/dL 0.2-1.2 ALKALINE PHOSPHATASE 61 U/L 40-150 AST/SGOT 19 U/L 5-34 ALT/SGPT 13 U/L 8-40 CONJ. BILIRUBIN 0.4 mg/dL 0-0.5 May 31, 2024 09:07 AM [facility] IRON/TIBC PROFILE SERUM Specimen Ty pe: SERUM No comment entered. Ordering Provider: NITHYA CASTILLO Report Released Date/Time: May 30, 2024 04:14 PM Reporting Lab: [facility] [address] [facility] [address] Performing Lab: [address] [address] TIBC 359 ug/dL 250-450 TRANSFERRIN 287 mg/dL 163-344 IRON SATURATION 43 20-50 IRON 154 ug/dL 65-175 May 31, 2024 09:07 AM [facility] IGG (STL) SERUM Specimen Type: SERUM No comment entered. Ordering Provider: NITHYA CASTILLO Report Released Date/Time: May 30, 2024 04:14 PM Reporting Lab: [facility] [address] [facility] [address] Performing Lab: [facility] [address] [facility] [address] IGG (STL) 1021 mg/dL 540-1822 Social History: Smoking Status (Most current) and Tobacco Use (All prior to encounter date) This section includes the most current, and the historical, smoking and tobacco- related health factors from the [place] facility where the Encounter took place. Current Smoking Status This section includes the most current smoking, or tobacco-related health factor, from the [place] facility where the Encounter took place. Date/Time Current Smoking Status Comment Facil ity Apr 15, 2024 08:30 AM VA-TOBACCO USER EVERY DAY [facility] Tobacco Use History This section includes a history of the smoking, or tobacco-related health factors, that were collected on or before the date of the Encounter. The data comes from the [place] facility where the Encounter took place. Date/Time Smoking Status/Tobacco Use Comment F acility Apr 15, 2024 08:30 AM VA-TOBACCO USE ADVICE [facility] Apr 15, 2024 08:30 AM VA-TOBACCO USE FRAUD EXAMINER NO [facility] Apr 15, 2024 08:30 AM VA-TOBACCO USE MED NO [facility] Apr 15, 2024 08:30 AM VA-TOBACCO USE [place] [address] [facility] Apr 15, 2024 08:30 AM VA-TOBACCO USER EVERY DAY [facility] Radiology Reports: +/- 30 days of the [...] the Encounter. The data comes from all [place] treatment facilities. Date/Time Radiology Report Provider Source May 31, 2024 08:47 AM LDCT LUNG CANCER SCREENING-OUTSIDE: JITENDRA MOON [id number] -[id number] M Exm Date: MAY 31, 2024@08:47 Req Phys: NITHYA CASTILLO Pat Loc: [facility] PACT 7 NEW PATIENT (Re Img Loc: [facility]CT IMAGING [facility] Service: Unknown [facility], [address] [place] [address] (Case 999 COMPLETE) LDCT LUNG CANCER SCREENING-OUTSID(CT Detailed) CPT:28597 Reason for Study: LDLCT in male with PMHx of tobacco use Clinical History: You are requesting a low-dose CT for lung cancer screening. THIS IS NOT A SUBSTITUTE OR ALTERNATIVE FOR DIAGNOSTIC CHEST CT! Due to the low-dose, non- contrast protocol employed, abnormalities outside the lungs may be obscured. A normal or probably normal screen does not mean that an individual does not have lung cancer. No scan can exclude the possibility of lung cancer. A request for lung cancer screening should only be made following a process of shared decision-making with the patient regarding the benefits and risks of a screening program. A screening program should be considered an on-going process for as long as the patient remains eligible. The patient must meet appropriate eligibility criteria for lung cancer screening. Please answer the following questions carefully. A TRUE answer to all questions is required for eligibility. Patient is age 50-80? True Patient has 20+ pack-year smoking history? True Patient is current smoker, or has quit within the past 15 years. True Patient does not have a health problem that substantially limits life expectancy, or the ability or willingness to have curative treatment. True Shared decision-making has occurred regarding the benefits and risks of a screening program. True By checking the box below, I agree that I am ordering the Lung Cancer Screening on this [place] outside of the [facility] Lung Cancer Screening Program. Furthermore, I agree to follow the Radiologist's recommendations and I am accepting professional responsibility for the further follow-up and management of the [place] as needed. Yes, I agree to the above statement. Report Status: Verified Date Reported: MAY 31, 2024 Date Verified: MAY 31, 2024 Automotive Salesperson E-Sig:/ES/ERIN GATES MD Report: EXAM: LDCT LUNG CANCER SCREENING-OUTSIDE COMPARISON: None PROTOCOL: Screening protocol, low dose, non-contrast CT chest was performed at the local [place] facility in accordance with Lung-Rads 2021. Additional coronal and sagittal reconstructions. MIP reconstructions were reviewed. Secondary computer-aided detection post-processing used. INDEX NODULE: OTHER NODULES: Sub-6 mm nodules and benign fissural nodules LUNG/AIRWAY FINDINGS: Scattered emphysematous and fibrotic changes including bilateral apical fibrosis MEDIASTINUM: No significant mediastinal adenopathy VISUAL CORONARY ARTERY CALCIFICATIONS: Yes UPPER ABDOMEN: Unremarkable.. This examination has been performed using a low-dose technique which limits the ability to detect nonpulmonary pathology BONES, SOFT TISSUES, AND ADDITIONAL FINDINGS: Unremarkable.. (The term unremarkable may include mild or even moderate spondylotic changes not unusual for patient age.) Impression: LUNG-RADS: 2: Benign. RECOMMENDATION: One year Low-dose lung cancer screening CT recommended if patient meets criteria LUNG-RADS MODIFIER: N/A. Primary Interpreting Staff: ERIN GATES MD, Radiologist (Automotive Salesperson) /ERIN SERNA [facility] May 31, 2024 07:33 AM US ABDOMEN LIMITED W/BLOOD FLOW DOPPLER: JITENDRA MOON [id number] -1955 M Exm Date: MAY 31, 2024@07:33 Req Phys: NITHYA CASTILLO Pat Loc: [facility] PACT 7 NEW PATIENT (Re Img Loc: [facility]-ULTRASOUND [facility] Service: Unknown [facility], [address] [place] [address] (Case [id number] COMPLETE) US ABDOMEN LTD, SINGLE ORG OR BENJA(US Detailed) CPT:41400 Reason for Study: assess liver due to history of hepatitis (Case 903 COMPLETE) US BLOOD FLOW ABD/RENAL (LTD) (US Detailed) CPT:90803 Clinical History: Organ to Image: Liver Reason for exam: Hep C ab positive. RNA negative. Assess for liver cirrhosis. Report Status: Verified Date Reported: MAY 31, 2024 Date Verified: MAY 31, 2024 Automotive Salesperson E-Sig:/ES/RADHA SALAS Report: EXAMINATION: US ABDOMEN LTD, SINGLE ORG OR QUADRANT, US BLOOD FLOW ABD/RENAL (LTD) [id number] DATE: 05/31/2024 7:33 AM HISTORY: assess liver due to history of hepatitis . COMPARISON: None. TECHNIQUE: Huang scale and color doppler imaging performed. LIVER: There is normal echogenicity of the liver. There is no nodularity of the liver surface. Liver length:16.1 cm. Portal vein diameter: 1.2 cm. There is no liver mass. There is normal hepatopetal flow in the portal vein. Hepatic veins are patent. GALLBLADDER: Normal. NegativeMurphy's sign. The extrahepatic bile duct measures 3.6 mm. Gallbladder wall measures 2.6 mm. PANCREAS: The visualized portions of the pancreas appear normal RIGHT KIDNEY: Limited views of the right kidney are normal. Impression: Borderline hepatomegaly otherwise normal liver. Normal gallbladder with no bile duct dilatation. Primary Interpreting Staff: RADHA SALAS, RADIOLOGIST (Automotive Salesperson) /RADHA FONSECA [facility] Encounter Notes: All associated encounter notes This section contains the clinical notes associated to the Encounter. Date/Time Encounter Note(s) Provider Source Jun 17, 2024 01:21 PM PSYCHOLOGY OUTPATI ENT NOTE: LOCAL TITLE: PRIMARY CARE PSYCHOLOGY NOTE ST STANDARD TITLE: PSYCHOLOGY OUTPATIENT NOTE DATE OF NOTE: JUN 17, 2024@13:21 ENTRY DATE: JUN 17, 2024@13:21:10 AUTHOR: MELLO MARS EXP COSIGNER: URGENCY: STATUS: COMPLETED Follow-up Template NAME: JITENDRA MOON DATE OF : Jul TIME SPENT WITH PATIENT: 30 minutes DIAGNOSIS BEING TREATED: MDD, Recurrent, Mild CPT Code: 12817 NATURE OF ENCOUNTER: follow up visit SESSION FORMAT: [X] [id number] [ ] Video Telehealth [ ]Phone Confirmed [place]'s location and phone number for virtual appointment. [ ]Yes [ ]N/A NOTE: Use separate CVT template, if appropriate SESSION NUMBER: 2 INTERVENTION/TREATMENT PROVIDED [X] [place] [X] Shared [...] NOTE: Describe relevant historical developments below Annie reported feeling much better since starting the Sertraline. Annie reported feeling surprised by how well he is doing and his says he is so much better. Annie engaged in discussion regarding being able to wean off, how long he has to take the meds, and his fear of being addicted. Used CBT to focus on what is going well, and how to incorporate cbt skills to enhance his mood. Focused on questioning if and what is important to address or let slide. ASSESSMENT MEASURES USED: [ ] Measure in Mental Health Learning Support Services Director. See accompanying Mental Health Diagnostic Study for details. [x ] Measure(s) sent via [facility], electronically following visit. agrees to asynchronous [...] CBT skills and meds PROGRESS TOWARDS GOAL: significant progress made. 2. GOAL/OBJECTIVES: PROGRESS TOWARDS GOAL: 3. GOAL/OBJECTIVES: PROGRESS TOWARDS GOAL: RESPONSE TO INTERVENTIONS: Veterans participation/engagement: [x ]The participated actively in the current interventions. [ ]Other: The [place] continues to consent to the current plan of care: Yes Comments: RISK ASSESSMENT: [ x] NO CHANGE IN RISK FACTORS Related to Suicide or Homicide. [place] did not report any current suicidal/homicidal ideation, plan, or intent. [place] did not appear to be at imminent [...] of relevant risk and protective factors, the did NOT appear to be at imminent risk for suicide or homicide at this time and IS sustainable at the current level of care. [ ] IS considered to be at INCREASED RISK for suicide or homicide based upon: -Actions/interventions taken to address risk and prevent harm include: -Emergency protocols initiated were: ASSIGNED WORK: No further sessions needed at this time. Vet will return if things change. COLLABORATIVE RECOMMENDATIONS/PLAN: Collaboratively discussed outcomes related to assessment and treatment progress. Based on this discussion: [ ] No changes to plan of care. [place] expressed agreement with therapy tasks and [id number] plan. [ x] Using shared decision making, [place] and provider agreed to the following change in plan: discharge Educated on the risks, benefits, and possible complications related to changes to treatment plan. [place] agreed to proceed with the change. [ x]YES [ ]NO /delmy/ Mello Mars Psy.D. Staff Psychologist Signed: 06/23/2024 20:24 MELLO MARS [facility]
--- OUTSIDE RECORDS SUMMARY | 2025-02-02 09:39 | XMS_ITS | Encounter Summary ---
Author Name [facility] Organization [facility] Address [address] [place] [address] Care Team Providers Care Customer Equipment Engineer Name Role Phone NITHYA CASTILLO Primary Care [...] Relationship to Policy Perez [employer] [facility] (WNR) MEDICARE ADVANTAGE [facility] (WNR) Jul 05, 2022 [id number] [id number] JITENDRA MOON PATIENT Selected Encounter This section includes the information on record at [place] for the Encounter. Date/Time Encounter Type Encounter Description Reason Pro vider Source Jun 01, 2024 04:08 PM Outpatient Encounter GASTROENTEROLOGY ICD-10-CM R76.0 Raised antibody titer RUY SAENZ [place] Encounter Template Text not used by [place] Assessments - Encounter Diagnoses This section includes the primary and secondary diagnoses documented for the Encounter. Date/Time Primary/Secondary Diagnosis Diagnosis Name Provider Source Jun 01, 2024 04:14 PM PRIMARY Raised antibody titer DEENA SAENZ [facility] Plan of Treatment: Future Appointments (+ 6 months) and Future Tests (+/- 45 days) The Plan of Treatment section includes future care activities for the [facility] This section includes future appointments and future orders which are active, pending or scheduled. Future Appointments This section includes appointments that were scheduled to occur 6 months from the date of the Encounter, up to a maximum of 20 appointments. The [facility] Appointment Date/Time Appointment Type Appointme nt Facility Name Jun 17, 2024 01:00 PM AMBULATORY - MEDICINE [facility] Jul 06, 2024 08:00 AM [facility] Jul 06, 2024 09:00 AM [facility] Aug 31, 2024 04:00 PM [facility] Oct 12, 2024 02:00 PM AMBULATORY [facility] Oct 13, 2024 10:00 AM [facility] Oct 31, 2024 10:00 AM AMBULATORY [facility] Nov 03, 2024 09:00 AM AMBULATORY [facility] Nov 09, 2024 08:00 AM AMBULATORY - SURGERY [facility] Dec 02, 2024 10:00 AM [facility] Active, Pending, and Scheduled Orders This section includes a listing of several types of active, pending, and scheduled orders, including clinic medications orders, diagnostic test orders, procedure orders and consult orders; where the start date of the order is 45 days before the date of the Encounter or 45 days after the date of theEncounter. The data comes from [facility] Test Date/Time Test Type Test Details Facility Name Apr 25, 2024 12:00 AM Laboratory - Chemi stry Order PROST. SPECIFIC AG.(PB-STL) GOLD/RED SST SERUM SP [facility] Jul 05, 2024 12:00 AM Laboratory - Chemi stry Order LIPID PANEL (STL) GREEN LI/HEP BLD/PLAS PLASMA SP ONCE [facility] Lab Results: +/- 30 days of the [...] Type Comment May 31, 2024 09:07 AM [facility] CELIAC DISEASE PANEL (STL-MRN) SERUM Specimen Type: [...] = 15.0 Antibody detected Test Performed by [employer] [place], [employer] [place], [address] [place] [address] Juan David Short M.D., Ph.D., Director of Laboratories , CLIA [id number] Ordering Provider: NITHYA CASTILLO Report Released Date/Time: May 30, 2024 04:14 PM Reporting Lab: [facility] [address] [place] [phone] Performing Lab: [address] IMMUNOGLOBULIN A (PB-MA) 168 mg/dL 70-32 0 TTG-IGA <1.0 SEE BELOW May 31, 2024 09:07 AM [facility] CERULOPLASMIN (STL-PB) SERUM Specimen Type: S TONY Comment: Test Performed by [employer] [place], [employer] [place], [address] [place] [address] Juan David Short M.D., Ph.D., Director of Laboratories , CLIA [id number] Ordering Provider: NITHYA CASTILLO Report Released Date/Time: May 30, 2024 04:14 PM Reporting Lab: [facility] [address] [place] [phone] Performing Lab: [facility] [address] [facility] CERULOPLASMIN (STL-PB) 25 mg/dL 14-30 May 31, 2024 09:07 AM [facility] ANTI-NUCLEAR ANTIBODY (STL-PB) SERUM Specimen Type: SERUM No comment entered. Ordering Provider: NITHYA CASTILLO Report Released Date/Time: May 30, 2024 04:14 PM Reporting Lab: [address] [address] Performing Lab: [address] [address] ANTI-NUCLEAR ANTIBODY (STL-PB) NEGATIVE May 31, 2024 09:07 AM [facility] ANTI-MITOCHONDRIAL AB (STL) SERUM Specimen Ty pe: SERUM No comment entered. Ordering Provider: NITHYA CASTILLO Report Released Date/Time: May 30, 2024 04:14 PM Reporting Lab: [address] [address] Performing Lab: [address] [address] ANTI-MITOCHONDRIAL AB (STL) NEGATIVE {titer} May 31, 2024 09:07 AM [facility] ACTIN (SMOOTHMUSCLE) ANTIBODY IGG SERUM Speci men Type: SERUM No comment entered. Ordering Provider: NITHYA CASTILLO Report Released Date/Time: May 30, 2024 04:14 PM Reporting Lab: [address] [address] Performing Lab: [address] [address] ACTIN (SMOOTHMUSCLE) ANTIBODY IGG NEGATIVE {tite r} <20.1 May 31, 2024 09:07 AM [facility] HEP HB S Ag (AUSRIA) (STL) SERUM Sp ecimen Type: SERUM No comment entered. Ordering Provider: NITHYA CASTILLO Report Released Date/Time: May 30, 2024 04:14 PM Reporting Lab: [address] [address] Performing Lab: [address] [place] [address] HEP HB S Ag (AUSRIA) (STL) Nonreactive N onreactive May 31, 2024 09:07 AM [facility] HEPATITIS B SURFACE AB PNL SERUM Specimen Typ e: SERUM No comment entered. Ordering Provider: NITHYA CASTILLO Report Released Date/Time: May 30, 2024 04:14 PM Reporting Lab: [address] [address] Performing Lab: [address] [address] HEP B Surface Ab-HBsAB (STL) Nonreactive m[IU]/m L Nonreactive May 31, 2024 09:07 AM [facility] HEP B CORE AB TOTAL. (STL) SERUM Sp ecimen Type: SERUM No comment entered. Ordering Provider: NITHYA CASTILLO Report Released Date/Time: May 30, 2024 04:14 PM Reporting Lab: [address] [address] Performing Lab: [address] [address] HEP B CORE AB TOTAL. (STL) Nonreactive N onreactive May 31, 2024 09:07 AM [facility] HEPATITIS A IGG AB (STL) SERUM Specimen Type: SERUM No comment entered. Ordering Provider: NITHYA CASTILLO Report Released Date/Time: May 30, 2024 04:14 PM Reporting Lab: [address] [address] Performing Lab: [address] [address] HEPATITIS A IGG AB (STL) Nonreactive Non reactive May 31, 2024 09:07 AM [facility] ALPHA-1 ANTITRYPSIN (STL-PB) SERUM Specimen T ype: SERUM No comment entered. Ordering Provider: NITHYA CASTILLO Report Released Date/Time: May 30, 2024 04:14 PM Reporting Lab: [address] [address] Performing Lab: [facility] [address] [facility] [address] ALPHA-1 ANTITRYPSIN (STL-PB) 152 mg/dL 8 4-200 May 31, 2024 09:07 AM [facility] FERRITIN SERUM Specimen Type: SERUM No comment entered. Ordering Provider: NITHYA CASTILLO Report Released Date/Time: May 30, 2024 04:14 PM Reporting Lab: [address] [address] Performing Lab: [address] [address] FERRITIN 216.49 ng/mL 22-275 May 31, 2024 09:07 AM [facility] IRON/TIBC PROFILE SERUM Specimen Ty pe: SERUM No comment entered. Ordering Provider: NITHYA CASTILLO Report Released Date/Time: May 30, 2024 04:14 PM Reporting Lab: [address] [address] Performing Lab: [address] [address] TIBC 359 ug/dL 250-450 TRANSFERRIN 287 mg/dL 163-344 IRON SATURATION 43 20-50 IRON 154 ug/dL 65-175 May 31, 2024 09:07 AM [facility] HEPATIC FUNTION PANEL (STL) PLASMA S pecimen Type: PLASMA No comment entered. Ordering Provider: NITHYA CASTILLO Report Released Date/Time: May 30, 2024 04:14 PM Reporting Lab: [address] [address] Performing Lab: [address] [address] PROTEIN 7.6 g/dL 6-8.6 ALBUMIN 4.7 g/dL 3.4-5 TOTAL BILIRUBIN 1.2 mg/dL 0.2-1.2 ALKALINE PHOSPHATASE 61 U/L 40-150 AST/SGOT 19 U/L 5-34 ALT/SGPT 13 U/L 8-40 CONJ. BILIRUBIN 0.4 mg/dL 0-0.5 May 31, 2024 09:07 AM [facility] IGG (STL) SERUM Specimen Type: SERUM No comment entered. Ordering Provider: NITHYA CASTILLO Report Released Date/Time: May 30, 2024 04:14 PM Reporting Lab: [facility] [address] [facility] [address] Performing Lab: [facility] [address] [facility] [address] IGG (STL) 1021 mg/dL 540-1822 Radiology Reports: +/- 30 days of the [...] the Encounter. The data comes from all [place] treatment facilities. Date/Time Radiology Report Provider Source May 31, 2024 08:47 AM LDCT LUNG CANCER SCREENING-OUTSIDE: JITENDRA MOON [id number] -[id number] M Exm Date: MAY 31, 2024@08:47 Req Phys: NITHYA CASTILLO Pat Loc: [facility] PACT 7 NEW PATIENT (Re Img Loc: [facility] IMAGING [facility] Service: [facility] [address] [place] [address] (Case [id number] COMPLETE) LDCT LUNG CANCER SCREENING-OUTSID(CT Detailed) CPT:64558 Reason for Study: LDLCT in male with [...] ordering the Lung Cancer Screening on this outside of the [facility] Lung Cancer Screening Program. Furthermore, I agree to follow the Radiologist's recommendations and I am accepting professional responsibility for the further follow-up and management of the [place] as needed. Yes, I agree to the above statement. Report Status: Verified Date Reported: MAY 31, 2024 Date Verified: MAY 31, 2024 Electrical Maintenance Worker E-Sig:/ES/ERIN GATES MD Report: EXAM: LDCT LUNG CANCER SCREENING-OUTSIDE COMPARISON: None PROTOCOL: Screening protocol, low dose, non-contrast CT chest was performed at the local [place] facility in accordance with Lung-Rads 2021. Additional [...] Primary Interpreting Staff: ERIN GATES MD, Radiologist (Electrical Maintenance Worker) /ERIN SERNA [facility] May 31, 2024 07:33 AM US ABDOMEN LIMITED W/BLOOD FLOW DOPPLER: JITENDRA MOON [id number] -1955 M Exm Date: MAY 31, 2024@07:33 Req Phys: NITHYA CASTILLO Pat Loc: [facility] PACT 7 NEW PATIENT (Re Img Loc: [facility]ULTRASOUND [facility] Service: Unknown [facility], [facility] [address] [place] [address] (Case [id number] COMPLETE) US ABDOMEN LTD, SINGLE ORG OR BENJA(US Detailed) CPT:55209 Reason for Study: assess liver due to history of hepatitis (Case 903 COMPLETE) US BLOOD FLOW ABD/RENAL (LTD) (US Detailed) CPT:39738 Clinical History: Organ to Image: Liver Reason for exam: Hep C ab positive. RNA negative. Assess for liver cirrhosis. Report Status: Verified Date Reported: MAY 31, 2024 Date Verified: MAY 31, 2024 Electrical Maintenance Worker E-Sig:/ES/RADHA SALAS Report: EXAMINATION: US ABDOMEN LTD, SINGLE ORG OR QUADRANT, US BLOOD FLOW ABD/RENAL (LTD) [id number] DATE: 05/31/2024 7:33 AM HISTORY: assess liver [...] dilatation. Primary Interpreting Staff: RADHA SALAS, RADIOLOGIST (Electrical Maintenance Worker) /RADHA FONSECA. [facility] [place] [facility] Encounter Notes: All associated encounter notes This section contains the clinical notes associated to the Encounter. Date/Time Encounter Note(s) Provider Source Jun 01, 2024 04:08 PM CONSULT: LOCAL TITLE: E-CONSULT GI OUTPT STL STANDARD TITLE: CONSULT DATE OF NOTE: JUN 01, 2024@16:08 ENTRY DATE: JUN 01, 2024@16:08:18 AUTHOR: AMINA SAENZ COSIGNER: URGENCY: STATUS: COMPLETED The reason for consult: Positive hepatitis C antibody I have reviewed pertinent CPRS documentation in the electronic medical record for this patient. The recommendations/findings offered are the result of information from the requesting provider and a chart review only. Patient is a 68-year-old male recently initiating care at the [place]. Patient had labs which showed HCV antibody positive. Hepatitis C PCR was negative. Liver enzymes are normal. A liver ultrasound was obtained which also showed a normal liver. Chronic liver disease evaluation was obtained and is normal. Diagnosis and/or Impression: # Hepatitis C antibody positive, PCR negative -Patient does not have hepatitis C (PCR negative), therefore does not require treatment -Patient was likely exposed to hepatitis C in the past (~20% of patients able to eradicate virus on their own), or this is a false positive. - If pt exposed in the past, will always be positive for HCV Ab. -In the future, patients with positive hepatitis C antibody with normal liver enzymes & neg PCR do not require chronic liver disease workup. This evaluation is for patients with chronically elevated liver enzymes. 5-10 minutes or less spent reviewing patient's medical records /delmy/ Amina Saenz PA-C Physician Dental Therapist - Gastroenterology Signed: 06/01/2024 16:14 AMINA SAENZ [facility]
--- OUTSIDE RECORDS SUMMARY | 2025-02-02 09:39 | XMS_ITS | Encounter Summary ---
Author Organization [facility] Address [address] [place] [address] Phone Care Team Providers Care Filler In Name Role Phone Checo Baez MD Primary Care Provider [phone] Reason for Visit * Reason Comments Medication Refill Encounter Details Date Type Department Care Team (Late st Contact Info) Description 02/19/2024 Refill [facility] [address] [place] [address] Checo Baez MD [address] [address] Medication Refill Social History Tobacco Use Types [...] encounter Miscellaneous Notes * Telephone Encounter - Josefa Zepeda RN - 02/19/2024 12:24 PM CDT Medication failed the protocol, provider to review and approve the medication order if appropriate. Requested Prescriptions Pending Prescriptions Disp Refills lisinopril (PRINIVIL, ZESTRIL) 20 MG Tablet [Pharmacy Med Name: LISINOPRIL 20 MG TABLET] 90 Tablet 1 Sig: TAKE 1 TABLET BY MOUTH EVERY DAY MARIA A Inhibitors Protocol Failed - 02/19/2024 12:53 AM Failed - Serum potassium on record in past 12 months No results found for: POTASSIUM , POCTK Failed - GFR on record in past 12 months No results found for: GFRNA Passed - Blood pressure on record in past 12 months Clinician-entered: BP Readings from Last 3 Encounters: 01/14/24 126/72 07/15/23 130/72 07/01/23 132/70 Patient-entered: No data recorded Passed - Visit with relevant provider in past 12 months or upcoming 90 days Recent Visits Date Type Provider Dept 01/14/24 Office Visit Checo Baez MD [facility] 07/15/23 Office Visit Checo Baez MD [facility] 07/01/23 Office Visit Checo Baez MD [facility] Showing recent visits within past 365 days [...] documented as of this encounter Care Teams Filler In Relationship Specialty Start Date End Date Checo Baez MD [address] [address] PCP - General Family Medicine 09/05/15 documented as of this encounter
--- OUTSIDE RECORDS SUMMARY | 2025-02-02 09:39 | XMS_ITS | Encounter Summary ---
Author Organization [facility] Address [address] [place] [address] Phone Care Team Providers Care Ropewalk Rope Maker Name Role Phone Checo Baez MD Primary Care Provider [phone] Reason for Visit * Reason Comments Medication Refill Encounter Details Date Type Department Care Team ([facility] st Contact Info) Description 03/28/2021 Refill [facility] [address] [place], [place] [id number] Checo Baez MD [address] [address] Medication Refill Social History Tobacco Use Types Packs/Day Years Used Date Smoking Tobacco: Former Cigarettes Q uit: 02/25/2016 Smokeless Tobacco: Current Chew Alcohol Use Standard Drinks/Week Comments Yes 10 (1 standard drink = 0.6 oz pu re alcohol) PHQ-2 Answer Date Recorded Total Score - Questions 1-9 0 03/0 02/2021 Sexually Active Control Partners Comments Yes Female Sex and Gender Information Value Date Recorded Sex Assigned at Not on file Legal Sex Male 7:07 PM CDT Gender Identity Not on file Sexual Orientation Not on file documented as of this encounter Miscellaneous Notes * Telephone Encounter - Checo Baez MD - 03/28/2021 3:24 PM CDT Prescription approved. Please call in * Telephone Encounter - Hannah Manzo RN - 03/28/2021 3:15 PM CDT Medication failed the protocol, provider to review and approve the medication order if appropriate. Requested Prescriptions Pending Prescriptions Disp Refills lisinopril (PRINIVIL, ZESTRIL) 20 MG Tablet [Pharmacy Med Name: LISINOPRIL 20 MG TAB 20 Tablet] 30 Tablet 1 Sig: TAKE ONE TABLET BY MOUTH EVERY DAY MARIA A Inhibitors Protocol Failed - 03/28/2021 3:15 PM Failed - Serum potassium on record in past 12 months No results found for: POTASSIUM, POCTK Failed - GFR on record in past 12 months No results found for: GFRNA Passed - Blood pressure on record in past 12 months Clinician-entered: BP Readings from Last 3 Encounters: 12/07/20 128/66 06/08/20 124/82 11/23/19 124/68 Patient-entered: No data recorded Passed - Visit with relevant provider in past 12 months or upcoming 90 days Recent Visits Date Type Provider Dept 12/07/20 Office Visit Checo Baez MD [facility] 06/08/20 Office Visit Checo Baez MD [facility] Showing recent visits within past 365 days and meeting all other requirements Future Appointments Date Type Provider Dept 06/21/21 Appointment Checo Baez MD [facility] Showing future appointments within next 90 days and meeting all other requirements documented in this encounter Plan of Treatment Not on file documented as of this encounter Visit Diagnoses Not on filedocumented in this encounter Additional Health Concerns Assessment Noted Time PHQ-9 Depression Total Score: 0 12/08/19 8:00 AM INSPECTOR WATCH TRAIN documented as of this encounter Care Teams Ropewalk Rope Maker Relationship Specialty Start Date End Date Checo Baez MD [address] [address] PCP - General Family Medicine 09/05/15 documented as of this encounter
--- OUTSIDE RECORDS SUMMARY | 2025-02-02 09:39 | XMS_ITS | Encounter Summary ---
Author Organization [facility] Address [address] [place] [address] Phone Care Team Providers Care Air Conditioning Installer Name Role Phone Checo Baez MD Primary Care Provider [phone] Reason for Visit * Reason Comments Medication Refill Encounter Details Date Type Department Care Team ([facility] st Contact Info) Description 06/01/2021 Refill [facility] [address] [place], [place] [phone] Checo Baez MD [address] [address] Medication Refill Social History Tobacco Use Types [...] Telephone Encounter - Checo Baez MD - 06/03/2021 3:15 PM CDT Prescription approved. Please call in * Telephone Encounter - Josefa Zepeda RN - 06/03/2021 2:57 PM CDT Medication failed the protocol, provider to review and approve the medication order if appropriate. Requested Prescriptions Pending Prescriptions Disp Refills lisinopril (PRINIVIL, ZESTRIL) 20 MG Tablet [Pharmacy Med Name: LISINOPRIL 20 MG TAB 20 Tablet] 30 Tablet 1 Sig: TAKE ONE TABLET BY MOUTH EVERY DAY MARIA A Inhibitors Protocol Failed - 06/01/2021 9:37 AM Failed - Serum potassium on record [...] [place] 06/08/20 Office Visit Checo Baez MD [facility] [...] Depression Total Score: 0 12/08/19 8:00 AM MANAGER PIPELINE documented as of this encounter Care Teams Air Conditioning Installer Relationship Specialty Start Date End Date Checo Baez MD [address] [address] PCP - General Family Medicine 09/05/15 documented as of this encounter
--- OUTSIDE RECORDS SUMMARY | 2025-02-02 09:39 | XMS_ITS | Encounter Summary ---
Author Name [facility] [place] Organization [place] Address [address] [place] [id number] Care Team Providers Care Strategy Planning Consultant Name Role Phone JONATHAN NITHYA Primary Care [...] Name Patient's Relationship to Policy Perez [employer]ET[employer] [facility] (WNR) MEDICARE ADVANTAGE [facility] (WNR) Jul 05, 2022 [id number] [id number] JITENDRA MOON PATIENT Selected Encounter This section includes the information on record at [place] for the Encounter. Date/Time Encounter Type Encounter Description Reason Provider Source Jan 05, 2025 09:00 AM OFFICE O/P EST MOD 30 MIN PULMONARY/CHEST ICD-10-CM J44.9 Chronic obstructive pulmonary disease, unspecified SHEELA,SARAH IHE Encounter Template Text not used by [place] Assessments - Encounter Diagnoses This section includes the primary and secondary diagnoses documented for the Encounter. Date/Time Primary/Secondary Diagnosis Diagnosis Name Provider Source Jan 05, 2025 10:30 AM PRIMARY Chronic obstructive pulmonary disease, unspecified SARAH COKER [facility] Jan 05, 2025 10:30 AM SECONDARY Nicotine dependence, cigarettes, in remission SARAH COKER [facility] Jan 05, 2025 10:30 AM SECONDARY Snoring [facility] Plan of Treatment: Future Appointments (+ 6 months) and Future Tests (+/- 45 days) The Plan of Treatment section includes future care activities for the patient from all [place] [facility] This section includes future appointments and future orders which are active, pending or scheduled. Future Appointments This section includes appointments that were scheduled to occur 6 months from the date of the Encounter, up to a maximum of 20 appointments. The data comes from all [facility]. Appointment Date/Time Appointment Type Appointme nt Facility Name Jan 11, 2025 08:30 AM AMBULATORY - MEDICINE [facility] Jan 13, 2025 11:00 AM AMBULATORY - MEDICINE [facility] February 23, 2025 01:00 PM AMBULATORY - MEDICINE [facility] Apr 13, 2025 02:00 PM AMBULATORY - MEDICINE [facility] Jun 02, 2025 10:30 AM AMBULATORY - SURGERY [facility] Active, Pending, and Scheduled Orders [...] PANEL (STL) GREEN LI/HEP BLD/PLAS PLASMA SP [facility] Jan 05, 2025 10:34 AM Procedure Order PFT PROCED URE [facility] PULMONARY FUNCTION TEST (PFT) OUTPT [facility] Proc Bob[facility] Developer's Choice [facility] Lab Results: +/- 30 days of the [...] Type Comment Jan 13, 2025 12:00 AM [facility] PROST. SPECIFIC AG.(PB-STL) SERUM Specimen Ty pe: SERUM Comment: The listed sex of this patient may not be a typical indication for this test. Therefore, reference ranges or interpretive criteria listed may not be valid. Clinical correlation suggested. Ordering Provider: BARBY GAMBOA Report Released Date/Time: Jan 05, 2025 05:42 PM Reporting Lab: [address] [address] Performing Lab: [address] [address] PROST. SPECIFIC AG.(PB-STL) 4.366 ng/mL HH 0-4 Jan 13, 2025 12:[address] [facility] LIPID PANEL (STL) PLASMA Specimen Ty pe: PLASMA No comment entered. Ordering Provider: NITHYA CASTILLO Report Released Date/Time: Oct 14, 2024 02:56 PM Reporting Lab: [address] [address] Performing Lab: [address] [address] CHOLESTEROL 160 mg/dL 0-200 TRIGLYCERIDE 94 mg/dL 0-150 CALCULATED LDL 93 mg/dL HDL(New) 48 mg/dL >40 Vital Signs: All taken on the encounter date This section contains inpatient and outpatient Vital Signs collected on the date of the Encounter. Date/Time Temperature Pulse Blood Pressure Respiratory Rate SP02 Pain Height Weight Body Mass Index Source Jan 05, 2025 09:03 AM 98.3 72 129/80 16 98 0 174.5 24 [facility] N Radiology Reports: +/- 30 days [...] comes from all [place] treatment facilities. Date/Time Radiology Report Provider Source Dec 06, 2024 01:30 PM MRI PROSTATE W&W/O CONTRAST: JITENDRA MOON [id number] -[id number] M Exm Date: DEC 06, 2024@13:30 Req Phys: CHRISTIANO GAMBOA Loc: [facility]-UROLOGY MD 1 (Req'g Loc) Img Loc: OUTSIDE [facility]-MRI Service: Unknown (Case [id number] COMPLETE) MRI PROSTATE W&W/O CONTRAST (MRI Detailed) CPT:24923 Reason for Study: OUTSIDE EXAM Clinical History: OUTSIDE EXAM Report Status: Electronically Filed Date Reported: DEC 08, 2024 Report: [facility] and images were uploaded into [facility]. The report has been scanned into [employer]. In order to upload images a case number was needed, therefore this is an administrative report. Impression: This study [facility] in [facility] facility and images were uploaded into [employer] [facility]. The report has been scanned into [employer]. In order to upload images a case number was needed, therefore this is an administrative report VERIFIED BY: / *ELECTRONICALLY FILED* [facility] Encounter Notes: All associated encounter notes This section contains the clinical notes associated to the Encounter. Date/Time Encounter Note(s) Provider Source Jan 05, 2025 10:08 AM PULMONARY OUTPATIE NT NOTE: LOCAL TITLE: PULMONARY OUTPATIENT FOLLOW UP STL STANDARD TITLE: PULMONARY OUTPATIENT NOTE DATE OF NOTE: JAN 05, 2025@10:08 ENTRY DATE: JAN 05, 2025@10:08:24 AUTHOR: SARAH COKER COSIGNER: URGENCY: STATUS: COMPLETED PULMONARY OUTPATIENT FOLLOW UP STL Has ADDENDA 69 year old MALE here for Pulmonary follow up visit on 01/05/25 09:00. HISTORY: Past hx of sig tobacco use, >50PY, quit approx 8yrs ago. Initially seen in pulm consult Jul 2024 for apical scarring on LDCT and COPD management, mild obstructive pattern on PFTs, ICS/LABA + LAMA changed to LAMA/LABA. Returns today for routine f/u. No interval resp illnesses/exacerbations. Taking stiolto as directed. Rarely uses alb MDI....reports approx 4x over last 2 months for dyspnea. Pt reports active lifestyle....enjoys hiking..reports hiking in [place] at >9000ft without any issues. Has had mild increase in nasal congestion/cough with spring weather, otherwise denies daily cough, sputum/hemoptysis, chest tightness or wheezing. He remains tobacco free. No hx of sleep apnea, but has hx of snoring with reporting irregular breathing. Pt reports poor quality sleep, daytime drowsiness. He had prior [facility] sleep consult placed in April 2024, but then d/c because he thought sxs were improving, but now reports that sxs have progressed and is agreeable to having another consult placed for a sleep study. PAST MEDICAL HISTORY: 1) HTN - Hypertension ([facility] [id number]) 2) COPD - Chronic Obstructive Pulmonary Disease ([facility] [id number]) 3) Erectile Dysfunction ([facility] [id number]) 4) Ex-tobacco user 5) Current drinker 6) Exposure to potentially hazardous substance ([facility] [id number]) 7) Depression ACTIVE OUTPATIENT MEDICATIONS: Active Outpatient Medications (including Supplies): Active [...] PER 90 DAYS Indication: FOR ERECTILE DYSFUNCTION ALLERGIES: Patient has answered NKA REVIEW OF SYSTEMS: - As noted above, otherwise negative. PHYSICAL EXAMINATION: Vital Signs: Temperature: 98.3 F [36.8 C] (01/05/2025 09:03) Blood Pressure: 129/80 (01/05/2025 09:03) Pulse: 72 (01/05/2025 09:03) Respirations: 16 (01/05/2025 09:03) Pain: 0 (01/05/2025 09:03) Patient Height:71 in [180.3 cm] (01/02/2025 12:44) Patient Weight:174.5 lb [79.15 kg] (01/05/2025 09:03) BMI: 24.4 O2 saturation: 98% (01/05/2025 09:03) GENERAL: Ambulated to exam room, no distress. HEENT: Supple. No LAD. RESP: Nonlabored. BS equal, CTA. CARDIO: RRR. No murmurs. SELECTED RESULTS REVIEWED: - Reviewed chart including past pulm consult, PFTs 07/2024, LDCT 05/2024. - PFTs 05/2024 with mild obs pattern, no ART GLASS SETTER, mod decrease DLCO. - LDCT 05/2024: INDEX NODULE: OTHER NODULES: Sub-6 mm nodules and benign fissural nodules LUNG/AIRWAY FINDINGS: Scattered emphysematous and fibrotic changes including bilateral apical fibrosis MEDIASTINUM: No significant mediastinal adenopathy Impression: LUNG-RADS: 2: Benign. RECOMMENDATION: One year Low-dose lung cancer screening CT recommended if patient meets criteria IMPRESSION/RECOMMENDATIONS: #Mild COPD with emphysema: - Stable. Continue stiolto, prn abluterol. #Snoring with c/f HASEEB: - Consult sleep for home based study. #Sig tobacco hx, >50PY, quit ~2012: - s/p LDCT 05/2024, benign, next scan due at 12 months. - Previous imaging ordereed by PCP. Discussed LCS, pt agreegable to enrollment. Consult placed. #Immunizations: - Flu vaccine UTD. RTC in 1yr. Cigarette Pack Year History: The patient previously used cigarettes and quit smoking less than 15 years ago. Year the patient quit smoking: Date: ~2012 ? Exact date is unknown How many years have you smoked cigarettes? # of years: ~44 Average number of packs/day over the entire time patient smoked: Packs/day: 1ppd x ~39, 2-3ppd x 3 4-5yrs /alannah COKER PHYSICIAN HITTING COACH Signed: 01/05/2025 10:36 01/05/2025 ADDENDUM STATUS: COMPLETED Initial Lung Cancer Screen (Provider): No clinical exclusions, patient is a current candidate for the lung cancer screening program. Patient agrees to lung cancer screening. Lung cancer screening information provided and low dose CT will be ordered. /alannah COKER PHYSICIAN HITTING COACH Signed: 01/05/2025 10:41 SARAH COKER [facility]
--- OUTSIDE RECORDS SUMMARY | 2025-02-02 09:39 | XMS_ITS | Encounter Summary ---
Author Name [place] Address [address] [place] [address] Care Team Providers Care Healthcare Administration Intern Name Role Phone NITHYA CASTILLO Primary Care [...] Name Patient's Relationship to Policy Perez [employer]ET[employer] [facility] (WNR) MEDICARE ADVANTAGE [facility] (WNR) Jul 05, 2022 [id number] JITNEDRA MOON PATIENT Selected Encounter This section includes the information on record at [place] for the Encounter. Date/Time Encounter Type Encounter Description Reason Provider Source Jan 13, 2025 11:00 AM PSYTX W PT 30 MINUTES PCMHI INDIV ICD-10-CM F33.1 Major depressive disorder, recurrent, moderate MARS,MELLO IHE Encounter Template Text not used by [facility] Assessments - Encounter Diagnoses This section includes the primary and secondary diagnoses documented for the Encounter. Date/Time Primary/Secondary Diagnosis Diagnosis Name Provider Source Jan 16, 2025 08:57 AM PRIMARY Major depressive disorder, recurrent, moderate MARS,MELLO [facility] Jan 16, 2025 08:57 AM SECONDARY Pathological gambling MELLO MARS [facility] Plan of Treatment: Future Appointments (+ 6 months) and Future Tests (+/- 45 days) The Plan of Treatment section includes future care activities for the patient from all [place] [facility]. This section includes future appointments and future orders which are active, pending or scheduled. Future Appointments This section includes appointments that were scheduled to occur 6 months from the date of the Encounter, up to a maximum of 20 appointments. The data comes from all [place] treatment facilities. Appointment Date/Time Appointment Type Appointme nt Facility Name February 23, 2025 01:00 PM AMBULATORY - MEDICINE [facility] Apr 13, 2025 02:00 PM AMBULATORY - MEDICINE [facility] Jun 02, 2025 10:30 AM AMBULATORY - SURGERY [facility] Active, Pending, and Scheduled Orders This section includes a listing of several types of active, pending, and scheduled orders, including clinic medications orders, diagnostic test orders, procedure orders and consult orders; where the start date of the order is 45 days before the date of the Encounter or 45 days after the date of theEncounter. The data comes from all [facility]. Test Date/Time Test Type Test Details Facility Name Jan 05, 2025 10:34 AM Procedure Order PFT PROCED URE PULMONARY FUNCTION TEST (PFT) OUTPT Proc Redevelopment Specialist's Choice [facility] Lab Results: +/- 30 days of the encounter This section includes the Chemistry and Hematology Lab Results on record with [place] for the patient. Radiology Reports and Pathology Reports are provided separately, in subsequent sections. Lab Results This section contains the Chemistry/Hematology Results that were resulted 30 days before or 30 daysafter the date of the Encounter. Date/Time Source Result Type Result - Unit Interpretation Reference Range Specimen Type Comment Jan 13, 2025 12:00 AM [facility] LIPID PANEL (STL) PLASMA Specimen Type: PLASMA No comment entered. Ordering Provider: NITHYA CASTILLO Report Released Date/Time: Oct 14, 2024 02:56 PM Reporting Lab: [facility] [address] [facility] [address] Performing Lab: [facility] [address] [facility] [address] CHOLESTEROL 160 mg/dL 0-200 TRIGLYCERIDE 94 mg/dL 0-150 CALCULATED LDL 93 mg/dL HDL(New) 48 mg/dL >40 Jan 13, 2025 12:00 AM [facility] PROST. SPECIFIC AG.(PB-STL) SERUM Specimen Ty pe: SERUM Comment: The listed sex of this patient may not be a typical indication for this test. Therefore, reference ranges or interpretive criteria listed may not be valid. Clinical correlation suggested. Ordering Provider: CHRISTIANO GAMBOA Report Released Date/Time: Jan 05, 2025 05:42 PM Reporting Lab: [address] [address] Performing Lab: [address] [address] PROST. SPECIFIC AG.(PB-STL) 4.366 ng/mL HH 0-4 Social History: Smoking Status (Most current) and Tobacco Use (All prior to encounter date) This section includes the most current, and the historical, smoking and tobacco- related health factors from the [place] facility where the Encounter took place. Current Smoking Status This section includes the most current smoking, or tobacco-related health factor, from the [place] facility where the Encounter took place. Date/Time Current Smoking Status Comment Facil ity Apr 15, 2024 08:30 AM VA-TOBACCO USER EVERY DAY [facility] Tobacco Use History This section includes a history of the smoking, or tobacco-related health factors, that were collected on or before the date of the Encounter. The data comes from the [place] facility where the Encounter took place. Date/Time Smoking Status/Tobacco Use Comment F acility Apr 15, 2024 08:30 AM VA-TOBACCO USE ADVICE [facility] Apr 15, 2024 08:30 AM VA-TOBACCO USE BINDING END STITCHER NO [facility] Apr 15, 2024 08:30 AM VA-TOBACCO USE MED NO [facility] Apr 15, 2024 08:30 AM VA-TOBACCO USE WI 30 MIN OF WAKE UP [facility] Apr 15, 2024 08:30 AM VA-TOBACCO USER EVERY DAY [facility] Encounter Notes: All associated encounter notes This section contains the clinical notes associated to the Encounter. Date/Time Encounter Note(s) Provider Source Jan 13, 2025 11:42 AM MENTAL HEALTH DIAG NOSTIC STUDY NOTE: LOCAL TITLE: MENTAL HEALTH DIAGNOSTIC STUDY STANDARD TITLE: MENTAL HEALTH DIAGNOSTIC STUDY NOTE DATE OF NOTE: JAN 13, 2025@11:42:23 ENTRY DATE: JAN 13, 2025@11:42:23 AUTHOR: MELLO MARS EXP COSIGNER: URGENCY: STATUS: COMPLETED These assessments were completed by JITENDRA MOON via provider direct entry on 01/13/2025 11:41:23 AM. PATIENT HEALTH QUESTIONNAIRE-9 (PHQ-9) The patient reported some symptoms of depression; symptoms are not consistent with a major depressive episode. Patient reported being bothered by the following over the last 2 weeks: 1. Little interest or pleasure: Several Days 2. Feeling down, depressed or hopeless: Several Days 3. Trouble sleeping: More than half the days 4. Tired, low energy: Several Days 5. Poor appetite, over-eating: More than half the days 6. Feelings of failure, guilt: Several Days 7. Trouble concentrating: Not at all 8. Motor retardation, agitation: Several Days 9. Thoughts better off /hurting self: Not at all PHQ-9 total score = 9 1-4 = minimal symptoms 5-9= mild symptoms 10-14= moderate symptoms 15-19= moderately severe symptoms 20-27= severe depressive symptoms The patient stated that the depressive symptoms made it somewhat difficult to work, take care of things at home, or get along with others. GENERAL ANXIETY DISORDER-7 (BERNARDA-7) Patient reported being bothered by the following over the last two weeks: 1. Feeling nervous, anxious or on edge: More than half the days 2. Not being able to stop or control worrying: Several days 3. Worrying too much about different things: Several days 4. Trouble relaxing: Not at all 5. Feeling restless (hard to sit still): Not at all 6. Becoming easily annoyed or irritable: Several days 7. Afraid as if something awful might happen: Several days BERNARDA-7 total score = 6 0-4=minimal symptoms 5-9=mild symptoms 10-14=moderate symptoms 15-21=severe symptoms The patient stated that the anxiety symptoms made it somewhat difficult to work, take care of things at home, or get along with others. /delmy/ Mello Mars Psy.D. Staff Psychologist Signed: 01/17/2025 14:31 MELLO MARS [facility] Jan 13, 2025 11:19 AM PSYCHOLOGY OUTPATI ENT NOTE: LOCAL TITLE: PRIMARY CARE PSYCHOLOGY NOTE [facility] STANDARD TITLE: PSYCHOLOGY OUTPATIENT NOTE DATE OF NOTE: JAN 13, 2025@11:19 ENTRY DATE: JAN 13, 2025@11:19:38 AUTHOR: MELLO MARS EXP COSIGNER: URGENCY: STATUS: COMPLETED Follow-up Template NAME: JITENDRA MOON DATE OF : Jul TIME SPENT WITH PATIENT: 30 minutes DIAGNOSIS BEING TREATED: MDD, Recurrent, Mod; gambling addiction CPT Code: 52251 NATURE OF ENCOUNTER: follow up visit SESSION FORMAT: [X] [id number] [ ] Video Telehealth [ ]Phone Confirmed [place]'s location and phone number for virtual appointment. [ ]Yes [ ]N/A NOTE: Use separate CVT template, if appropriate SESSION NUMBER: 5 INTERVENTION/TREATMENT PROVIDED [X] [facility] [X] Shared [...] Not Enter paperwork) Psychoeducation provided regarding [facility] services. Revisited med options for mood. CO- to make connection between alcohol and gambling and subsequent consequence. Behavioral Activation RELEVANT HISTORICAL DEVELOPMENTS SINCE LAST CONTACT: NOTE: Describe relevant historical developments below Amanda reported his was diagnosed with lymphoma cancer, and she is in chemotherapy to address this. Her cancer was found in several lymph nodes. 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 Annie reported he will at times, go out side for a break. Annie has not gambled since our appointment. He has not been to the casino or drinking at the casino. Annie has not had drinks at a restaurant that has slot machines. Annie reported at the time of the session he hasn't had a drink in a week. Annie reported his mood has been improved in that he feels better than I have for a while. Likely due to not drinking and not gambling and focused on his spouse. Annie reported It's like I have a purpose now. Discussed the importance to be mindful of having health outlets, as there can be an acting out phase after a duration of suppression. Annie indicated he would focus more on increasing pleasurable activities. Annie has remained compliant with meds. Annie has also been ordered a sleep study- HST. He coordinated with the technical manager [facility] and talk him through how to do the night study. ASSESSMENT MEASURES USED: [ ] Measure in Mental Health Learning And Development Coordinator. See accompanying Mental Health Diagnostic Study for details. [x ] Measure(s) sent via [facility], electronically following visit. Tur[place] agrees to asynchronous electronic administration; when returned, [...] CBT skills and meds PROGRESS TOWARDS GOAL: progress made, no gambling since last skills. has fully implemented behavior mod skills which have been working for him. remains med compliant. 2. GOAL/OBJECTIVES: PROGRESS TOWARDS GOAL: 3. GOAL/OBJECTIVES: PROGRESS TOWARDS GOAL: RESPONSE TO INTERVENTIONS: Veterans participation/engagement: [x ]The [place] participated actively in the current interventions. [ ]Other: The continues to consent to the current plan of care: Yes Comments: RISK ASSESSMENT: [ x] NO CHANGE IN RISK FACTORS Related to Suicide or Homicide. Turton did not report any current suicidal/homicidal ideation, [...] -Emergency protocols initiated were: ASSIGNED WORK: Vet meet with sleep med directly after session to go over HST instructions. Vet to continue with: removing having casual drinks in the casino as an option and choose a restaurant (that doesn't have a slot machine) instead. COLLABORATIVE RECOMMENDATIONS/PLAN: Collaboratively discussed outcomes related to assessment and treatment progress. Based on this discussion: [ x] No changes to plan of care. Turton expressed agreement with therapy tasks and [id number] plan. [ ] Using shared decision making, and provider agreed to the following change in plan: Educated Tur[place] on the risks, benefits, and possible complications related to changes to treatment plan. agreed to proceed with the change. [ x]YES [ ]NO /delmy/ Mello Mars Psy.D. Staff Psychologist Signed: 01/16/2025 08:57 MELLO MARS [facility]
--- OUTSIDE RECORDS SUMMARY | 2025-02-02 09:39 | XMS_ITS | Encounter Summary ---
Author Name [facility] Organization [facility] Address [address] [place] [address] Care Team Providers Care Cardiac Exercise Physiologist Name Role Phone NITHYA CASTILLO Primary Care [...] Name Patient's Relationship to Policy Perez [employer] [facility] (WNR) MEDICARE ADVANTAGE [facility] (WNR) Jul 05, 2022 [id number] JITENDRA MOON PATIENT Selected Encounter This section includes the information on record at [place] for the Encounter. Date/Time Encounter Type Encounter Description Reason Provider Source Jul 06, 2024 08:00 AM PROGRAM INTAKE ASSESSMENT PULMONARY FUNCTION ICD-10-CM J44.9 Chronic obstructive pulmonary disease, unspecified BRENT AVILA Encounter Template Text not used by [place] Assessments - Encounter Diagnoses This section includes the primary and secondary diagnoses documented for the Encounter. Date/Time Primary/Secondary Diagnosis Diagnosis Name Provider Source Jul 06, 2024 08:22 AM PRIMARY Chronic obstructive pulmonary disease, unspecified AVILA,NIKESHA R [facility] Plan of Treatment: Future Appointments (+ 6 months) and Future Tests (+/- 45 days) The Plan of Treatment section includes future care activities for the [facility] [place] [facility] This section includes future appointments and future orders which are active, pending or scheduled. Future Appointments This section includes appointments that were scheduled to occur 6 months from the date of the Encounter, up to a maximum of 20 appointments. The data comes from all [facility]. Appointment Date/Time Appointment Type Appointme nt Facility Name Aug 31, 2024 04:00 PM AMBULATORY - MEDICINE [facility] Oct 12, 2024 02:00 PM AMBULATORY - MEDICINE [facility] Oct 13, 2024 10:00 AM AMBULATORY - MEDICINE [facility] Oct 31, 2024 10:00 AM AMBULATORY - MEDICINE [facility] Nov 03, 2024 09:00 AM AMBULATORY - MEDICINE [facility] Nov 09, 2024 08:00 AM AMBULATORY - SURGERY . [facility] Dec 02, 2024 10:00 AM AMBULATORY - MEDICINE [facility] Dec 06, 2024 09:45 AM AMBULATORY - NONE [facility] Active, Pending, and Scheduled Orders This section includes a listing of several types of active, pending, and scheduled orders, including clinic medications orders, diagnostic test orders, procedure orders and consult orders; where the start date of the order is 45 days before the date of the Encounter or 45 days after the date of theEncounter. The data comes from all [facility]. Test Date/Time Test Type Test Details Facility Name Jul 05, 2024 12:00 AM Laboratory - Chemi stry Order LIPID PANEL (STL) GREEN LI/HEP BLD/PLAS PLASMA SP ONCE [facility] Vital Signs: All taken on the encounter date This section contains inpatient and outpatient Vital Signs collected on the date of the Encounter. Date/Time Temperature Pulse Blood Pressure Respiratory Rate SP02 Pain Height Weight Body Mass Index Source Jul 06, 2024 07:44 AM 148/88 [facility] Jul 06, 2024 07:44 AM 98.3 71 147/85 18 97 0 164.9 24 [facility] Encounter Notes: All associated encounter notes This section contains the clinical notes associated to the Encounter. Date/Time Encounter Note(s) Provider Source Jul 06, 2024 08:15 AM PULMONARY NOTE: LOCAL TITLE: PFT LAB COVID-[address] STANDARD TITLE: PULMONARY NOTE DATE OF NOTE: JUL 06, 2024@08:15 ENTRY DATE: JUL 06, 2024@08:15:42 AUTHOR: BRENT AVILA EXP COSIGNER: URGENCY: STATUS: COMPLETED 1) Have you experienced any of the symptoms of COVID-19 in past 48 hours? Fever or Chills: No Cough: No Sore Throat: No Shortness of breath or difficulty breathing (more than your usual baseline): No Fatigue: No Muscle or body aches: No Headache: No New loss of taste or smell: No Congestion or runny nose: No Nausea or vomiting: No Diarrhea: No 2) Are you currently isolating or quarantining because you tested positive for COVID-19 or are you worried you may be sick with COVID-19? No Comments: /delmy/ BRENT AVILA REGISTERED RESPIRATORY THERAPIST Signed: 07/06/2024 08:22 BRENT AVILA [facility]
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
[2025-02-02 09:41] VITALS: BP 133/81; PULSE 69; RESP 16; TEMP 36.9; O2SAT 97
--- OUTSIDE RECORDS SUMMARY | 2025-02-02 09:44 | XMS_ITS | Continuity of Care Document ---
Author Organization [facility] Address [id number] [place] [address] [address] [place] [address] Phone Care Team Providers Care Fruit Thinner Machine Operator Name Role Phone Carolyn Vargas Unavailable Unavailable Advance Directives Directive Yes / No Effective Date File Name No Information Encounters Encounter Description Practice Location Reason(s) For Visit Diagnoses Date Provider Providers Copied on Encounter [facility], [address], [place], [place], [id number], [place] tel:[phone] [facility] No Information 4-200 4 Alicia Leon. [address] , [address], [place], [address], [place]. tel:[phone] Family History Family Member Type Diagnosis Age At Onset No Information Payers Payer name Insurance type Covered green party ID Authoriza tiradha(s) Taylor Gonsales [id number] Social History Type Description Quantity Date Captured [...]
--- OUTSIDE RECORDS SUMMARY | 2025-02-02 09:44 | XMS_ITS | Continuity of Care Document ---
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 It does not include entries that were removed or entered in error. Problem Status Onset Date Problem Type Date of Resolution Comments Source COPD - Chronic Obstructive Pulmonary Disease ([facility] [id number]) Active Condition [facility] Current drinker Active Condition [facility] Depression Active Condition [facility] Erectile Dysfunction ([facility] [id number]) Active Condition [facility] Ex-tobacco user Active Condition [facility] Exposure to potentially hazardous substance ([facility] [id number]) Active Condition Apr 20 4 Entered By: ROMIAN RAO Comment: Entered automatically through LAYA Problem List documentation program [facility] HTN - Hypertension ([facility] [id number]) Active Condition [facility] Obstructive sleep apnea syndrome Active Condition [facility] Diagnosis: ICD-10-CM G47.33 Obstructive sleep apnea (adult) (pediatric) Active Diagnosis [facility] Diagnosis: ICD-10-CM F33.1 Major depressive disorder, recurrent, moderate Active Diagnosis [facility] Diagnosis: ICD-10-CM G47.30 Sleep apnea, unspecified Active Diagnosis [facility] Diagnosis: ICD-10-CM Z12.2 Encntr screen for malignant neoplasm of respiratory organs Active Diagnosis [facility] Diagnosis: ICD-10-CM J44.9 Chronic obstructive pulmonary disease, unspecified Active Diagnosis [facility] Diagnosis: ICD-10-CM R97.20 Elevated prostate specific antigen [PSA] Active Diagnosis [facility] Diagnosis: ICD-10-CM R97.21 Rising PSA fol treatment for malignant neoplasm of prostate Active Diagnosis [facility] Diagnosis: ICD-10-CM R19.5 Other fecal abnormalities Active Diagnosis [facility] Diagnosis: ICD-10-CM Z23 Encounter for immunization Active Diagnosis [facility] Diagnosis: ICD-10-CM I10 Essential (primary) hypertension Active Diagnosis [facility] Diagnosis: ICD-10-CM F32.A Depression, unspecified Active Diagnosis [facility] Diagnosis: ICD-10-CM R91.8 Other nonspecific abnormal finding of lung field Active Diagnosis [facility] Diagnosis: ICD-10-CM F33.0 Major depressive disorder, recurrent, mild Active Diagnosis [facility] Diagnosis: ICD-10-CM R76.0 Raised antibody titer Active Diagnosis [facility] Diagnosis: ICD-10-CM F43.12 Post-traumatic stress disorder, chronic Active Diagnosis [facility] Diagnosis: ICD-10-CM Z53.21 Proc/trtmt not crd out d/t pt lv bef seen by [facility] care [facility] Active Diagnosis [facility] Diagnosis: ICD-10-CM Z55.9 Problems related to education and literacy, unspecified Active Diagnosis [facility] Diagnosis: ICD-10-CM F41.1 Generalized anxiety disorder Active Diagnosis [facility] Diagnosis: ICD-10-CM Z00.00 Encntr for general adult medical exam w/o abnormal findings Active Diagnosis [facility] Medications Combined list of outpatient medications [...] . RESPIR ATORY (INHAL ATION) ACTIVE 01/06/2026 [id number] SENG COKER RRI 2024 4 [facility] ALBUTEROL SO4 90MCG/ACTUA T (CFC-F) INHL,ORAL,8 .5GM INHALE 2 PUFFS ORAL INHALATI ON FOUR TIMES A DAY NEEDED FOR COPD SHAKE WELL. RINSE MOUTHPIE CE FREQUENT LY TO PREVENT CLOGGING . RESPIR ATORY (INHAL ATION) DISCONT INUED (EDIT) 04/17/2025 [id number] NITHYA CASTILLO 2023 3 [facility] ATORVASTATI N CA 40MG TAB TAKE ONE-HALF TABLET BY MOUTH EVERY EVENING FOR HIGH CHOLESTE ROL ORAL ACTIVE 10/15/2025 [id number] 5 NITHYA CASTILLO 2024 45 [facility] FAMOTIDINE 20MG TAB TAKE ONE TABLET BY MOUTH TWICE A DAY FOR GASTROES OPHAGEAL REFLUX DISEASE ORAL 10/04/2024 [id number] 4 RYANNE STOKES 2023 180 [facility] FLUTICASONE 250MCG/SALM ETEROL 50MCG INHL,ORAL,D ISKUS,60 INHALE 1 INHALATI ON ORAL INHALATI ON TWICE A DAY FOR COPD (OPEN DISKUS; CLICK ONLY ONCE; MAY INHALE TWICE TO COMPLETE DOSE; CLOSE WHEN FINISHED ) RINSE MOUTH AND SPIT AFTER EACH USE. RESPIR ATORY (INHAL ATION) DISCONT INUED BY PROVIDE R 04/17/2025 [id number] 4 NITHYA CASTILLO 2023 3 [facility] LISINOPRIL 40MG TAB TAKE ONE-HALF TABLET BY MOUTH ONCE A DAY FOR HIGH BLOOD PRESSURE ORAL ACTIVE 04/17/2025 [id number] 5 NITHYA CASTILLO 2023 45 [facility] OLODATEROL 2.5MCG/TIOT ROPIUM 2.5MCG/ACTU AT INHL,ORAL,6 0D,4GM INHALE 2 PUFFS BY ORAL INHALATI ON ONCE A DAY FOR COPD ADMINIST ER AT SAME TIME EACH DAY RESPIR ATORY (INHAL ATION) SUSPEND ED 01/06/2026 [id number] 5 SENG COKER RRI 2024 3 [facility] OLODATEROL 2.5MCG/TIOT ROPIUM 2.5MCG/ACTU AT INHL,ORAL,6 0D,4GM INHALE 2 PUFFS BY ORAL INHALATI ON ONCE A DAY FOR COPD ADMINIST ER AT SAME TIME EACH DAY RESPIR ATORY (INHAL ATION) DISCONT INUED 07/07/2025 [id number] 5 RYANNE STOKES 2023 3 [facility] SERTRALINE HCL 100MG TAB TAKE ONE TABLET BY MOUTH EVERY MORNING ORAL SUSPEND ED 10/13/2025 [id number] 5 NITHYA CASTILLO 2024 90 [facility] SERTRALINE HCL 100MG TAB TAKE ONE TABLET BY MOUTH EVERY MORNING ORAL DISCONT INUED (EDIT) 09/01/2025 [id number] 4 NITHYA CASTILLO 2023 30 [facility] SERTRALINE HCL 100MG TAB TAKE ONE-HALF TABLET BY MOUTH EVERY MORNING FOR DEPRESSI ON ORAL DISCONT INUED (EDIT) 05/31/2025 [id number] 4 NITHYA CASTILLO 2023 15 [facility] TADALAFIL 20MG TAB TAKE ONE TABLET BY MOUTH EVERY WEEK NEEDED FOR ERECTILE DYSFUNCT ION (TAKE 30 MINUTES PRIOR TO SEXUAL ACTIVITY ) - LIMIT 18 DOSES PER 90 DAYS ORAL ACTIVE 10/13/2025 [id number] 5 NITHYA CASTILLO 2024 18 [facility] Immunizations Combined list of available immunizations from the Department of Defense and [facility] facilities. Immunization Series Date Given Administered By Site Reaction Lot Number CVX Code Drug Content Development Manager Status Comments Source COVID-19 ([employer]), MRNA, LNP-S, PF, DEVAUGHN-SUCROSE, 30 MCG/0.3 ML (AGES 12+ YEARS) 2024 CELESTE LACEY RIGHT DELTO ID [id number] complet ed Completed Series, ADMINISTE RED AT [facility] INFLUENZA, HIGH-DOSE, TRIVALENT, PF 2024 CELESTE LACEY LEFT DELTO ID [id number] 135 complet ed Completed Series, ADMINISTE RED AT [facility] Results Combined list of [...] Oct 14, 2024 02:56 PM Reporting Lab: [facility] [address] Performing Lab: [facility] [address] [place] [phone] [place] [address] [facility] LIPID PANEL (STL) TRIGLYCERI DE [MASS/VOLU ME] IN SERUM OR PLASMA 94 mg/dL 0 - 150 01/13 Specimen Type: PLASMA No comment entered. Ordering Provider: YAYA CASTILLO Report Released Date/Time: Oct 14, 2024 02:56 PM Reporting Lab: [facility] [address] Performing Lab: [facility] [address] [place] [phone] [facility] LIPID PANEL (STL) CHOLESTERO L IN LDL [MASS/VOLU ME] IN SERUM OR PLASMA BY CALCULABREANNAO N 93 mg/dL 01/13 Specimen Type: PLASMA No comment entered. Ordering Provider: YAYA CASTILLO Report Released Date/Time: Oct 14, 2024 02:56 PM Reporting Lab: [facility] [address] Performing Lab: [facility] [address] [place] [phone] [facility] LIPID PANEL (STL) CHOLESTERO L IN HDL [MASS/VOLU ME] IN SERUM OR PLASMA 48 mg/dL 40 01/13 Specimen Type: PLASMA No comment entered. Ordering Provider: YAYA CASTILLO Report Released Date/Time: Oct 14, 2024 02:56 PM Reporting Lab: [place] [address] [facility] [address] Performing Lab: [address] [facility] PROST. SPECIFIC AG.(PB-S TL) PROSTATE [...] Jan 05, 2025 05:42 PM Reporting Lab: [address] [address] Performing Lab: [address] URINALYS IS (STL-PB) COLOR OF URINE Colorles s 10/17 Specimen Type: URINE No comment entered. Ordering Provider: YAYA CASTILLO Report Released Date/Time: Oct 14, 2024 12:15 PM Reporting Lab: [address] [address] Performing Lab: [address] [phone] [place] [address] [facility] URINALYS IS (STL-PB) BILIRUBIN. TOTAL [PRESENCE] IN URINE BY TEST STRIP Negative mg/dL 10/17 Specimen Type: URINE No comment entered. Ordering Provider: YAYA CASTILLO Report Released Date/Time: Oct 14, 2024 12:15 PM Reporting Lab: [address] [address] Performing Lab: [address] [phone] [place] [address] [facility] URINALYS IS (STL-PB) PH OF URINE BY TEST STRIP 7.0 5.0 - 8.0 10/17 Specimen Type: URINE No comment entered. Ordering Provider: YAYA CASTILLO Report Released Date/Time: Oct 14, 2024 12:15 PM Reporting Lab: [facility] [address] [place], [place] [phone] Performing Lab: [facility] [place] [phone] [place] [address] [facility] URINALYS IS (STL-PB) APPEARANCE OF URINE Clear 10/17 Specimen Type: URINE No comment entered. Ordering Provider: YAYA CASTILLO Report Released Date/Time: Oct 14, 2024 12:15 PM Reporting Lab: [place] [address] Performing Lab: [place] [phone] [facility] URINALYS IS (STL-PB) NITRITE [PRESENCE] IN URINE BY TEST STRIP Negative mg/dL 10/17 Specimen Type: URINE No comment entered. Ordering Provider: YAYA CASTILLO Report Released Date/Time: Oct 14, 2024 12:15 PM Reporting Lab: [facility] [place] [address] Performing Lab: [place] [address] [place] [phone] [facility] URINALYS IS (STL-PB) GLUCOSE [MASS/VOLU ME] IN URINE BY TEST STRIP Normalmg /dL 10/17 Specimen Type: URINE No comment entered. Ordering Provider: YAYA CASTILLO Report Released Date/Time: Oct 14, 2024 12:15 PM Reporting Lab: [facility] [place] [phone] Performing Lab: [facility] [address] [place], [place] [phone] [address] [facility] URINALYS IS (STL-PB) PROTEIN [MASS/VOLU ME] IN URINE BY TEST STRIP Negative mg/dL 10/17 Specimen Type: URINE No comment entered. Ordering Provider: YAYA CASTILLO Report Released Date/Time: Oct 14, 2024 12:15 PM Reporting Lab: [facility] [address] Performing Lab: [facility] [address] [facility] [address] [facility] URINALYS IS (STL-PB) URN.UROBIL INOGEN Normalmg /dL 10/17 Specimen Type: URINE No comment entered. Ordering Provider: YAYA CASTILLO Report Released Date/Time: Oct 14, 2024 12:15 PM Reporting Lab: [facility] [address] Performing Lab: [place] [address] [facility] [address] [facility] URINALYS IS (STL-PB) HEMOGLOBIN [MASS/VOLU ME] IN URINE BY TEST STRIP Negative mg/dL 10/17 Specimen Type: URINE No comment entered. Ordering Provider: YAYA CASTILLO Report Released Date/Time: Oct 14, 2024 12:15 PM Reporting Lab: [facility] [address] Performing Lab: [facility] [phone] [facility] URINALYS IS (STL-PB) KETONES [MASS/VOLU ME] IN URINE BY TEST STRIP Negative mg/dL 10/17 Specimen Type: URINE No comment entered. Ordering Provider: YAYA CASTILLO Report Released Date/Time: Oct 14, 2024 12:15 PM Reporting Lab: [facility] [address] Performing Lab: [facility] [phone] [facility] URINALYS IS (STL-PB) URN.LEUK.E ST. Negative mg/dL 10/17 Specimen Type: URINE No comment entered. Ordering Provider: YAYA CASTILLO Report Released Date/Time: Oct 14, 2024 12:15 PM Reporting Lab: [facility] [address] Performing Lab: [facility] [address] [place] [phone] [facility] URINALYS IS (STL-PB) SPECIFIC GRAVITY OF URINE 1.004 10/17 L Specimen Type: URINE No comment entered. Ordering Provider: YAYA CASTILLO Report Released Date/Time: Oct 14, 2024 12:15 PM Reporting Lab: [place] [address] [facility] [address] Performing Lab: [address] [address] [facility] LIPID PANEL (STL) CHOLESTERO L [MASS/VOLU ME] IN SERUM OR PLASMA 241 mg/dL 0 - 200 10/13 H Specimen Type: PLASMA No comment entered. Ordering Provider: YAYA CASTILLO Report Released Date/Time: Oct 12, 2024 02:07 PM Reporting Lab: [place] [address] [facility] [address] Performing Lab: [address] [address] [facility] LIPID PANEL (STL) TRIGLYCERI DE [MASS/VOLU ME] IN SERUM OR PLASMA 111 mg/dL 0 - 150 10/13 Specimen Type: PLASMA No comment entered. Ordering Provider: YAYA CASTILLO Report Released Date/Time: Oct 12, 2024 02:07 PM Reporting Lab: [facility] [address] Performing Lab: [address] [phone] [facility] LIPID PANEL (STL) CHOLESTERO L IN LDL [MASS/VOLU ME] IN SERUM OR PLASMA BY CALCLUANNE N 171 mg/dL 10/13 Specimen Type: PLASMA No comment entered. Ordering Provider: YAYA CASTILLO Report Released Date/Time: Oct 12, 2024 02:07 PM Reporting Lab: [address] [address] Performing Lab: [address] [facility] LIPID PANEL (STL) CHOLESTERO L IN HDL [MASS/VOLU ME] IN SERUM OR PLASMA 48 mg/dL 40 10/13 Specimen Type: PLASMA No comment entered. Ordering Provider: YAYA CASTILLO Report Released Date/Time: Oct 12, 2024 02:07 PM Reporting Lab: [address] [phone] Performing Lab: [address] [facility] PROST. SPECIFIC AG.(PB-S TL) PROSTATE [...] Oct 12, 2024 02:07 PM Reporting Lab: [place] [address] Performing Lab: [address] [facility] OCCULT BLOOD FIT X1 SCREEN HEMOGLOBIN .GASTROINT ESTINAL.LO WER [PRESENCE] IN STOOL BY IMMUNOASSA Y POSITIVE 09/19 Specimen Type: FECES No comment entered. Ordering Provider: YAYA CASTILLO Report Released Date/Time: Aug 31, 2024 08:29 AM Reporting Lab: [address] [address] Performing Lab: [address] [phone] [place] [address] [facility] CBC LEUKOCYTES [#/VOLUME] IN BLOOD BY AUTOMATED COUNT 5.2 10*3/uL 3.6 - 11.2 09/19 Specimen Type: BLOOD No comment entered. Ordering Provider: YAYA CASTILLO Report Released Date/Time: Aug 31, 2024 08:28 AM Reporting Lab: [address] [address] Performing Lab: [phone] [facility] CBC ERYTHROCYT ES [#/VOLUME] IN BLOOD BY AUTOMATED COUNT 5.01 10*6/uL 4.10 - 5.70 09/19 Specimen Type: BLOOD No comment entered. Ordering Provider: YAYA CASTILLO Report Released Date/Time: Aug 31, 2024 08:28 AM Reporting Lab: [place] [address] Performing Lab: [address] [facility] CBC HEMOGLOBIN [MASS/VOLU ME] IN BLOOD 15.2 g/dL 13.1 - 16.8 09/19 Specimen Type: BLOOD No comment entered. Ordering Provider: YAYA CASTILLO Report Released Date/Time: Aug 31, 2024 08:28 AM Reporting Lab: [address] [address] Performing Lab: [address] [phone] [place] [address] [facility] CBC HEMATOCRIT [VOLUME FRACTION] OF BLOOD 44.5 38.2 - 48.4 09/19 Specimen Type: BLOOD No comment entered. Ordering Provider: YAYA CASTILLO Report Released Date/Time: Aug 31, 2024 08:28 AM Reporting Lab: [place] [address] Performing Lab: [phone] [place] [address] [facility] CBC MCV [ENTITIC VOLUME] BY AUTOMATED COUNT 88.8 fL 80.0 - 100.0 09/19 Specimen Type: BLOOD No comment entered. Ordering Provider: YAYA CASTILLO Report Released Date/Time: Aug 31, 2024 08:28 AM Reporting Lab: [facility] [address] [place] [address] Performing Lab: [facility] [address] [place] [phone] [place] [address] [facility] CBC MCH [ENTITIC MASS] BY AUTOMATED COUNT 30.3 pg 27.0 - 34.0 09/19 Specimen Type: BLOOD No comment entered. Ordering Provider: YAYA CASTILLO Report Released Date/Time: Aug 31, 2024 08:28 AM Reporting Lab: [place] [address] Performing Lab: [address] [facility] CBC MCHC [MASS/VOLU ME] BY AUTOMATED COUNT 34.2 g/dL 33.0 - 36.0 09/19 Specimen Type: BLOOD No comment entered. Ordering Provider: YAYA CASTILLO Report Released Date/Time: Aug 31, 2024 08:28 AM Reporting Lab: [facility] [address] [place] [address] Performing Lab: [place] [phone] [facility] CBC PLATELETS [#/VOLUME] IN BLOOD BY AUTOMATED COUNT 247 10*3/uL 150 - 400 09/19 Specimen Type: BLOOD No comment entered. Ordering Provider: YAYA CASTILLO Report Released Date/Time: Aug 31, 2024 08:28 AM Reporting Lab: [facility] [address] [place] [address] Performing Lab: [address] [facility] CBC PLATELET MEAN VOLUME [ENTITIC VOLUME] IN BLOOD BY AUTOMATED COUNT 10.0 fL 7.5 - 11.2 09/19 Specimen Type: BLOOD No comment entered. Ordering Provider: YAYA CASTILLO Report Released Date/Time: Aug 31, 2024 08:28 AM Reporting Lab: [facility] [address] [facility] [address] Performing Lab: [facility] [address] [facility] [address] [facility] CBC ERYTHROCYT E DISTRIBUTI ON WIDTH [RATIO] BY AUTOMATED COUNT 12.1 11.8 - 15.1 09/19 Specimen Type: BLOOD No comment entered. Ordering Provider: YAYA CASTILLO Report Released Date/Time: Aug 31, 2024 08:28 AM Reporting Lab: [facility] [address] [facility] [address] Performing Lab: [facility] [address] [facility] [address] [facility] CBC LYMPHOCYTE S/100 LEUKOCYTES IN BLOOD BY AUTOMATED COUNT 36 09/19 Specimen Type: BLOOD No comment entered. Ordering Provider: YAYA CASTILLO Report Released Date/Time: Aug 31, 2024 08:28 AM Reporting Lab: [facility] [address] [facility] [address] Performing Lab: [facility] [address] [facility] [address] [facility] CBC MONOCYTES/ 100 LEUKOCYTES IN BLOOD BY AUTOMATED COUNT 7 09/19 Specimen Type: BLOOD No comment entered. Ordering Provider: YAYA CASTILLO Report Released Date/Time: Aug 31, 2024 08:28 AM Reporting Lab: [facility] [address] [facility] [address] Performing Lab: [facility] [address] [facility] [address] [facility] CBC NEUTROPHIL S/100 LEUKOCYTES IN BLOOD BY AUTOMATED COUNT 55 09/19 Specimen Type: BLOOD No comment entered. Ordering Provider: YAYA CASTILLO Report Released Date/Time: Aug 31, 2024 08:28 AM Reporting Lab: [facility] [address] [facility] [address] Performing Lab: [facility] [address] [place] [phone] [facility] CBC EOSINOPHIL S/100 LEUKOCYTES IN BLOOD BY AUTOMATED COUNT 1 09/19 Specimen Type: BLOOD No comment entered. Ordering Provider: YAYA CASTILLO Report Released Date/Time: Aug 31, 2024 08:28 AM Reporting Lab: [address] [phone] Performing Lab: [address] [address] [facility] CBC BASOPHILS/ 100 LEUKOCYTES IN BLOOD BY AUTOMATED COUNT 0 09/19 Specimen Type: BLOOD No comment entered. Ordering Provider: YAYA CASTILLO Report Released Date/Time: Aug 31, 2024 08:28 AM Reporting Lab: [address] [address] Performing Lab: [address] [address] [facility] CBC LYMPHOCYTE S [#/VOLUME] IN BLOOD BY AUTOMATED COUNT 1.88 10*3/uL 0.77 - 4.50 09/19 Specimen Type: BLOOD No comment entered. Ordering Provider: YAYA CASTILLO Report Released Date/Time: Aug 31, 2024 08:28 AM Reporting Lab: [address] [address] Performing Lab: [address] [address] [facility] CBC MONOCYTES [#/VOLUME] IN BLOOD BY AUTOMATED COUNT 0.37 10*3/uL 0.19 - 0.80 09/19 Specimen Type: BLOOD No comment entered. Ordering Provider: YAYA CASTILLO Report Released Date/Time: Aug 31, 2024 08:28 AM Reporting Lab: [address] [phone] Performing Lab: [address] [address] [facility] CBC NEUTROPHIL S [#/VOLUME] IN BLOOD BY AUTOMATED COUNT 2.88 10*3/uL 2.10 - 8.00 09/19 Specimen Type: BLOOD No comment entered. Ordering Provider: YAYA CASTILLO Report Released Date/Time: Aug 31, 2024 08:28 AM Reporting Lab: [address] [address] Performing Lab: [place] [phone] [facility] CBC EOSINOPHIL S [#/VOLUME] IN BLOOD BY AUTOMATED COUNT 0.05 10*3/uL 0.00 - 0.60 09/19 Specimen Type: BLOOD No comment entered. Ordering Provider: YAYA CASTILLO Report Released Date/Time: Aug 31, 2024 08:28 AM Reporting Lab: [place] [address] Performing Lab: [place] [phone] [facility] CBC BASOPHILS [#/VOLUME] IN BLOOD BY AUTOMATED COUNT 0.02 10*3/uL 0.00 - 0.20 09/19 Specimen Type: BLOOD No comment entered. Ordering Provider: YAYA CASTILLO Report Released Date/Time: Aug 31, 2024 08:28 AM Reporting Lab: [place] [address] Performing Lab: [place] [phone] [facility] COMPREHE NSIVE METABOLI C PANEL CREATININE [MASS/VOLU ME] IN SERUM OR PLASMA 1.01 mg/dL 0.7 - 1.3 09/19 Specimen Type: PLASMA Comment: No hemolysis noted. Ordering Provider: YAYA CASTILLO Report Released Date/Time: Aug 31, 2024 08:28 AM Reporting Lab: [place] [address] Performing Lab: [address] [phone] [place] [address] [facility] COMPREHE NSIVE METABOLI C PANEL UREA NITROGEN [MASS/VOLU ME] IN SERUM OR PLASMA 7.9 mg/dL 9.0 - 25.0 09/19 L Specimen Type: PLASMA Comment: No hemolysis noted. Ordering Provider: YAYA CASTILLO Report Released Date/Time: Aug 31, 2024 08:28 AM Reporting Lab: [address] [address] Performing Lab: [place] [address] [facility] [address] [facility] COMPREHE NSIVE METABOLI C PANEL GLUCOSE [MASS/VOLU ME] IN SERUM OR PLASMA 105 mg/dL 72 - 99 09/19 H Specimen Type: PLASMA Comment: No hemolysis noted. Ordering Provider: YAYA CASTILLO Report Released Date/Time: Aug 31, 2024 08:28 AM Reporting Lab: [address] [id number] Performing Lab: [address] [address] [facility] COMPREHE NSIVE METABOLI C PANEL SODIUM [MOLES/VOL UME] IN SERUM OR PLASMA 137 meq/L 136 - 145 09/19 Specimen Type: PLASMA Comment: No hemolysis noted. Ordering Provider: YAYA CASTILLO Report Released Date/Time: Aug 31, 2024 08:28 AM Reporting Lab: [address] [address] Performing Lab: [address] [address] [facility] COMPREHE NSIVE METABOLI C PANEL POTASSIUM [MOLES/VOL UME] IN SERUM OR PLASMA 4.1 meq/L 3.5 - 5 09/19 Specimen Type: PLASMA Comment: No hemolysis noted. Ordering Provider: YAYA CASTILLO Report Released Date/Time: Aug 31, 2024 08:28 AM Reporting Lab: [facility] [address] [place] [address] Performing Lab: [facility] [address] [facility] [address] [facility] COMPREHE NSIVE METABOLI C PANEL CHLORIDE [MOLES/VOL UME] IN SERUM OR PLASMA 103 meq/L 98 - 107 09/19 Specimen Type: PLASMA Comment: No hemolysis noted. Ordering Provider: YAYA CASTILLO Report Released Date/Time: Aug 31, 2024 08:28 AM Reporting Lab: [facility] [address] [facility] [address] Performing Lab: [facility] [address] [facility] [address] [facility] COMPREHE NSIVE METABOLI C PANEL CARBON DIOXIDE, TOTAL [MOLES/VOL UME] IN SERUM OR PLASMA 25 meq/L 22 - 31 09/19 Specimen Type: PLASMA Comment: No hemolysis noted. Ordering Provider: YAYA CASTILLO Report Released Date/Time: Aug 31, 2024 08:28 AM Reporting Lab: [facility] [address] [facility] [address] Performing Lab: [facility] [address] [facility] [address] [facility] COMPREHE NSIVE METABOLI C PANEL CALCIUM [MASS/VOLU ME] IN SERUM OR PLASMA 9.4 mg/dL 8.4 - 10.4 09/19 Specimen Type: PLASMA Comment: No hemolysis noted. Ordering Provider: YAYA CASTILLO Report Released Date/Time: Aug 31, 2024 08:28 AM Reporting Lab: [facility] [address] [facility] [address] Performing Lab: [facility] [address] [place] [address] [facility] COMPREHE NSIVE METABOLI C PANEL PROTEIN [MASS/VOLU ME] IN SERUM OR PLASMA 7.3 g/dL 6 - 8.6 09/19 Specimen Type: PLASMA Comment: No hemolysis noted. Ordering Provider: YAYA CASTILLO Report Released Date/Time: Aug 31, 2024 08:28 AM Reporting Lab: [facility] [address] [facility] [address] Performing Lab: [facility] [address] [facility] COMPREHE NSIVE METABOLI C PANEL ALBUMIN [MASS/VOLU ME] IN SERUM OR PLASMA 4.2 g/dL 3.4 - 5 09/19 Specimen Type: PLASMA Comment: No hemolysis noted. Ordering Provider: YAYA CASTILLO Report Released Date/Time: Aug 31, 2024 08:28 AM Reporting Lab: [address] [address] Performing Lab: [address] [phone] [place] [address] [facility] COMPREHE NSIVE METABOLI C PANEL BILIRUBIN. TOTAL [MASS/VOLU ME] IN SERUM OR PLASMA 0.7 mg/dL 0.2 - 1.2 09/19 Specimen Type: PLASMA Comment: No hemolysis noted. Ordering Provider: YAYA CASTILLO Report Released Date/Time: Aug 31, 2024 08:28 AM Reporting Lab: [address] [address] Performing Lab: [place] [address] [facility] [address] [facility] COMPREHE NSIVE METABOLI C PANEL ALKALINE PHOSPHATAS E [ENZYMATIC ACTIVITY/V OLUME] IN SERUM OR PLASMA 69 U/L 40 - 150 09/19 Specimen Type: PLASMA Comment: No hemolysis noted. Ordering Provider: YAYA CASTILLO Report Released Date/Time: Aug 31, 2024 08:28 AM Reporting Lab: [facility] [address] [place] [address] Performing Lab: [address] [address] [facility] COMPREHE NSIVE METABOLI C PANEL ASPARTATE AMINOTRANS FERASE [ENZYMATIC ACTIVITY/V OLUME] IN SERUM OR PLASMA 33 U/L 5 - 34 09/19 Specimen Type: PLASMA Comment: No hemolysis noted. Ordering Provider: YAYA CASTILLO Report Released Date/Time: Aug 31, 2024 08:28 AM Reporting Lab: [facility] [address] [place] [address] Performing Lab: [address] [phone] [place] [address] [facility] COMPREHE NSIVE METABOLI C PANEL ALANINE AMINOTRANS FERASE [ENZYMATIC ACTIVITY/V OLUME] IN SERUM OR PLASMA 16 U/L 8 - 40 09/19 Specimen Type: PLASMA Comment: No hemolysis noted. Ordering Provider: YAYA CASTILLO Report Released Date/Time: Aug 31, 2024 08:28 AM Reporting Lab: [place] [address] Performing Lab: [address] [facility] COMPREHE NSIVE METABOLI C PANEL GLOMERULAR FILTRATION RATE/1.73 SQ M.PREDICTE D [VOLUME RATE/AREA] IN SERUM, PLASMA OR BLOOD BY CREATININE -BASED FORMULA (CKD-EPI 2020) 81.5 60 09/19 Specimen Type: PLASMA Comment: No hemolysis noted. Ordering Provider: YAYA CASTILLO Report Released Date/Time: Aug 31, 2024 08:28 AM Reporting Lab: [facility] [address] [place] [phone] Performing Lab: [phone] [place] [address] [facility] TSH (MA-PB) THYROTROPI N [UNITS/VOL UME] IN SERUM OR PLASMA 1.667 u[IU]/mL 0.47 - 5 09/19 Specimen Type: SERUM No comment entered. Ordering Provider: YAYA CASTILLO Report Released Date/Time: Aug 31, 2024 08:28 AM Reporting Lab: [facility] [address] [place] [phone] Performing Lab: [address] [phone] [place] [address] [facility] CELIAC DISEASE PANEL (STL-MRN ) IGA [...] = 15.0 Antibody detected Test Performed by [facility], [address] [place], [place] Juan David Short M.D., Ph.D., Director of Laboratorie s , CLIA [id number] Ordering Provider: YAYA CASTILLO Report Released Date/Time: May 30, 2024 04:14 PM Reporting Lab: [address] [phone] Performing Lab: [facility] [id number] [place] [address] [facility] CELIAC DISEASE PANEL ([facility]-MRN ) TISSUE TRANSGLUTA MINASE IGA AB [UNITS/VOL [...] = 15.0 Antibody detected Test Performed by [facility], [address] [place], [place] Juan David Short M.D., Ph.D., Director of Laboratorie s , CLIA [id number] Ordering Provider: YAYA CASTILLO Report Released Date/Time: May 30, 2024 04:14 PM Reporting Lab: [facility] [address] [facility] [address] Performing Lab: [facility] [address] [facility] Vital Signs Combined list of inpatient and outpatient Vital Signs from Department of Defense and Veterans Affairs, ranging from 12 months to all on record, depending upon the facility. Vital Sign Value Date Comments Source SYSTOLIC BLOOD PRESSURE 129 01/05/2025 09:03:57 [facility] DIASTOLIC BLOOD PRESSURE 80 01/05/2025 09:03:57 [facility] PULSE OXIMETRY 98 01/05/2025 09:03:57 S [facility] WEIGHT 174.5 01/05/2025 09:03:57 [facility] BMI 24 kg/m2 01/05/2025 09:03:57 [facility] PAIN 0 01/05/2025 09:03:57 [facility] TEMPERATURE 98.3 01/05/2025 09:03:57 [facility] PULSE 72 01/05/2025 09:03:57 . [facility] RESPIRATION 16 01/05/2025 09:03:57 [facility] SYSTOLIC BLOOD PRESSURE 148 01/02/2025 12:44:16 [facility] DIASTOLIC BLOOD PRESSURE 88 01/02/2025 12:44:16 [facility] PULSE OXIMETRY 97 01/02/2025 12:44:16 S [facility] WEIGHT 174.7 01/02/2025 12:44:16 [facility] BMI 24 kg/m2 01/02/2025 12:44:16 [facility] PAIN 0 01/02/2025 12:44:16 [facility] HEIGHT 71 01/02/2025 12:44:16 [facility] TEMPERATURE 97.6 01/02/2025 12:44:16 [facility] PULSE 65 01/02/2025 12:44:[address] [facility] RESPIRATION 20 01/02/2025 12:44:16 [facility] SYSTOLIC BLOOD PRESSURE 151 11/09/2024 07:49:52 [facility] DIASTOLIC BLOOD PRESSURE 79 11/09/2024 07:49:52 [facility] PULSE OXIMETRY 98 11/09/2024 07:49:52 [facility] WEIGHT 168.1 11/09/2024 07:49:52 [facility] BMI 24 kg/m2 11/09/2024 07:49:52 [facility] Isra [facility] PAIN 0 11/09/2024 07:49:52 [facility] HEIGHT 70.5 11/09/2024 07:49:52 [facility] TEMPERATURE 97.3 11/09/2024 07:49:52 [facility] PULSE 67 11/09/2024 07:49:52 [facility] Isra [facility] RESPIRATION 18 11/09/2024 07:49:52 [facility] SYSTOLIC BLOOD PRESSURE 134 10/12/2024 13:51:56 [facility] DIASTOLIC BLOOD PRESSURE 78 10/12/2024 13:51:56 [facility] PULSE OXIMETRY 98 10/12/2024 13:51:56 [facility] WEIGHT 171 10/12/2024 13:51:56 [facility] BMI 25 kg/m2 10/12/2024 13:51:56 [facility] PAIN 0 10/12/2024 13:51:56 [facility] TEMPERATURE 97.8 10/12/2024 13:51:56 [facility] PULSE 65 10/12/2024 13:51:56 [facility] RESPIRATION 20 10/12/2024 13:51:56 [facility] SYSTOLIC BLOOD PRESSURE 147 07/06/2024 07:44:44 [facility] DIASTOLIC BLOOD PRESSURE 85 07/06/2024 07:44:44 [facility] PULSE OXIMETRY 97 07/06/2024 07:44:44 [facility] WEIGHT 164.9 07/06/2024 07:44:44 [facility] BMI 24 kg/m2 07/06/2024 07:44:44 [facility] PAIN 0 07/06/2024 07:44:44 [facility] TEMPERATURE 98.3 07/06/2024 07:44:44 [facility] PULSE 71 07/06/2024 07:44:44 [facility] RESPIRATION 18 07/06/2024 07:44:44 [facility] Encounters Combined list of: 1) Encounters from Department of [facility] facilities going backup to the last 18 months, not all [place] inpatient encounters are included; 2) Encounters from the Department of [facility] facilities going backup to 280 months. Location Location Details Encounter Type Encounter Number Reason For Visit Attending Provider ADM Date DC Date Status Disposition Source [facility] Outpatient Encounter [id number] 04/13 [facility] OFFICE O/P NEW LOW 30 MIN [id number] Diagnos is: ICD-10- CM Z00.00 Encntr for general adult medical exam w/o abnorma l finding s JONATHANT AYSERA L 04/15 [facility] PSYTX W PT 30 MINUTES [id number] Diagnos is: ICD-10- CM F41.1 General ized anxiety disorde Isidoro Pollack 04/15 [facility] FEE [id number] Diagnos is: ICD-10- CM Z55.9 Problem s related to educati on and literac y, unspeci fiLEIDA Hightower O 04/15 [facility] N [facility] Outpatient Encounter [id number] 04/22 [facility] Outpatient Encounter [id number] Roel CASTILLO 04/25 [facility] Outpatient Encounter [id number] Diagnos is: ICD-10- CM Z53.21 Proc/tr tmt not crd out d/t pt lv bef seen by [facility] prov REJI SINGH SA 05/05 [facility] PSYTX W PT 30 MINUTES [id number] Diagnos is: ICD-10- CM F43.12 Post-tr aumatic stress disorde r, chronic Isidoro MARS 05/27 [facility] Outpatient Encounter [id number] Diagnos is: ICD-10- CM F32.A Depress ion, unspeci sabine Roel CASTILLO 05/30 [facility] Outpatient Encounter [id number] Diagnos is: ICD-10- CM R76.0 Raised antibod y titer TOTSHELLY GARCÍA ANDRAENAILA A 06/01 [facility] PSYTX W PT 30 MINUTES [id number] Diagnos is: ICD-10- CM F33.0 Major depress sotero disorde r, recurre nt, mild Isidoro MARS ARVTiffani 06/17 [facility] Outpatient Encounter [id number] 06/22 [facility] PROGRAM INTAKE ASSESSMENT [id number] Diagnos is: ICD-10- CM J44.9 Chronic obstruc tive pulmona ry disease , unspeci filinnette AVILAMILE DAFNE Vásquez 07/06 [facility] OFF/OP CNSLTJ NEW/EST MOD 40 [id number] Diagnos is: ICD-10- CM R91.8 Other nonspec ific abnorma l finding of lung field MIKAYLA,KENDALL MEADE T 07/06 [facility] Outpatient Encounter [id number] 08/16 [facility] Outpatient Encounter [id number] KWABENA LIZ NDRELL 08/16 [facility] Outpatient Encounter [id number] Isidoro MARS 08/16 [facility] Outpatient Encounter [id number] Isidoro MARS 08/16 [facility] Outpatient Encounter [id number] KWABENA LIZ NDOLYN 08/29 [facility] Outpatient Encounter [id number] Diagnos is: ICD-10- CM F32.A Depress ion, unspeci Roel Gooden 08/31 [facility] Outpatient Encounter [id number] OVI GRACIA Y 09/15 [facility] N [facility] Outpatient Encounter [id number] KWABENA LIZN 09/15 [facility] N [facility] Outpatient Encounter [id number] 10/03 [facility] Outpatient Encounter [id number] KWABENA LIZ NDOLYN 10/03 [facility] Outpatient Encounter [id number] 10/10 [facility] Outpatient Encounter [id number] Roel CASTILLO 10/10 [facility] Outpatient Encounter [id number] KWABENA LIZ NDLUISANAN 10/10 [facility] Outpatient Encounter [id number] 10/12 [facility] OFFICE O/P EST LOW 20 MIN [id number] Diagnos is: ICD-10- CM I10 Essenti al (primar y) hyperte nsRoel Dewey 10/12 [facility] ADMN SARSCOV2 VACC 1 DOSE [id number] Diagnos is: ICD-10- CM Z23 Encount er for immuniz JAX Kevin E 10/13 [facility] PSYTX W PT 30 MINUTES [id number] Diagnos is: ICD-10- CM F33.1 Major depress sotero disorde r, recurre nt, Isidoro Romero ARVA 10/31 [facility] OFF/OP CNSLTJ NEW/EST LOW 30 [id number] Diagnos is: ICD-10- CM R19.5 Other fecal abnorma lities Isidoro HEWITT JESSICA 11/03 [facility] OFFICE O/P NEW LOW 30 MIN [id number] Diagnos is: ICD-10- CM R97.21 Rising PSA fol treatme nt for maligna nt neoplas m of prostat e GAMBOA ,CHRISTIANO 11/09 [facility] SYNCH AUDIO-ONLY EST LOW 20 [id number] Diagnos is: ICD-10- CM R97.20 Elevate d prostat e specifi c antigen [PSA] CHRISTIANO GAMBOA 11/14 [facility] Outpatient Encounter [id number] 11/28 [facility] Outpatient Encounter [id number] KWABENA LIZ 11/30 [facility] PSYTX W PT 30 MINUTES [id number] Diagnos is: ICD-10- CM F33.1 Major depress sotero disorde r, recurre nt, Isidoro Romero ARVA 12/02 [facility] Outpatient Encounter [id number] 12/06 [facility] Outpatient Encounter [id number] SHELLY ADAMS 01/02 [facility] OFFICE O/P EST MOD 30 MIN [id number] Diagnos is: ICD-10- CM J44.9 Chronic obstruc tive pulmona ry disease , unspeci fied SHEELAKAIT RI 01/05 [facility] PT EDUCATION NOC INDIVID [id number] Diagnos is: ICD-10- CM Z12.2 Encntr screen for maligna nt neoplas m of respira tory organs LITO ABREU 01/11 [facility] SLEEP STUDY UNATT&RESP EFFT [id number] Diagnos is: ICD-10- CM G47.30 Sleep apnea, unspeci fied EDDIE WASSERMAN MD 01/11 [facility] PSYTX W PT 30 MINUTES [id number] Diagnos is: ICD-10- CM F33.1 Major depress sotero disorde r, recurre nt, moderat e Isidoro MARS ARVA 01/13 [facility] SLEEP STUDY UNATT&RESP EFFT [id number] [id number] Diagnos is: ICD-10- CM G47.33 Obstruc tive sleep apnea (adult) (pediat delmar) EDDIE WASSERMAN MD 01/24 [facility] POS AIRWAY PRESSURE CPAP [id number] [id number] Diagnos is: ICD-10- CM G47.33 Obstruc tive sleep apnea (adult) (pediat delmar) EDDIE WASSEMRAN MD 01/25 [facility] Outpatient Encounter [id number] 01/26 [facility] Social History Combined list of available smoking, tobacco, and other social history from Department of Defense and Veterans Affairs facilities. Social History Type Response Date Comment Sourc e Tobacco smoking status NHIS VA-TOBACCO USER EVERY DAY 04/15/2024 [facility] History of tobacco use VA-TOBACCO USE WI 30 MIN OF WAKEUP 04/15/2024 [facility] Plan of Care List of future care activities from Department of Veterans Affairs facilities. Additional future care activities may be listed in the Assessment and Plan section. Date/Time Care Activity Care Activity Detail Facili ty 02/23/2025 AMBULATORY - MEDICINE AMBULATORY - MEDICI NE [facility]
--- NOTE | 2025-02-02 10:36 | ED_ITS ---
HPI - URI/Sore Throat General Chief Complaint: Upper Respiratory Infection Stated Complaint: Cough/Chest Congestion Time Seen by Provider: 02/02/25 10:05 Source: patient and RN notes reviewed Mode of arrival: ambulatory Limitations: no limitations History of Present Illness HPI Narrative: 69-year-old male presents Express Care complaining of upper respiratory symptoms for 1 week. Patient states that this started as a sore throat then progressed to nasal congestion, voice hoarseness, cough, headache, chest congestion. Patient reports having pain with inspiration. Patient has a history of COPD and a former smoker. Patient uses inhalers daily. Patient states his shortness of breath has worsened normal. He states he feels like his sputum is thicker and with increased sputum volume more than normal. He denies any chest pains, chest pressure, chest pain with exertion, shortness of breath with exertion, fevers, body aches, ear pain, chills. Related Data Home Medications ?Medication ?Instructions ?Recorded ?Confirmed ?Last Taken ?Type lisinopril 20 mg tablet 20 mg PO DAILY 07/02/22 08/20/22 Unknown History budesonide-formoterol HFA 160 2 puff inhalation BID 08/20/22 08/20/22 Unknown History mcg-4.5 mcg/actuation aerosol inhaler Allergies Allergy/AdvReac Type Severity Reaction Status Date / Time No Known Allergies Allergy Verified 02/02/25 09:50 Review of Systems Review of Systems: CONSTITUTIONAL: Denies fever, chills, or sweats. EYES: Denies visual changes, redness, or discharge. ENT: Denies rhinorrhea or otalgia. Positive for sore throat and nasal congestion. CARDIOVASCULAR: Denies chest pain, chest pain with exertion, palpitations, or edema. RESPIRATORY: Positive for cough and pain with inspiration, dyspnea. GASTROINTESTINAL: Denies abdominal pain, nausea, vomiting, or diarrhea. GENITOURINARY: Denies dysuria or hematuria. SKIN: Denies rash or itching. MUSCULOSKELETAL: Denies back pain, joint pain, or myalgia. NEUROLOGIC: Positive for headaches, negative for numbness, or weakness. PSYCHIATRIC: Denies anxiety or depression. All other systems reviewed are negative, except as documented in HPI. [facility] Past Medical History Medical History Hypertension COPD (chronic obstructive pulmonary disease) Surgical History Surgical History History of ankle surgery left ankle ORIF Social History Social History Tobacco type: smokeless tobacco Additional smoking assessment comments: patient smoked for 45 years quit 2012, now chews tobacco on occasion Alcohol intake: current Alcohol use details: social Substance use type: does not use Living arrangements: with family Occupation/Education: retired Gender identity (if verbalized by the patient): Male Comments At the time of my signature, I reviewed and agree with the nursing past medical, surgical, social, and family history. There is no relevant family history pertinent to the patient complaint. Exam Narrative: GENERAL: This is a well-nourished, well-developed adult, in no apparent distress. They are non ill-appearing, nontoxic appearing. HEAD: normocephalic, atraumatic. EYES: Sclera clear/white. Conjunctiva normal. Vision is grossly intact. Extraocular movements intact EARS: External ears normal, auditory canals clear and without drainage, TMs normal without perforation. Hearing grossly intact. NOSE: External nose normal with no obvious nasal discharge, nasal turbinates without redness, no rhinorrhea. THROAT: Mucous membranes moist, posterior pharynx erythema without swelling. No exudate. Postnasal drip present Uvula midline. NECK: Neck supple, non-tender without lymphadenopathy, masses or thyromegaly. CARDIOVASCULAR: Regular rate and rhythm without murmurs, gallops, or rubs. RESPIRATORY: lungs are diminished bilaterally. Breath sounds equal bilaterally. No wheezes, rales, or rhonchi. SKIN: warm, Dry, intact with no suspicious lesions or rash, good texture and turgor. NEURO: awake, alert, and oriented to person, place and time. There were no obvious focal neurologic abnormalities. EXTREMITIES: No joint tenderness, effusion, or edema noted. BACK: Nontender without deformity. Course Course Emergency Course: Portions of this record may have been created with voice recognition software Level of Care: Express Care Visit Vital Signs Vital signs: Vital Signs Temperature 98.4 F 02/02/25 09:41 Pulse Rate 69 02/02/25 09:41 Respiratory Rate 16 02/02/25 09:41 Blood Pressure 133/81 02/02/25 09:41 Pulse Oximetry 97 02/02/25 09:41 Oxygen Delivery Room Air 02/02/25 09:41 Temperature 98.4 F 02/02/25 09:41 Pulse Rate 69 02/02/25 09:41 Respiratory Rate 16 02/02/25 09:41 Blood Pressure 133/81 02/02/25 09:41 Pulse Oximetry 97 02/02/25 09:41 Oxygen Delivery Room Air 02/02/25 09:41 Reviewed MDM - URI/Sore Throat MDM Narrative Medical decision making narrative: Chest x-ray revealed no evidence of pneumonia or acute findings. Patient has a history of COPD. Patient feels like she feels more short of breath has thicker and increased volume of sputum production. Given his symptoms it is likely the patient has a mild COPD exacerbation. It is the no apparent respiratory distress. Vital signs are stable. Will treat him with doxycycline and prednisone. Patient will uses inhalers as directed and does not need a refill of them. Discussed physical exam findings. Advised supportive measures and signs/symptoms to go to the ER. Pt is appropriate for outpt treatment and f/u. Differential Diagnosis Differential diagnosis: Likely other (Bronchitis, pneumonia, COPD exacerbation) Imaging Data Radiologist's impression: ITS Impressions Chest X-Ray 02/02/25 10:57 Impression: Normal chest. Critical Care Time Critical Care Time Critical Care Time: No Discharge Plan Discharge Clinical Impression: Acute exacerbation of chronic obstructive pulmonary disease Patient Disposition: Home Condition: Stable Instructions: Antibiotic Form, COPD (Chronic Obstructive Pulmonary Disease) (ED) Additional Instructions: Take the doxycycline as directed. Please wear sunscreen while outside while taking doxycycline. Please take the prednisone as directed. Take the prednisone the morning with food. Follow-up in primary care provider in 3 days. If your symptoms worsen, you develop worsening shortness of breath, fevers, chest pains or any other concerns please go to the ER immediately. Continue to use your inhalers as directed for shortness of breath or wheezing. Patient Language: Khmer Prescriptions: New doxycycline monohydrate 100 mg capsule 100 mg PO BID 5 Days Qty: 10 0RF prednisone 20 mg tablet 40 mg PO DAILY 5 Days Qty: 10 0RF No Action budesonide-formoterol 160-4.5 mcg/actuation HFA aerosol inhaler 2 puff INHALATION BID lisinopril 20 mg Tablet 20 mg PO DAILY Follow-up/Referrals: Sasha,Checo Hart MD [Primary Care Provider] - Time of Disposition: 11:11
== END 2025-02-02 11:15 | disposition home or self-care (01) ==
PROVIDERS: PCP Internal Medicine
DX: J44.1 Chronic obstructive pulmonary disease with (acute) exacerbation (principal); I10 Essential (primary) hypertension; Z72.0 Tobacco use
CPT/HCPCS: 71046; 99213; G0463